=== PATIENT | male | born 1960 | race Caucasian/White ===

== ENCOUNTER 2022-03-27 07:50 | Outpatient (CLI) | payer BC, SELFPAY | END 2022-03-27 07:51 | disposition home or self-care (01) | PROVIDERS: PCP Family Medicine; Visit Provider Internal Medicine Cardiovascular Disease | DX: I50.9 Heart failure, unspecified (principal) | CPT/HCPCS: 80061; 93306 ==

== ENCOUNTER 2022-05-08 14:25 | Outpatient (CLI) | payer BC, SELFPAY ==
[2022-05-08 19:07] LABS: Chloride* 107 mmol/L (96-114); Sodium* 140 mmol/L (135-149)
[2022-05-08 19:10] LABS: Carbon Dioxide* 27 mmol/L (20-32); Creatinine* 0.8 mg/dL (0.5-1.5); Estimated Glomerular Filt Rate 99 ml/min
[2022-05-08 19:11] LABS: Blood Urea Nitrogen* 12 mg/dL (7-30); Calcium* 8.4 mg/dL (8.4-10.6); Glucose* 99 mg/dL (60-115)
== END 2022-05-08 14:26 | disposition home or self-care (01) ==
PROVIDERS: Visit Provider Internal Medicine
DX: I50.9 Heart failure, unspecified (principal)
CPT/HCPCS: 80048

== ENCOUNTER 2022-05-23 10:54 | Emergency (ER) | payer BC, SELFPAY ==
[2022-05-23 11:14] VITALS: BP 171/83; PULSE 85; RESP 28; TEMP 37.6; O2SAT 98; BMI 40.4
--- NOTE | 2022-05-23 11:28 | CRLHL7_ITS ---
For Patients: As a result of the Century Cures Act, medical imaging exams and procedure reports are released immediately into your electronic medical record. You may view this report before your referring provider. If you have questions, please contact your health care provider. CHEST 2 VIEWS INDICATION : Cough. IMPRESSION: Stable chest although the lung volumes are slightly decreased since the prior exam. FINDINGS: Cardiomegaly with no change. Mildly prominent vascular and interstitial markings. Some of the prominence is probably due to crowding in low lung volumes. No consolidation or pleural fluid. No pneumothorax. business management manager leads overlie the patient. COMPARISON: Chest radiograph 10/19/2018. Dictated by Dami Barrios MD @ 05/23/2022 1:57:47 PM (Electronically Signed)
--- NOTE | 2022-05-23 11:30 | ED_ITS ---
HPI - General Adult General Chief complaint: Shortness of Breath/Dyspnea Stated complaint: trouble breathing, vomiting Time Seen by Provider: 05/23/22 11:20 History of Present Illness HPI narrative: This 61-year-old male comes in reporting shortness of breath. He states that he began to have a sore throat yesterday and reported a fever. He states that he feels short of breath currently. He does arrive with temperature at 99.7? and respirations at 28. He is maintaining sufficient oximetry at 98% on room air. Related Data Home Medications Medication Instructions Recorded Confirmed carvedilol 6.25 mg tablet 6.25 mg PO BID 03/17/22 05/01/22 aspirin 81 mg tablet,delayed 81 mg PO QDAY 05/01/22 05/01/22 release omeprazole magnesium 2.5 mg oral 10 mg PO QDAY 05/01/22 05/01/22 suspension,delayed release (Prilosec) amlodipine 2.5 mg tablet mg 05/23/22 Previous Rx's Medication Instructions Recorded losartan 25 mg tablet 25 mg PO QDAY #90 tabs 05/08/22 nirmatrelvir 150 mg-ritonavir 100 See Rx Instructions PO .COMPLEX 05/23/22 mg tablets in a dose pack (EUA) #20 ea (Paxlovid) ondansetron 4 mg disintegrating 4 mg PO Q6H #20 tabs 05/23/22 tablet Allergies Allergy/AdvReac Type Severity Reaction Status Date / Time amoxicillin AdvReac Severe Verified 05/01/22 13:54 Penicillins AdvReac Verified 05/01/22 13:54 Review of Systems Status of ROS: Reports: 10 or more systems reviewed and unremarkable except as noted in History and below Narrative: Constitutional: No fevers, no weight gain or loss. Eyes: No discharge. No vision changes. HENT: No congestion, no ear pain. He reports a sore throat. Cardiovascular: No chest pain, no palpitations. Respiratory: No wheezes. He reports shortness of breath. Gastrointestinal: No abdominal pain, no vomiting, no diarrhea. Genitourinary: No dysuria, no hematuria. Musculoskeletal: Normal range of motion. Skin: No rashes, no pruritis. Neurological: No dizziness, weakness, sensory change, speech change. Endo/Heme/Allergies: No bruising or bleeding. No polydipsia. Pysch: no suicidality, no anxiety, no insomnia. All other systems reviewed and are negative. PFSH PFSH Social History Smoking Status: Never smoker Do you use any of these nicotine containing products: None Second hand tobacco smoke exposure: No How often do you have a drink containing alcohol: never How often do you have six or more drinks on one occasion: Never AUDIT-C Alcohol total score: 0 Non-prescribed substance use: denies use service: Yes Exam Narrative: Exam Narrative: Constitutional: Well-developed, well-nourished, no acute distress. HEENT: Normocephalic, atraumatic. Neck: Normal range of motion. Nontender. Supple. Heart: Regular. No murmurs. Normal rate. Intact distal pulses. Lungs: Clear to auscultation. No chest discomfort. No wheezes, rhonchi, or rales. Abdomen: Normal bowel sounds. Nontender. No rebound tenderness. Genitalia: Deferred. Back: No midline tenderness. Normal range of motion. Extremities: Normal range of motion. No injury. Skin: Intact. No rash. Warm. No erythema or pallor. Neurologic: No altered sensation. No weakness. Alert and oriented. Psychiatric: No suicidality. No anxiety or depression. No insomnia. Nursing notes and vitals signs are reviewed. Const: Vital Signs, click to edit/add: Vital Signs - 24 hr 05/23/22 11:14 05/23/22 12:37 05/23/22 12:45 Temperature 99.7 F H Pulse Rate 73 75 Pulse Rate [Pulse Oximeter] 85 Respiratory Rate 28 H Blood Pressure Blood Pressure [Ri ght Upper Arm] 171/83 H Pulse Oximetry 98 98 97 Oxygen Delivery Me thod Room Air 05/23/22 12:51 05/23/22 13:57 Temperature 99.9 F H Pulse Rate 71 Pulse Rate [Pulse Oximeter] 67 Respiratory Rate 36 H 28 H Blood Pressure 132/77 Blood Pressure [Ri ght Upper Arm] 130/84 Pulse Oximetry 96 96 Oxygen Delivery Me thod Room Air Course Vital Signs Vital signs: Initial Vital Signs Temperature 99.7 F H 05/23/22 11:14 Temperature Source Temporal Artery Scan 05/23/22 11:14 Pulse Rate 85 05/23/22 11:14 Respiratory Rate 28 H 05/23/22 11:14 Blood Pressure 171/83 H 05/23/22 11:14 Blood Pressure Mean 112 05/23/22 11:14 Blood Pressure Position Sitting 05/23/22 11:14 Pulse Oximetry 98 05/23/22 11:14 Oxygen Delivery Method 05/23/22 11:14 Vital Signs Temperature 99.7 F H 05/23/22 11:14 Pulse Rate 85 05/23/22 11:14 Respiratory Rate 28 H 05/23/22 11:14 Blood Pressure 171/83 H 05/23/22 11:14 Pulse Oximetry 98 05/23/22 11:14 Oxygen Delivery Method 05/23/22 11:14 Temperature 99.9 F H 05/23/22 13:57 Pulse Rate 67 05/23/22 13:57 Respiratory Rate 28 H 05/23/22 13:57 Blood Pressure 130/84 05/23/22 13:57 Pulse Oximetry 96 05/23/22 13:57 Oxygen Delivery Method 05/23/22 13:57 Medical Decision Making MDM Narrative Medical decision making narrative: This patient comes in with symptoms as described above. Testing for COVID returns positive. Chest x-ray is not showing any acute findings. Lab results also or within normal range. In particular his D-dimer is normal. He complained mostly of nausea and did received 2 separate doses of Zofran which brought relief to his symptoms. He also received a DuoNeb and an oral dose of dexamethasone 10 mg. At the time of discharge the patient appears safe for outpatient management. The treatment plan is reviewed along with written and verbal return precautions. Reasons to return and the importance of close followup were also reviewed. He received prescriptions for Paxil of id and Zofran. Lab Data Labs: Lab Results 05/23/22 05/23/22 05/23/22 Range/Units 11:20 11:55 11:55 WBC 5.96 (4.50-11.00) K/uL RBC 4.37 (4.30-5.90) m/uL Hgb 12.7 L (13.5-17.5) gm/dL Hct 37.0 (37.0-53.0) % MCV 85 (80-100) fL MCH 29 (26-34) pg MCHC 34 (32-36) gm/dL RDW Coeff of Bhaskar 12.6 (11.5-15.5) % Plt Count 178 (140-440) K/uL Neut % (Auto) 81.9 H (42.0-72.0) % Lymph % (Auto) 5.0 L (20-44) % [place] % (Auto) 11.6 H (0.0-11.0) % Eos % (Auto) 0.8 (0.0-7.0) % Baso % (Auto) 0.2 (0.0-3.0) % Neut # (Auto) 4.90 (1.7-7.0) K/uL Lymph # (Auto) 0.30 L (0.90-2.90) K/uL [place] # (Auto) 0.70 (0.00-0.90) K/UL Eos # (Auto) 0.05 (0.00-0.50) K/uL Baso # (Auto) 0.01 (0.00-0.30) K/uL D-Dimer Quant (PE/DVT) (0.00-0.50) ug/ml Sodium 133 L (135-149) mmol/L Potassium 3.7 (3.6-5.1) mmol/L Chloride 105 (96-114) mmol/L Carbon Dioxide 18 L (20-32) mmol/L BUN 8 (7-30) mg/dL Creatinine 0.7 (0.5-1.5) mg/dL Estimated Creat Clear 80.53 Estimated GFR 104 ml/min Glucose 110 (60-115) mg/dL Calcium 8.2 L (8.4-10.6) mg/dL SARS-CoV-2 (PCR) POSITIVE SARS-CoV-2 A (Negative) Influenza Type A (PCR) Negative PCR FLU A (Negative) Influenza Type B (PCR) Negative PCR FLU B (Negative) RSV (PCR) Negative PCR RSV (Negative) 05/23/22 Range/Units 11:55 WBC (4.50-11.00) K/uL RBC (4.30-5.90) m/uL Hgb (13.5-17.5) gm/dL Hct (37.0-53.0) % MCV (80-100) fL MCH (26-34) pg MCHC (32-36) gm/dL RDW Coeff of Bhaskar (11.5-15.5) % Plt Count (140-440) K/uL Neut % (Auto) (42.0-72.0) % Lymph % (Auto) (20-44) % [place] % (Auto) (0.0-11.0) % Eos % (Auto) (0.0-7.0) % Baso % (Auto) (0.0-3.0) % Neut # (Auto) (1.7-7.0) K/uL Lymph # (Auto) (0.90-2.90) K/uL [place] # (Auto) (0.00-0.90) K/UL Eos # (Auto) (0.00-0.50) K/uL Baso # (Auto) (0.00-0.30) K/uL D-Dimer Quant (PE/DVT) 0.52 H (0.00-0.50) ug/ml Sodium (135-149) mmol/L Potassium (3.6-5.1) mmol/L Chloride (96-114) mmol/L Carbon Dioxide (20-32) mmol/L BUN (7-30) mg/dL Creatinine (0.5-1.5) mg/dL Estimated Creat Clear Estimated GFR ml/min Glucose (60-115) mg/dL Calcium (8.4-10.6) mg/dL SARS-CoV-2 (PCR) (Negative) Influenza Type A (PCR) (Negative) Influenza Type B (PCR) (Negative) RSV (PCR) (Negative) Imaging Data Chest x-ray: Radiologist's impression: Cardiomegaly with no change. Mildly prominent vascular and interstitial markings. Some of the prominence is probably due to crowding in low lung volumes. No consolidation or pleural fluid. No pneumothorax. ECG Data Attestation: I personally reviewed and interpreted this ECG as follows: Interpretation: Normal sinus rhythm. Rate is 74 beats per minute. There are no ST or T-wave abnormalities. Discharge Plan Discharge Clinical Impression: COVID-19 Patient Disposition: Home, Self-Care Condition: Improved Additional Instructions: Take medication as needed and indicated. Follow up with MD or return if worsening. Prescriptions: New ondansetron 4 mg tablet,disintegrating 4 mg PO Q6H Qty: 20 0RF Paxlovid (EUA) 150-100 mg tablets,dose pack See Rx Instructions .ROUTE .COMPLEX Qty: 20 0RF Rx Instructions: orally per package directions No Action Prilosec 2.5 mg susp,delayed release for recon 10 mg PO QDAY aspirin 81 mg tablet,delayed release (DR/EC) 81 mg PO QDAY losartan 25 mg tablet 25 mg PO QDAY Qty: 90 3RF Hold Instructions: Order Change amlodipine 2.5 mg tablet Label Comments: TAKE 1 TABLET BY MOUTH DAILY carvedilol 6.25 mg tablet 6.25 mg PO BID Rx Instructions: must administer with a meal/food Follow Up/Referrals: Provider,Not a Local [Primary Care Provider] - Stand Alone Forms: MyHealth Info Instructions
[2022-05-23 12:02] LABS: PCR FLU A Negative PCR FLU A (Negative); PCR FLU B Negative PCR FLU B (Negative); PCR RSV Negative PCR RSV (Negative)
[2022-05-23 12:05] LABS: Basophils Absolute Auto 0.01 K/uL (0.00-0.30); Basophils Percent Auto 0.2 % (0.0-3.0); Eosinophils Absolute Auto 0.05 K/uL (0.00-0.50); Eosinophils Percent Auto 0.8 % (0.0-7.0); Hemoglobin* 12.7 gm/dL (13.5-17.5); Immature Granulocytes Abs Auto 0.03 K/uL (0.00-0.30); Immature Granulocytes Pct Auto 0.5 %; Mean Corpuscular HGB Conc 34 gm/dL (32-36); Mean Corpuscular Hemoglobin 29 pg (26-34); Mean Corpuscular Volume 85 fL (80-100); Monocytes Percent Auto 11.6 % (0.0-11.0); Neutrophils Percent Auto 81.9 % (42.0-72.0); Platelet Count* 178 K/uL (140-440); RDW Coefficient of Variation % 12.6 % (11.5-15.5); Red Blood Count 4.37 m/uL (4.30-5.90); White Blood Count* 5.96 K/uL (4.50-11.00)
[2022-05-23 12:11] LABS: Slide Review Reflex No
[2022-05-23 12:14] LABS: SARS PCR* POSITIVE SARS-CoV-2 (Negative)
[2022-05-23 12:24] LABS: D Dimer Quantitative* 0.52 ug/ml (0.00-0.50)
[2022-05-23 12:37] VITALS: PULSE 73; O2SAT 98
[2022-05-23 12:37] LABS: Chloride* 105 mmol/L (96-114)
[2022-05-23 12:38] LABS: Potassium* 3.7 mmol/L (3.6-5.1); Sodium* 133 mmol/L (135-149)
[2022-05-23 12:40] LABS: Carbon Dioxide* 18 mmol/L (20-32); Creatinine* 0.7 mg/dL (0.5-1.5); Est. Creatinine Clearance* 80.53; Estimated Glomerular Filt Rate 104 ml/min
[2022-05-23 12:41] LABS: Blood Urea Nitrogen* 8 mg/dL (7-30); Calcium* 8.2 mg/dL (8.4-10.6); Glucose* 110 mg/dL (60-115)
[2022-05-23 12:45] VITALS: PULSE 75; O2SAT 97
[2022-05-23 12:51] VITALS: BP 132/77; PULSE 71; RESP 36; O2SAT 96
[2022-05-23] MEDS: ONDANSETRON ODT 4 MG TAB PO ×2 (12:51→13:56)
[2022-05-23] MEDS: IPRAT-ALBUT 0.5-2.5 MG/3 ML NEB 1 NEB IH (13:56)
[2022-05-23] MEDS: dexAMETHasone 10 MG/ML inj PO (13:56)
[2022-05-23 13:57] VITALS: BP 130/84; PULSE 67; RESP 28; TEMP 37.7; O2SAT 96
[2022-05-23 14:39] VITALS: BP 115/75; PULSE 69; RESP 24; TEMP 37.7; O2SAT 94
== END 2022-05-23 14:45 | disposition home or self-care (01) ==
PROVIDERS: Emergency Provider Emergency Medicine Emergency Medical Services
DX: U07.1 COVID-19 (principal)
CPT/HCPCS: 36415; 71046; 80048; 85025; 85379; 87502; 87634; 87635; 93005; 94640; 99284; 99285; A9270; J1100

== ENCOUNTER 2022-05-28 08:47 | Outpatient (CLI) | payer BC, SELFPAY ==
[2022-05-28 14:11] LABS: SARS PCR* POSITIVE SARS-CoV-2 (Negative)
== END 2022-05-28 08:48 | disposition home or self-care (01) ==
PROVIDERS: Visit Provider Family Medicine
DX: U07.1 COVID-19 (principal)
CPT/HCPCS: 87635

== ENCOUNTER 2022-07-27 12:09 | Outpatient (CLI) | payer BC, SELFPAY ==
[2022-07-27] MEDS: PERFLUTREN LIPID MICROSPHERES 2 ML VIAL IV (14:55)
== END 2022-07-27 12:10 | disposition home or self-care (01) ==
PROVIDERS: PCP Family Medicine; Visit Provider Internal Medicine
DX: I50.9 Heart failure, unspecified (principal); I51.7 Cardiomegaly; I34.0 Nonrheumatic mitral (valve) insufficiency; I35.1 Nonrheumatic aortic (valve) insufficiency
CPT/HCPCS: 93306; Q9957

== ENCOUNTER 2022-08-06 17:10 | Outpatient (REF) | payer BC, SELFPAY ==
[2022-08-06 17:52] LABS: Chloride* 105 mmol/L (96-114); Potassium* 4.1 mmol/L (3.6-5.1); Sodium* 138 mmol/L (135-149)
[2022-08-06 17:55] LABS: Blood Urea Nitrogen* 9 mg/dL (7-30); Carbon Dioxide* 27 mmol/L (20-32); Creatinine* 0.9 mg/dL (0.5-1.5); Estimated Glomerular Filt Rate 96 ml/min; Glucose* 123 mg/dL (60-115)
[2022-08-06 17:56] LABS: Calcium* 8.8 mg/dL (8.4-10.6)
[2022-08-06 18:03] LABS: NT Pro B Type NatriureticPept* 128 pg/mL
== END 2022-08-06 17:11 | disposition home or self-care (01) ==
LOC: NPINS 17:10
PROVIDERS: PCP Family Medicine
DX: I42.8 Other cardiomyopathies (principal); I42.9 Cardiomyopathy, unspecified
CPT/HCPCS: 80048; 83880

== ENCOUNTER 2022-08-24 17:43 | Outpatient (REF) | payer BC, SELFPAY ==
[2022-08-24 18:34] LABS: Chloride* 107 mmol/L (96-114); Potassium* 4.7 mmol/L (3.6-5.1); Sodium* 139 mmol/L (135-149)
[2022-08-24 18:37] LABS: Blood Urea Nitrogen* 9 mg/dL (7-30); Calcium* 8.5 mg/dL (8.4-10.6); Carbon Dioxide* 28 mmol/L (20-32); Creatinine* 0.9 mg/dL (0.5-1.5); Estimated Glomerular Filt Rate 96 ml/min; Glucose* 93 mg/dL (60-115)
== END 2022-08-24 17:44 | disposition home or self-care (01) ==
LOC: NPINS 17:43
PROVIDERS: PCP Family Medicine; Visit Provider Family Medicine
DX: I50.22 Chronic systolic (congestive) heart failure (principal)
CPT/HCPCS: 80048

== ENCOUNTER 2022-10-01 14:52 | Outpatient (REF) | payer BC, SELFPAY ==
[2022-10-01 15:55] LABS: Chloride* 106 mmol/L (96-114); Potassium* 4.7 mmol/L (3.6-5.1); Sodium* 139 mmol/L (135-149)
[2022-10-01 15:57] LABS: Estimated Glomerular Filt Rate 85 ml/min
[2022-10-01 15:58] LABS: Blood Urea Nitrogen* 15 mg/dL (7-30); Carbon Dioxide* 26 mmol/L (20-32); Glucose* 100 mg/dL (60-115)
[2022-10-01 15:59] LABS: Calcium* 8.8 mg/dL (8.4-10.6)
== END 2022-10-01 14:53 | disposition home or self-care (01) ==
LOC: NPINS 14:52
PROVIDERS: PCP Family Medicine; Visit Provider Nurse Practitioner
DX: I50.22 Chronic systolic (congestive) heart failure (principal)
CPT/HCPCS: 80048

== ENCOUNTER 2022-10-26 13:49 | Emergency (ER) | payer BC, SELFPAY ==
[2022-10-26] VITALS (9 sets, daily range): BP systolic 126–147; BP diastolic 71–90; PULSE 43–59; RESP 16; TEMP 36.3; O2SAT 97–100; BMI 39.1
--- NOTE | 2022-10-26 14:22 | CRLHL7_ITS ---
For Patients: As a result of the Century Cures Act, medical imaging exams and procedure reports are released immediately into your electronic medical record. You may view this report before your referring provider. If you have questions, please contact your health care provider. INDICATION: SOB TECHNIQUE: Chest 2 views COMPARISON: 05/23/2022 FINDINGS: Tortuosity of the descending thoracic aorta. Cardiac silhouette is mildly enlarged. No fracture. No infiltrate or edema. No effusion or pneumothorax. IMPRESSION: No acute findings. Dictated by Delio Aparicio MD @ 10/26/2022 3:16:04 PM (Electronically Signed)
--- NOTE | 2022-10-26 14:25 | ED.GENADULT ---
HPI - General Adult General Chief complaint: Chest Pain Stated complaint: chest pain Time Seen by Provider: 10/26/22 13:53 Source: patient Mode of arrival: ambulatory Limitations: no limitations History of Present Illness HPI narrative: 62-year-old male coming in today complaining of chest pain going on day 5. Pain is located in the center of the chest radiates up and down the chest. Does not radiate from side to side. Touching it or putting pressure on the chest wall makes it worse, Advil and ice pack make it better. 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 He has not feel short of breath. He denies any recent trips or long car rides. No recent surgeries. He denies any fevers or chills, no coughing. Pain does not change with sleeping or eating. Patient does have history of congestive heart failure as well as reflux, among other things noted in the chart. Related Data Home Medications Medication Instructions Recorded Confirmed aspirin 81 mg tablet,delayed 81 mg PO QDAY 05/01/22 10/26/22 release rosuvastatin 10 mg tablet 10 mg PO QPM 10/26/22 10/26/22 sacubitril 24 mg-valsartan 26 mg 1 tab PO BID 10/26/22 10/26/22 tablet (Entresto) spironolactone 25 mg tablet mg PO 10/26/22 Previous Rx's Medication Instructions Recorded carvedilol 6.25 mg tablet 6.25 mg PO BID #180 tabs 06/15/22 Allergies Allergy/AdvReac Type Severity Reaction Status Date / Time cyclobenzaprine Allergy Intermediate Headache Verified 10/26/22 14:05 esomeprazole Allergy Unknown Abdominal Verified 10/26/22 14:05 Pain amoxicillin AdvReac Severe Verified 10/26/22 14:05 Penicillins AdvReac Verified 10/26/22 14:05 Sulfa Antibiotics Allergy Unknown itching Uncoded 06/15/22 08:05 and swelling in hands and feet Review of Systems Status of ROS: Reports: 10 or more systems reviewed and unremarkable except as noted in History and below [facility] Medical History History of tinnitus (12/16/09) ?Z86.69 - Personal history of other diseases of the nervous system and sense organs (ICD-10) Surgical History Status post nasal polypectomy ?Z98.890 - Other specified postprocedural states (ICD-10) Status post cholecystectomy ?Z90.49 - Acquired absence of other specified parts of digestive tract (ICD-10) Social History Smoking Status: Never smoker Do you use any of these nicotine containing products: None Second hand tobacco smoke exposure: No How often do you have a drink containing alcohol: never How often do you have six or more drinks on one occasion: Never AUDIT-C Alcohol total score: 0 Non-prescribed substance use: denies use service: Yes Exam Narrative: Exam Narrative: Overweight, well-developed patient in no acute distress. Alert and oriented x3. Answers questions appropriately. Mood and affect are appropriate. Thoughts are goal oriented and rational. No tangential or magical thinking noted. Patient speaks in full sentences without needing to catch his breath. HEENT: Normocephalic atraumatic. Pupils are equally round reactive to light. Extraocular muscles are intact. Conjunctivae are moist without any icterus noted. Moist mucous membranes. Neck is soft. Cardiovascular: Heart is regular rate and rhythm S1 and S2 are present without any murmurs. Patient's pain can be reproduced with palpation of the sternum and the right sternal border. Lungs: Clear to auscultation bilaterally no wheezes rhonchi or rales are appreciated. Patient takes deep breaths without any discomfort. Abdomen: Soft and nontender nondistended with normal bowel sounds. No guarding or rebound. No masses or organomegaly appreciated. Extremities: Bilateral lower extremities are without edema. Normal DP and PT pulses. Skin: Well perfused without any obvious rashes. Const: Vital Signs, click to edit/add: Vital Signs - 24 hr 10/26/22 13:58 10/26/22 14:13 10/26/22 14:33 Temperature 97.4 F L Pulse Rate 54 L Pulse Rate [Pulse Oximeter] 59 L Respiratory Rate 16 Blood Pressure 131/71 Blood Pressure [Le ft Upper Arm] 147/90 H Pulse Oximetry 100 99 Oxygen Delivery Me thod Room Air 10/26/22 14:35 10/26/22 15:00 10/26/22 15:02 Temperature Pulse Rate 55 L 53 L 51 L Pulse Rate [Pulse Oximeter] Respiratory Rate Blood Pressure 138/79 Blood Pressure [Le ft Upper Arm] Pulse Oximetry 100 98 99 Oxygen Delivery Me thod Course Course Hospital Course: Patient was quite concerned this was heart related given his history of congestive heart failure. EKG, read by me, shows normal sinus rhythm with a pulse of 60. Labs were entirely normal. Chest x-ray, read by me, without any acute pathology. Vital Signs Vital signs: Initial Vital Signs Temperature 97.4 F L 10/26/22 13:58 Temperature Source Temporal Artery Scan 10/26/22 13:58 Pulse Rate 59 L 10/26/22 13:58 Pulse Rhythm Regular 10/26/22 13:58 Pulse Strength 3+ Normal 10/26/22 13:58 Respiratory Rate 16 10/26/22 13:58 Blood Pressure 147/90 H 10/26/22 13:58 Blood Pressure Mean 109 H 10/26/22 13:58 Blood Pressure Position Semi-Fowlers 10/26/22 13:58 Pulse Oximetry 100 10/26/22 13:58 Oxygen Delivery Method Room Air 10/26/22 13:58 Vital Signs Temperature 97.4 F L 10/26/22 13:58 Pulse Rate 59 L 10/26/22 13:58 Respiratory Rate 16 10/26/22 13:58 Blood Pressure 147/90 H 10/26/22 13:58 Pulse Oximetry 100 10/26/22 13:58 Oxygen Delivery Method Room Air 10/26/22 13:58 Temperature 97.4 F L 10/26/22 13:58 Pulse Rate 51 L 10/26/22 15:02 Respiratory Rate 16 10/26/22 13:58 Blood Pressure 138/79 10/26/22 15:02 Pulse Oximetry 99 10/26/22 15:02 Oxygen Delivery Method Room Air 10/26/22 13:58 Medical Decision Making MDM Narrative Medical decision making narrative: 62-year-old male with chest wall pain. Differential diagnoses includes musculoskeletal discomfort, costochondritis, GERD. I am less concerned about coronary artery disease, pneumothorax, pneumonia or PE given his normal vital signs, normal workup, and the story and physical exam. Recommend ibuprofen as needed, heat to the chest wall and gentle stretching. Returning if symptoms worsen. Patient was in agreement and had no other questions. Lab Data Lab results reviewed: Yes I reviewed the patient's lab results Labs: Lab Results 10/26/22 Range/Units 14:35 WBC 6.52 (4.50-11.00) K/uL RBC 4.94 (4.30-5.90) m/uL Hgb 14.4 (13.5-17.5) gm/dL Hct 43.6 (37.0-53.0) % MCV 88 (80-100) fL MCH 29 (26-34) pg MCHC 33 (32-36) gm/dL RDW Coeff of Bhaskar 12.5 (11.5-15.5) % Plt Count 193 (140-440) K/uL Neut % (Auto) 76.8 H (42.0-72.0) % Lymph % (Auto) 14.6 L (20-44) % [place] % (Auto) 6.1 (0.0-11.0) % Eos % (Auto) 1.4 (0.0-7.0) % Baso % (Auto) 0.2 (0.0-3.0) % Neut # (Auto) 5.00 (1.7-7.0) K/uL Lymph # (Auto) 1.00 (0.90-2.90) K/uL [place] # (Auto) 0.40 (0.00-0.90) K/UL Eos # (Auto) 0.09 (0.00-0.50) K/uL Baso # (Auto) 0.01 (0.00-0.30) K/uL Sodium 138 (135-149) mmol/L Potassium 4.0 (3.6-5.1) mmol/L Chloride 106 (96-114) mmol/L Carbon Dioxide 23 (20-32) mmol/L BUN 8 (7-30) mg/dL Creatinine 0.8 (0.5-1.5) mg/dL Estimated Creat Clear 79.48 Estimated GFR 99 ml/min Glucose 113 (60-115) mg/dL Lactate 0.9 (0.5-1.9) mmol/L Calcium 8.7 (8.4-10.6) mg/dL Total Bilirubin 0.8 (0.1-1.5) mg/dL Direct Bilirubin 0.1 (0.0-0.5) mg/dL AST 21 (12-35) U/L ALT 15 (4-50) U/L Alkaline Phosphatase 75 (40-150) U/L Troponin I 0.01 (0.01-0.04) ng/mL C-Reactive Protein < 0.5 L (0.5-1.0) mg/dL Total Protein 7.4 (6.0-8.3) g/dL Albumin 4.2 (3.3-5.0) g/dL Lipase 76 (23-300) U/L Imaging Data Chest x-ray: Attestation: I have reviewed the pertinent imaging results. Radiologist's impression: Chest 2 views COMPARISON: 05/23/2022 FINDINGS: Tortuosity of the descending thoracic aorta. Cardiac silhouette is mildly enlarged. No fracture. No infiltrate or edema. No effusion or pneumothorax. IMPRESSION: No acute findings. ECG Data Attestation: I personally reviewed and interpreted this ECG as follows: Discharge Plan Discharge Clinical Impression: Acute chest wall pain Patient Disposition: Home, Self-Care Condition: Stable Additional Instructions: Your symptoms are consistent with an inflammation of the joints where the ribs meet the breast bone. Recommend you continue Advil as needed/as directed and using heat pack or ice to the chest wall, whichever one feels better. Do not apply heat or ice directly to the skin. Return to the ER if your symptoms are worsening. There is no evidence of new heart or lung disease during your visit today. Prescriptions: No Action aspirin 81 mg tablet,delayed release (DR/EC) 81 mg PO QDAY carvedilol 6.25 mg tablet 6.25 mg PO BID Qty: 180 3RF Rx Instructions: must administer with a meal/food spironolactone 25 mg tablet PO rosuvastatin 10 mg tablet 10 mg PO QPM Entresto 24-26 mg tablet 1 tab PO BID Follow Up/Referrals: Lawson Bal MD [Primary Care Provider] - Stand Alone Forms: [employer] Info Instructions
[2022-10-26 14:47] LABS: Lactate* 0.9 mmol/L (0.5-1.9)
[2022-10-26 14:50] LABS: Basophils Absolute Auto 0.01 K/uL (0.00-0.30); Basophils Percent Auto 0.2 % (0.0-3.0); Eosinophils Absolute Auto 0.09 K/uL (0.00-0.50); Eosinophils Percent Auto 1.4 % (0.0-7.0); Hematocrit 43.6 % (37.0-53.0); Hemoglobin* 14.4 gm/dL (13.5-17.5); Immature Granulocytes Abs Auto 0.06 K/uL (0.00-0.30); Immature Granulocytes Pct Auto 0.9 %; Lymphocytes Percent Auto 14.6 % (20-44); Mean Corpuscular HGB Conc 33 gm/dL (32-36); Mean Corpuscular Hemoglobin 29 pg (26-34); Mean Corpuscular Volume 88 fL (80-100); Monocytes Percent Auto 6.1 % (0.0-11.0); Neutrophils Percent Auto 76.8 % (42.0-72.0); Platelet Count* 193 K/uL (140-440); RDW Coefficient of Variation % 12.5 % (11.5-15.5); Red Blood Count 4.94 m/uL (4.30-5.90); White Blood Count* 6.52 K/uL (4.50-11.00)
[2022-10-26 14:54] LABS: Slide Review Reflex No
[2022-10-26 15:10] LABS: Albumin* 4.2 g/dL (3.3-5.0); Chloride* 106 mmol/L (96-114)
[2022-10-26 15:11] LABS: Sodium* 138 mmol/L (135-149)
[2022-10-26 15:13] LABS: Creatinine* 0.8 mg/dL (0.5-1.5); Est. Creatinine Clearance* 79.48; Estimated Glomerular Filt Rate 99 ml/min
[2022-10-26 15:14] LABS: Alanine Aminotransferase* 15 U/L (4-50); Alkaline Phosphatase* 75 U/L (40-150); Aspartate Amino Transferase* 21 U/L (12-35); Bilirubin Direct* 0.1 mg/dL (0.0-0.5); Bilirubin Total* 0.8 mg/dL (0.1-1.5); Blood Urea Nitrogen* 8 mg/dL (7-30); Carbon Dioxide* 23 mmol/L (20-32); Glucose* 113 mg/dL (60-115); Lipase* 76 U/L (23-300); Total Protein* 7.4 g/dL (6.0-8.3)
[2022-10-26 15:15] LABS: Calcium* 8.7 mg/dL (8.4-10.6)
[2022-10-26 15:24] LABS: C Reactive Protein* < 0.5 mg/dL (0.5-1.0)
[2022-10-26 15:26] LABS: Troponin I* 0.01 ng/mL (0.01-0.04)
== END 2022-10-26 16:00 | disposition home or self-care (01) ==
PROVIDERS: Emergency Provider Family Medicine; PCP Family Medicine
DX: R07.89 Other chest pain (principal)
CPT/HCPCS: 36415; 71046; 80048; 80076; 83605; 83690; 84484; 85025; 86140; 93005; 99284

== ENCOUNTER 2022-12-14 17:33 | Outpatient (REF) | payer BC, SELFPAY ==
[2022-12-14 19:08] LABS: Chloride* 106 mmol/L (96-114); Sodium* 139 mmol/L (135-149)
[2022-12-14 19:09] LABS: Potassium* 4.6 mmol/L (3.6-5.1)
[2022-12-14 19:11] LABS: Anion Gap 5 mEq/L (7-15); Carbon Dioxide* 28 mmol/L (20-32); Creatinine* 0.8 mg/dL (0.5-1.5); Estimated Glomerular Filt Rate 99 ml/min
[2022-12-14 19:12] LABS: Blood Urea Nitrogen* 8 mg/dL (7-30); Calcium* 8.7 mg/dL (8.4-10.6); Glucose* 83 mg/dL (60-115)
[2022-12-14 19:29] LABS: NT Pro B Type NatriureticPept* 68 pg/mL
== END 2022-12-14 17:34 | disposition home or self-care (01) ==
LOC: NPINS 17:33
PROVIDERS: PCP Family Medicine; Visit Provider Family Medicine
DX: I50.22 Chronic systolic (congestive) heart failure (principal)
CPT/HCPCS: 80048; 83880

== ENCOUNTER 2023-07-23 08:42 | Emergency (ER) | payer BC, SELFPAY ==
[2023-07-23 08:45] VITALS: BP 133/78; PULSE 64; RESP 18; TEMP 36.7; O2SAT 97; BMI 38.4
[2023-07-23 09:18] LABS: Basophils Percent Auto 0.2 % (0.0-3.0); Eosinophils Percent Auto 4.3 % (0.0-7.0); Hematocrit 39.4 % (37.0-53.0); Hemoglobin* 12.7 gm/dL (13.5-17.5); Immature Granulocytes Pct Auto 0.2 %; Lymphocytes Percent Auto 26.9 % (20-44); Mean Corpuscular HGB Conc 32 gm/dL (32-36); Mean Corpuscular Hemoglobin 29 pg (26-34); Mean Corpuscular Volume 90 fL (80-100); Monocytes Percent Auto 10.6 % (0.0-11.0); Neutrophils Percent Auto 57.8 % (42.0-72.0); Platelet Count* 183 K/uL (140-440); RDW Coefficient of Variation % 12.9 % (11.5-15.5); White Blood Count* 4.42 K/uL (4.50-11.00)
[2023-07-23 09:24] LABS: Appearance Urine Clear (Clear); Bilirubin Urine Negative (Negative); Blood Urine Trace-intact (Negative); Color Urine Yellow (Yellow); Glucose Urine Negative (Negative); Ketones Urine Negative (Negative); Leukocyte Esterase Urine Negative (Negative); Nitrite Urine Negative (Negative); Protein Urine Negative (Negative); Urobilinogen Urine 0.2 (0.2-1.0); pH Urine 6.5 (5.0-8.5)
[2023-07-23 09:29] LABS: Slide Review Reflex No
--- NOTE | 2023-07-23 09:29 | ED_ITS ---
HPI - General Adult General Chief complaint: Abdominal Pain Stated complaint: abdominal pain Time Seen by Provider: 07/23/23 08:50 Source: patient Mode of arrival: ambulatory Limitations: no limitations History of Present Illness HPI narrative: patient is a 62-year-old male coming in today complaining about lower abdominal pain going on for about 4 days. Pain is located across the entire lower abdomen. Nothing makes it better, certain movement makes it worse. He believed that he was constipated so he took a laxative 2 times yesterday and had diarrhea around 1:00 a.m. in the morning. The this did not change his discomfort. He rates his pain as a 2/10. He denies any nausea or vomiting. No changes in his appetite. No weight changes. He denies any dysuria, increased urinary frequency or urgency. There is no blood in his stool. Pain does not radiate. Related Data Home Medications Medication Instructions Recorded Confirmed aspirin 81 mg tablet,delayed 81 mg PO QDAY 05/01/22 06/09/23 release rosuvastatin 10 mg tablet 10 mg PO QPM 10/26/22 06/09/23 sacubitril 24 mg-valsartan 26 mg 1 tab PO BID 11/13/22 06/09/23 tablet (Entresto) carvedilol 6.25 mg tablet 6.25 mg PO BID 06/09/23 06/09/23 spironolactone 25 mg tablet 12.5 mg PO QDAY 06/09/23 06/09/23 Previous Rx's Medication Instructions Recorded alprazolam 0.5 mg tablet 0.5 mg PO TID PRN anxiety #30 tabs 06/09/23 Allergies Allergy/AdvReac Type Severity Reaction Status Date / Time cyclobenzaprine Allergy Intermediate Headache Verified 06/09/23 10:27 esomeprazole Allergy Unknown Abdominal Verified 06/09/23 10:27 Pain amoxicillin AdvReac Severe Verified 06/09/23 10:27 Penicillins AdvReac Verified 06/09/23 10:27 Sulfa Antibiotics Allergy Unknown itching Uncoded 06/09/23 10:27 and swelling in hands and feet Review of Systems Status of ROS: Reports: 10 or more systems reviewed and unremarkable except as noted in History and below [facility] Medical History COVID-19 ?U07.1 - COVID-19 (ICD-10) History of tinnitus (12/16/09) ?Z86.69 - Personal history of other diseases of the nervous system and sense organs (ICD-10) Surgical History Status post nasal polypectomy ?Z98.890 - Other specified postprocedural states (ICD-10) Status post cholecystectomy ?Z90.49 - Acquired absence of other specified parts of digestive tract (ICD- 10) Social History Smoking Status: Never smoker Do you use any of these nicotine containing products: None Second hand tobacco smoke exposure: No How often do you have a drink containing alcohol: never How often do you have six or more drinks on one occasion: Never AUDIT-C Alcohol total score: 0 Non-prescribed substance use: denies use Little interest or pleasure in doing things: not at all Feeling down, depressed, or hopeless: several days service: Yes Exam Narrative: Exam Narrative: Well-nourished well-developed patient in no acute distress. Alert and oriented. Answers questions appropriately. Mood Is appropriate, affect is sl ightly flat. Thoughts are goal oriented and rational. No tangential or magical thinking noted. Patient speaks in full sentences without needing to catch His breath. he does not appear ill or toxic. HEENT: Normocephalic atraumatic. Pupils are equally round reactive to light. Extraocular muscles are intact. Conjunctivae are moist without any icterus noted. Moist mucous membranes. Posterior pharynx is normal. Neck is soft without any lymphadenopathy or thyromegaly. No masses are appreciated. Cardiovascular: Heart is regular rate and rhythm S1 and S2 are present without any murmurs. Lungs: Clear to auscultation bilaterally no wheezes rhonchi or rales are appreciated. Patient takes deep breaths without any discomfort. Abdomen: Soft and nontender nondistended with normal bowel sounds. No guarding or rebound. No masses or organomegaly appreciated. Extremities: Bilateral lower extremities are without edema. Skin: Well perfused . Const: Vital Signs, click to edit/add: Vital Signs - 24 hr 07/23/23 08:45 Temperature 98.1 F Pulse Rate [Pulse Oximeter] 64 Respiratory Rate 18 Blood Pressure [Ri ght Upper Arm] 133/78 Pulse Oximetry 97 Oxygen Delivery Me thod Room Air Course Course ED Course: Blood work was unremarkable. Vital Signs Vital signs: Initial Vital Signs Temperature 98.1 F 07/23/23 08:45 Temperature Source Oral 07/23/23 08:45 Pulse Rate 64 07/23/23 08:45 Respiratory Rate 18 07/23/23 08:45 Blood Pressure 133/78 07/23/23 08:45 Blood Pressure Mean 96 07/23/23 08:45 Blood Pressure Position Sitting 07/23/23 08:45 Pulse Oximetry 97 07/23/23 08:45 Oxygen Delivery Method Room Air 07/23/23 08:45 Vital Signs Temperature 98.1 F 07/23/23 08:45 Pulse Rate 64 07/23/23 08:45 Respiratory Rate 18 07/23/23 08:45 Blood Pressure 133/78 07/23/23 08:45 Pulse Oximetry 97 07/23/23 08:45 Oxygen Delivery Method Room Air 07/23/23 08:45 Temperature 98.1 F 07/23/23 08:45 Pulse Rate 64 07/23/23 08:45 Respiratory Rate 18 07/23/23 08:45 Blood Pressure 133/78 07/23/23 08:45 Pulse Oximetry 97 07/23/23 08:45 Oxygen Delivery Method Room Air 07/23/23 08:45 Medical Decision Making MDM Narrative Medical decision making narrative: 62-year-old male with mild, nonspecific abdominal discomfort with normal laboratory evaluations. We discussed causes could include cramping of the bowels, musculoskeletal pain, mild constipation. I do not see any evidence of infection, inflammation. There is no evidence of a UTI. At this point recommend symptomatic treatment and we discussed reasons for follow-up including fevers, vomiting or worsening pain. Patient had no other questions. Lab Data Lab results reviewed: Yes I reviewed the patient's lab results Labs: Lab Results 07/23/23 07/23/23 Range/Units 09:10 09:15 WBC 4.42 L (4.50-11.00) K/uL RBC 4.40 (4.30-5.90) m/uL Hgb 12.7 L (13.5-17.5) gm/dL Hct 39.4 (37.0-53.0) % MCV 90 (80-100) fL MCH 29 (26-34) pg MCHC 32 (32-36) gm/dL RDW Coeff of Bhaskar 12.9 (11.5-15.5) % Plt Count 183 (140-440) K/uL Neut % (Auto) 57.8 (42.0-72.0) % Lymph % (Auto) 26.9 (20-44) % [place] % (Auto) 10.6 (0.0-11.0) % Eos % (Auto) 4.3 (0.0-7.0) % Baso % (Auto) 0.2 (0.0-3.0) % Neut # (Auto) 2.60 (1.7-7.0) K/uL Lymph # (Auto) 1.20 (0.90-2.90) K/uL [place] # (Auto) 0.50 (0.00-0.90) K/UL Eos # (Auto) 0.20 (0.00-0.50) K/uL Baso # (Auto) 0.00 (0.00-0.30) K/uL Abs Immat Gran (auto) 0.00 (0.00-0.30) K/uL Imm/Tot Granulo (auto) 0.2 % Sodium 139 (135-149) mmol/L Potassium 4.1 (3.6-5.1) mmol/L Chloride 107 (96-114) mmol/L Carbon Dioxide 27 (20-32) mmol/L Anion Gap 5 L (7-15) mEq/L BUN 7 (7-30) mg/dL Creatinine 0.8 (0.5-1.5) mg/dL Estimated Creat Clear 79.48 Estimated GFR 99 ml/min Glucose 94 (60-115) mg/dL Calcium 8.9 (8.4-10.6) mg/dL Total Bilirubin 0.9 (0.1-1.5) mg/dL Direct Bilirubin 0.2 (0.0-0.5) mg/dL AST 21 (12-35) U/L ALT 11 (4-50) U/L Alkaline Phosphatase 69 (40-150) U/L C-Reactive Protein < 0.5 L (0.5-1.0) mg/dL Total Protein 7.0 (6.0-8.3) g/dL Albumin 4.0 (3.3-5.0) g/dL Lipase 55 (23-300) U/L Urine Color Yellow (Yellow) Urine Appearance Clear (Clear) Urine pH 6.5 (5.0-8.5) Ur Specific [place] 1.020 (1.000-1.030) Urine Protein Negative (Negative) Urine Glucose (UA) Negative (Negative) Urine Ketones Negative (Negative) Urine Blood Trace-intact A (Negative) Urine Nitrite Negative (Negative) Urine Bilirubin Negative (Negative) Urine Urobilinogen 0.2 (0.2-1.0) Ur Leukocyte Esterase Negative (Negative) Urine RBC 0-2 (0-2) Urine WBC 0-2 (0-5) Ur Squamous Epith Cells Few (None-Few) Urine Bacteria Few A (None) Urine Mucus Few A (None) Discharge Plan Discharge Clinical Impression: Abdominal pain Patient Disposition: Home, Self-Care Condition: Stable Additional Instructions: Your workup today was unremarkable. There is no evidence of infection or inflammation noted. Causes of abdominal discomfort can include cramping of the bowels or muscular will skeletal discomfort. Okay to try Tylenol or heating pad to the uncomfortable area. Return to the ER if you develop fever, vomiting or worsening pain. Would recommend stopping the laxatives. Prescriptions: No Action aspirin 81 mg tablet,delayed release (DR/EC) 81 mg PO QDAY Entresto 24-26 mg tablet 1 tab PO BID spironolactone 25 mg tablet 12.5 mg PO QDAY carvedilol 6.25 mg tablet 6.25 mg PO BID Patient Comments: Patient takes half a tab alprazolam 0.5 mg tablet 0.5 mg PO TID PRN (Reason: anxiety) Qty: 30 0RF rosuvastatin 10 mg tablet 10 mg PO QPM Follow Up/Referrals: Lawson Bal MD [Primary Care Provider] - Stand Alone Forms: [employer] Info Instructions
[2023-07-23 09:30] LABS: Chloride* 107 mmol/L (96-114); Potassium* 4.1 mmol/L (3.6-5.1); Sodium* 139 mmol/L (135-149)
[2023-07-23 09:32] LABS: Creatinine* 0.8 mg/dL (0.5-1.5); Est. Creatinine Clearance* 79.48; Estimated Glomerular Filt Rate 99 ml/min
[2023-07-23 09:33] LABS: Anion Gap 5 mEq/L (7-15); Blood Urea Nitrogen* 7 mg/dL (7-30); Calcium* 8.9 mg/dL (8.4-10.6); Carbon Dioxide* 27 mmol/L (20-32); Glucose* 94 mg/dL (60-115)
[2023-07-23 09:34] LABS: Alanine Aminotransferase* 11 U/L (4-50); Alkaline Phosphatase* 69 U/L (40-150); Aspartate Amino Transferase* 21 U/L (12-35); Bilirubin Direct* 0.2 mg/dL (0.0-0.5); Bilirubin Total* 0.9 mg/dL (0.1-1.5); Lipase* 55 U/L (23-300)
[2023-07-23 09:55] LABS: C Reactive Protein* < 0.5 mg/dL (0.5-1.0)
[2023-07-23 09:56] LABS: Bacteria Urine Few; Mucus Urine Few; RBC Urine 0-2 (0-2); Squamous Epithelial Cell Urine Few (None-Few); WBC Urine 0-2 (0-5)
--- OUTSIDE RECORDS SUMMARY | 2023-07-30 12:18 | XMS_ITS | Clinical Summary ---
Author Name Unknown Organization [facility] Address [place], [place] [address] Care Team Providers Care Resident Assistant Name Role Phone Racheal Saldana MD Unavailable [phone] [facility] Unavailable Lawson Bal MD Primary Care Provider Allergies Active Allergy Reactions Criticality Noted Date Comments Amoxicillin Hives 08/10/2007 Cyclobenzaprine Headache,Other - Describe In Comment Field Sore throat and dry mouth Esomeprazole Other - Describe In Comment Field stomach pain Sulfa (Sulfonamide Antibiotics) 08/10/2007 as a child Medications Medication Sig Dispensed Refills Start Date End Date Status omeprazole (PRILOSEC) 10 mg capsule Take 1 capsule by mouth once daily before a meal. 0 01/30/2013 Active acetaminophen (TYLENOL) 325 mg tabletIndication s:pain Take 650 mg by mouth every 4 hours if needed. Max acetaminophen dose: 4000mg in 24 hrs. Indications: Pain Active spironolactone (ALDACTONE) 25 mg tabletIndication s:Heart failure, unspecified HF chronicity, unspecified heart failure type (HC) Take 0.5 Tablets (12.5 mg) by mouth once daily. 45 Tablet 3 11/26/2022 Active furosemide (LASIX) 20 mg tabletIndication s:SOB (shortness of breath) TAKE ONE-HALF TABLET EVERY DAY DIRECTED BY [facility] 15 Tablet 12/07/2022 Active losartan (COZAAR) 50 mg tabletIndication s:Chronic HFrEF (heart failure with reduced ejection fraction) (HC) Take 1 Tablet (50 mg) by mouth two times daily. 180 Tablet 3 01/11/2023 Active rosuvastatin (CRESTOR) 10 mg tabletIndication s:Dyslipidemia Take 1 Tablet (10 mg) by mouth once daily. Further refills at appointment on July 27, 2023 90 Tablet 07/19/2023 Active carvediloL (COREG) 3.125 mg tabletIndication s:Heart failure, unspecified HF chronicity, unspecified heart failure type (HC) Take 1 Tablet (3.125 mg) by mouth two times daily with meals. 180 Tablet 3 07/27/2023 Active aspirin (ECOTRIN) 81 mg enteric coated tablet Take 1 tablet by mouth once daily with a meal. 0 02/16/2020 4 Discontinue d(*Med complete/Re gimen complete/Le tal of care change) carvediloL (COREG) 3.125 mg tabletIndication s:Heart failure, unspecified HF chronicity, unspecified heart failure type (HC) Take 1 Tablet (3.125 mg) by mouth two times daily with meals. 180 Tablet 3 03/09/2023 4 Discontinue d(Reorder (E-cancel not sent)) rosuvastatin (CRESTOR) 10 mg tabletIndication s:Dyslipidemia Take 1 Tablet (10 mg) by mouth once daily. Due for cardiology follow up. Please call [phone] to schedule. 90 Tablet 06/16/2023 4 Discontinue d(Reorder (E-cancel not sent)) Active Problems Problem Noted Date Diagnosed Date Primary cardiomyopathy 04/04/2021 Cardiomyopathy 05/12/2019 Allergic rhinitis, cause unspecified 08/10/2007 Screening for lipoid disorders 08/10/2007 Overview: 02-22-2006 Total-214 LDL-136 HDL-45 Trig-163 Encounters Date Type Department Care Team Description 07/27/2023 1:30 PM CDT Office Visit [address] [place] [address] Cortes Schumacher MD Follow Up (6 month F/U, echo done 07/10. pt states feeling good, no recent or current cardiac symptoms. Feels heart is doing really well, no SOB or dizziness which is new for him. Questions about carvedilol) 07/27/2023 Telephone [place] [facility] [address] [facility] [address] [place] [phone] Cortes Schumacher MD Medication Management (GLP-1 mcgee check ) 07/27/2023 Travel 07/11/2023 12:57 PM CDT - 07/11/2023 11:59 PM CDT Hospital Encounter [facility] [address] [facility] [place] [address] Fernanda Wakefield CNS Primary cardiomyopathy (HC) 07/11/2023 Travel 06/16/2023 Refill [facility] [place] [address] [facility] [address] [place] [phone] Cassidy Leonardo NP Refill Request (Rosuvastatin) 05/04/2023 Travel from Last 3 Months Immunizations Name Administration Dates Next Due Td (Age >=7 Years) 04/26/1999 Family History Medical History Relation Name Comments Unknown Father [place] age 40 Other Maternal Uncle Kidney Failur e Thyroid Disease Mother Diabetes Paternal Aunt 1 Other Paternal Aunt 2 [place] Allergies Sister 2 Relation Name Status Comments Brother Alive Father Maternal Uncle Mother Alive Paternal Aunt 1 Paternal Aunt 2 Sister 1 Alive Sister 2 Social History Tobacco Use Types Packs/Day Years Used Date Smoking Tobacco: Never Smokeless Tobacco: Never Tobacco Cessation:Counseling Given: Yes Comments:Non Smoker Alcohol Use Standard Drinks/Week Comments No 0 (1 standard drink = 0.6 oz pur e alcohol) Social Connections Answer Date Recorded Frequency of Communication with Friends and Fami ly Not on file 04/26/2021 Financial Resource Strain Answer Date R ecorded Difficulty of Paying Living Expenses Not on file 04/26/2021 Difficulty of Paying Living Expenses Not on file 04/26/2021 Sex and Gender Information Value Date Recorded Sex Assigned at Not on file Gender Identity Not on file Sexual Orientation Not on file Obstetrics History Last Filed Vital Signs Vital Sign Reading Time Taken Comments Blood Pressure 130/92 07/27/2023 1:23 PM CDT Pulse 62 07/27/2023 1:23 PM CDT Temperature 36.8 ??C (98.2 ??F) 12/05/2018 2:08 PM CD T Respiratory Rate 14 02/16/2020 3:10 PM CDT Oxygen Saturation 97% 07/27/2023 1:23 PM CDT Inhaled Oxygen Concentration - - Weight 124.7 kg (275 lb) 07/27/2023 1:23 PM CDT Height 180.3 cm (5' 11) 07/27/2023 1:23 PM CDT Body Mass Index 38.35 07/27/2023 1:23 PM CDT Plan of Treatment Health Maintenance Due Date Last Done Comments Pneumococcal series for age 6-64 (1 of 2 - PCV) 1964 Tdap 1969 Depression screening for age 12+ 1970 HIV for age 15-65 1973 Hepatitis C screening for ag e 18-79 1976 Colonoscopy through age 75 10/18/2003 Zoster (shingles) series for age 50+ (1 of 2) 2008 Tetanus booster 04/26/2009 04/26/1999 Lipids for age 45-75 02/22/2011 02/22/2006 (Completed outside of [facility]) COVID-19 vaccine series (2 - 2022- season) 2022 2020 Influenza for age 50-64 12/26/2023 BMI (ht and wt on same day) for age 18+ 07/26/2024 07/27/2023, 08/06/2022, 07/21/2019, Additional history exists Procedures Procedure Name Priority Date/Time Associated Diagnosis Comments ECHO TTE COMPLETE WO CONTRAST Routine 07/11/2023 1:39 PM CDT Primary cardiomyopathy (HC) from Last 3 Months Results * ECHO TTE COMPLETE WO CONTRAST (07/11/2023 1:39 PM CDT) AORTIC VALVE MEAN PG 3 mmHg EJECTION FRACTION 43 % LVEDD 6.7 cm EJECTION FRACTION 40 - 45% Anatomical Region Laterality Modality Ultrasound 07/11/2023 12:0 7 PM CDT Narrative 07/11/2023 6:51 PM CDT ECHOCARDIOGRAM PATIENCE LLANES ? Accession#: ?? [id number] : ?1960 62 years Study Date: ?? 07/11/2023 12:07:01 PM Gender: M ?BP: ? 127/77 mmHg Height: 180.34 cm ?BSA: ?2.46 m? ? ? Weight: 130.64 kg ?Tech: ? GNM ? Referring MD: FERNANDA WAKEFIELD Site: ? Reading Location: [facility] Patient Location: Outpatient. Procedure: 2D, Color Doppler and Spectral Doppler. Indication for study: Primary Cardiomyopathy Cardiac Rhythm: Regular.Study quality: Good. Final Impressions: 1. Moderate to severely increased LV size, normal wall thickness, mildly reduced global systolic function with an estimated EF of 40 - 45%. 2. There is mild global left ventricular hypokinesis. 3. Right ventricular cavity size is normal, global systolic RV function is normal. 4. The aortic valve is trileaflet and sclerotic, no stenosis and no regurgitation. 5. The mitral valve is sclerotic, mild mitral regurgitation. Comparison Compared to prior exam images and report of TTE 07/27/2022: - The left ventricular function has slightly improved. Chamber Sizes and Function Moderate to severely increased left ventricular size, normal wall thickness, mildly reduced global systolic function with an estimated EF of 40 - 45%. There is mild global left ventricular hypokinesis. Left atrial size is mildly enlarged. Left atrial pressure is normal. Right ventricular cavity size is normal, global systolic RV function is normal. RV wall thickness is normal. The right atrium is mildly enlarged. Right atrial area is 19 cm? ? ?. The pulmonary artery is of normal size and origin. The sinus of Valsalva is normal sized. The ascending aorta is normal sized. Valves, RV Pressures and Diastolic Function The aortic valve is trileaflet and sclerotic, no stenosis and no regurgitation. The mitral valve is sclerotic, mild mitral regurgitation. Spectral Doppler shows Grade 1 pattern of LV diastolic filling. The tricuspid valve is normal in structure. Tricuspid regurgitation is regurgitation is not evident. The pulmonic valve is normal. No pulmonary regurgitation. Masses, Effusion, Shunts There is no pericardial effusion. The inferior vena cava is normal sized, respiratory size variation greater than 50%. No left to right shunting was detected by limited color flow Doppler interrogation of the interatrial septum. MEASUREMENTS AND CALCULATIONS 2-D Measurements and LV Function: LVID (d) 6.6 cm LV FS% (2D) ?? 25 % LVID (s) 5.0 cm LVOT diameter 2.4 cm IVS (d) ??1.0 cm HR ?55 bpm LVPW (d) 0.9 cm LA Vol index ??36 ml/m2 Ao Sinus 3.5 cm RA area ? 19 cm? ? ? Asc Ao ?? 3.6 cm RV Max 4C (d) 3.1 cm LA ? 5.2 cm Diastology: Mitral ?Tissue Doppler E Peak 0.7 m/s ??e', Septum ? 0.08 m/s A Peak 0.8 m/s ??e', Lateral ?0.08 m/s E/A ?0.9 ?E/e' Average ?? 8.91 DT ? 248 msec Aortic Valve: Vmax ? 1.2 m/s ??ALEM (V) ?? 2.89 cm? ? ? VTI ?0.30 m ?? ALEM (I) ?? 2.87 cm? ? ? LVOT V max 0.7 m/s ??Max PG ?5 mmHg LVOT VTI ?? 0.19 m ?? Mean PG ?? 3 mmHg SV ? 87 ml ?Dim Index 0.63 SV index ?? 35 ml/m? ? ? CO ?4.8 l/min ?CI ?1.9 l/min/m? ? ? Mitral Valve: MVA ?3.1 cm? ? ? MV P 1/2 72 msec Tricuspid Valve and estimated PA pressures: TAPSE 2.6 cm . This study was interpreted by an [facility] accredited facility. ??Final ?? Procedure Note Delio Maldonado MD - 07/11/2023 ECHOCARDIOGRAM PATIENCE LLANES : 1960 62 years Study Date: 07/11/2023 12:07:01 PM Gender: M BP: 127/77 mmHg Height: 180.34 cm BSA: 2.46 m? ? ? Weight: 130.64 kg Tech: [facility] Referring MD: FERNANDA WAKEFIELD Site: Reading Location: [facility] Patient Location: Outpatient. Procedure: 2D, Color Doppler and Spectral Doppler. Indication for study: Primary Cardiomyopathy Cardiac Rhythm: Regular.Study quality: Good. Final Impressions: 1. Moderate to severely increased LV size, normal wall thickness, mildlyreduced global systolic function with an estimated EF of 40 - 45%. 2. There is mild global left ventricular hypokinesis. 3. Right ventricular cavity size is normal, global systolic RV functionis normal. 4. The aortic valve is trileaflet and sclerotic, no stenosis and noregurgitation. 5. The mitral valve is sclerotic, mild mitral regurgitation. Comparison Compared to prior exam images and report of TTE 07/27/2022: - The left ventricular function has slightly improved. Chamber Sizes and Function Moderate to severely increased left ventricular size, normal wallthickness, mildly reduced global systolic function with an estimated EF of40 - 45%. There is mild global left ventricular hypokinesis. Left atrialsize is mildly enlarged. Left atrial pressure is normal. Right ventricularcavity size is normal, global systolic RV function is normal. RV wallthickness is normal. The right atrium is mildly enlarged. Right atrialarea is 19 cm? ? ?. The pulmonary artery is of normal size and origin. Thesinus of Valsalva is normal sized. The ascending aorta is normal sized. Valves, RV Pressures and Diastolic Function The aortic valve is trileaflet and sclerotic, no stenosis and noregurgitation. The mitral valve is sclerotic, mild mitral regurgitation.Spectral Doppler shows Grade 1 pattern of LV diastolic filling. Thetricuspid valve is normal in structure. Tricuspid regurgitation isregurgitation is not evident. The pulmonic valve is normal. No pulmonaryregurgitation. Masses, Effusion, Shunts There is no pericardial effusion. The inferior vena cava is normal sized,respiratory size variation greater than 50%. No left to right shunting wasdetected by limited color flow Doppler interrogation of the interatrialseptum. MEASUREMENTS AND CALCULATIONS 2-D Measurements and LV Function: LVID (d) 6.6 cm LV FS% (2D) 25 % LVID (s) 5.0 cm LVOT diameter 2.4 cm IVS (d) 1.0 cm HR 55 bpm LVPW (d) 0.9 cm LA Vol index 36 ml/m2 Ao Sinus 3.5 cm RA area 19 cm? ? ? Asc Ao 3.6 cm RV Max 4C (d) 3.1 cm LA 5.2 cm Diastology: Mitral Tissue Doppler E Peak 0.7 m/s e', Septum 0.08 m/s A Peak 0.8 m/s e', Lateral 0.08 m/s E/A 0.9 E/e' Average 8.91 DT 248 msec Aortic Valve: Vmax 1.2 m/s ALEM (V) 2.89 cm? ? ? VTI 0.30 m ALEM (I) 2.87 cm? ? ? LVOT V max 0.7 m/s Max PG 5 mmHg LVOT VTI 0.19 m Mean PG 3 mmHg SV 87 ml Dim Index 0.63 SV index 35 ml/m? ? ? CO 4.8 l/min CI 1.9 l/min/m? ? ? Mitral Valve: MVA 3.1 cm? ? ? MV P 1/2 72 msec Tricuspid Valve and estimated PA pressures: TAPSE 2.6 cm . This study was interpreted by an [facility] accredited facility. Final Fernanda Wakefield LIEUTENA[employer] COLONEL ECHO ORD from Last 3 Months Advance Directives * Full Code (Latest Code Status on File) Date Activated Date Inactivated Comments 12/05/2018 11:59 AM 12/05/2018 3:12 PM Care Teams Resident Assistant Relationship Specialty Start Date End Date Lawson Bal MD [address] [place] [address] PCP - General Family Practice 06/02/23 Racheal Saldana MD [address] [place] [address] 12/30/10 [facility] [address] [address] Cardiology - CHF 06/11/22
== END 2023-07-23 10:11 | disposition home or self-care (01) ==
PROVIDERS: Emergency Provider Family Medicine; PCP Family Medicine
DX: R10.30 Lower abdominal pain, unspecified (principal)
CPT/HCPCS: 36415; 80048; 80076; 81001; 83690; 85025; 86140; 87086; 99283; 99284

== ENCOUNTER 2023-08-13 11:50 | Outpatient (CLI) | payer BC, SELFPAY ==
--- OUTSIDE RECORDS SUMMARY | 2023-08-13 11:53 | XMS_ITS | Clinical Summary ---
Author Name Unknown Organization [email or web address] [facility] Address [place], [place] [address] Care Team Providers Care Director Of Informatics Name Role Phone Racheal Saldana MD Unavailable [facility] Unavailable Lawson Bal MD Primary Care Provider [...] TAKE ONE-HALF TABLET EVERY DAY DIRECTED BY [facility] 15 Tablet 12/07/2022 Active losartan (COZAAR) 50 [...] Due for cardiology follow up. Please call [phone] to schedule. 90 Tablet 06/16/2023 4 Discontinue d(Reorder (E-cancel not sent)) Active Problems Problem Noted Date Diagnosed Date Primary cardiomyopathy 04/04/2021 Cardiomyopathy 05/12/2019 Allergic rhinitis, cause unspecified 08/10/2007 Screening for lipoid disorders 08/10/2007 Overview: 02-22-2006 Total-214 LDL-136 HDL-45 Trig-163 Encounters Date Type Department Care Team Description 07/27/2023 1:30 PM CDT Office Visit [address] [place] [address] Cortes Schumacher MD Follow Up (6 month F/U, echo done 07/10. pt states feeling good, no recent or current cardiac symptoms. Feels heart is doing really well, no SOB or dizziness which is new for him. Questions about carvedilol) 07/27/2023 Telephone [facility] [address] [facility] [address] [place] [phone] Cortes Schumacher MD Medication Management (GLP-1 mcgee check ) 07/27/2023 Travel 07/11/2023 12:57 PM CDT - 07/11/2023 11:59 PM CDT Hospital Encounter [facility] [address] [facility] [place] [address] Laurita Wakefield CNS Primary cardiomyopathy (HC) 07/11/2023 Travel 06/16/[address] [facility] [place] [address] [facility] [address] [place] [phone] Cassidy Leonardo NP Refill Request (Rosuvastatin) from Last 3 Months Immunizations Name Administration Dates Next Due Td (Age >=7 Years) 04/26/1999 Family History Medical History Relation Name Comments Unknown Father UT age 40 Other Maternal Uncle Kidney Failur e Thyroid Disease Mother Diabetes Paternal Aunt 1 Other Paternal Aunt 2 UT Allergies Sister 2 Relation Name Status Comments [...] age 45-75 02/22/2011 02/22/2006 (Completed outside of [facility]) COVID-19 vaccine series (2 - 2022- season) [...] CDT Narrative 07/11/2023 6:51 PM CDT ECHOCARDIOGRAM HARVINDER LLANES ? Accession#: ?? [id number] : ?1960 62 years Study Date: ?? 07/11/2023 12:07:01 PM Gender: M ?BP: ? 127/77 mmHg Height: 180.34 cm ?BSA: ?2.46 m? ? ? Weight: 130.64 kg ?Tech: ? GNM ? Referring MD: LAURITA WAKEFIELD Site: ? [facility] Reading Location: [facility] Patient Location: Outpatient. Procedure: 2D, Color Doppler [...] . This study was interpreted by an [facility] accredited facility. ??Final ?? Procedure Note Delio Maldonado MD - 07/11/2023 ECHOCARDIOGRAM HARVINDER LLANES : 1960 62 years Study Date: 07/11/2023 12:07:01 PM Gender: M BP: 127/77 mmHg Height: 180.34 cm BSA: 2.46 m? ? ? Weight: 130.64 kg Tech: [facility] Referring MD: LAURITA WAKEFIELD Site: [facility] Reading Location: [facility] Patient Location: Outpatient. Procedure: 2D, Color Doppler [...] . This study was interpreted by an [facility] accredited facility. Final Laurita Wakefield [employer]PA[employer] CONSULTANT ECHO ORD from Last 3 Months Advance Directives * Full Code (Latest Code Status on File) Date Activated Date Inactivated Comments 12/05/2018 11:59 AM 12/05/2018 3:12 PM Care Teams Director Of Informatics Relationship Specialty Start Date End Date Lawson Bal MD [address] [place] [address] PCP - General Family Practice 06/02/23 Racheal Saldana MD [address] [place] [address] 12/30/10 [facility] [place] [address] [address] Cardiology - CHF 06/11/22
--- NOTE | 2023-08-13 13:03 | W.ANESCHARGE ---
Anesthesia Charges Start Date/Time Anesthesia Start Date: 08/13/23 Anesthesia Start Time: 12:45 Stop Date/Time Anesthesia Stop Date: 08/13/23 Anesthesia Stop Time: 13:26
--- NOTE | 2023-08-13 13:29 | W.ANESCHARGE ---
Anesthesia Charges Start Date/Time Anesthesia Start Date: 08/13/23 Anesthesia Start Time: 12:45 Stop Date/Time Anesthesia Stop Date: 08/13/23 Anesthesia Stop Time: 13:26
== END 2023-08-13 11:51 | disposition home or self-care (01) ==
LOC: OP CLINIC 11:51
PROVIDERS: PCP Family Medicine; Visit Provider Internal Medicine
DX: Z12.11 Encounter for screening for malignant neoplasm of colon (principal); K63.5 Polyp of colon; D50.0 Iron deficiency anemia secondary to blood loss (chronic)
CPT/HCPCS: 00731; 00813; 43239; 45385; 88305; J2704

== ENCOUNTER 2023-08-19 19:53 | Emergency (ER) | payer BC, SELFPAY ==
[2023-08-19 19:55] VITALS: BP 145/84; PULSE 100; RESP 16; TEMP 36.4; O2SAT 99; BMI 38.1
[2023-08-19 20:14] LABS: Appearance Urine Clear (Clear); Bilirubin Urine Negative (Negative); Blood Urine Negative (Negative); Color Urine Light yellow (Yellow); Glucose Urine Negative (Negative); Ketones Urine Negative (Negative); Leukocyte Esterase Urine Negative (Negative); Nitrite Urine Negative (Negative); Protein Urine Negative (Negative); Specific Gravity Urine <= 1.005 (1.000-1.030); Urobilinogen Urine 0.2 (0.2-1.0); pH Urine 6.5 (5.0-8.5)
[2023-08-19 20:33] LABS: RBC Urine 0-2 (0-2); WBC Urine 0-2 (0-5)
--- NOTE | 2023-08-19 20:48 | CT_ITS ---
Patient: PATIENCE BHAT Facility:?[facility] Patient ID:?[id number] Site Patient ID:?[id number] Site :?1960 Study:?CT-Abdomen/Pelvis W/ 134CC ISOVUE 370-08/19/2023 9:22:40 PM Ordering Physician:KENNY Final Report: INDICATION: Abdominal pain. Umbilical hernia. Periumbilical pain. TECHNIQUE: CT abdomen and pelvis acquired with 134 cc Isovue 370 IV contrast. COMPARISON: None. FINDINGS: Lower chest: Small hiatal hernia. Liver: Unremarkable. Normal in size and attenuation. No suspicious masses. Gallbladder and bile ducts: Cholecystectomy. Pancreas: Unremarkable. No mass or inflammation. Spleen: A 4 cm simple appearing cyst is in the anterior margin of the spleen which is otherwise unremarkable. Adrenal glands: Unremarkable. No nodules. Kidneys: Few tiny nonobstructive left renal stones. No hydronephrosis. Otherwise unremarkable. GI tract: Unremarkable. Normal in caliber. No sign of mass or inflammation. No sign of appendicitis. Vasculature: Abdominal aorta is normal in caliber. Mesenteric arteries are patent. Lymph nodes: No lymphadenopathy. Peritoneum/Abdominal Wall: Small fat containing umbilical hernia. Smaller ventral hernia immediately superior to the umbilicus contains fat with inflammatory changes. No intra-abdominal fluid collection or free air. Pelvis: Unremarkable. Bones: No suspicious bone lesions. Degenerative disc spondylosis at L5-S1. IMPRESSION: 1. Small supraumbilical midline ventral hernia containing fat with inflammatory changes. This likely accounts for the periumbilical pain. 2. No other acute or significant abnormalities present. Please note that all CT scans at this facility use dose modulation, iterative reconstruction, and/or weight-based dosing when appropriate to reduce radiation dose to as low as reasonably achievable. Dictated by Howard Macdonald MD @ 08/19/2023 10:29:28 PM Signed by:?Howard Macdonald MD @08/19/2023 10:29:28 PM (Electronic Signature)
--- OUTSIDE RECORDS SUMMARY | 2023-08-19 20:57 | XMS_ITS | Clinical Summary ---
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 pt states feeling good, no recent or current cardiac symptoms. Feels heart is doing really well, no SOB or dizziness which is new for him. Questions about carvedilol) 07/27/2023 Telephone [facility] [address] [facility] [address] [place] [phone] Cortes Schumacher MD Medication Management (GLP-1 mcgee check ) 07/27/2023 Travel 07/11/2023 12:57 PM CDT - 07/11/2023 11:59 PM CDT Hospital Encounter [facility] [address] [facility] [place] [address] Laurita Wakefield CNS Primary cardiomyopathy (HC) 07/11/2023 Travel 06/16/2023 Refill [facility] [address] [facility] [address] [place] [phone] Cassidy Leonardo NP Refill Request (Rosuvastatin) from [...] age 45-75 02/22/2011 02/22/2006 (Completed outside of [employer]) COVID-19 vaccine series (2 - 2022- season) 2022 2020 Influenza for age 50-64 12/26/2023 BMI (ht and wt on same day) for age 18+ 07/26/2024 07/27/2023, 08/06/2022, 07/21/2019, Additional history exists Procedures Procedure Name Priority Date/Time Associated Diagnosis Comments LAB TRACKING EVENT Routine 08/13/2023 1: 15 PM CDT LAB TRACKING EVENT Routine 08/13/2023 12 :52 PM CDT PATH TISSUE EXAM Routine 08/13/2023 12:5 2 PM CDT ECHO TTE COMPLETE WO CONTRAST Routine 07/11/2023 1:39 PM CDT Primary cardiomyopathy (HC) from Last 3 Months Results * LAB TRACKING EVENT (08/13/2023 1:15 PM CDT) Only the most recent of2 resultswithin the time period is included. Other (Other) Client Collect / Unknown 08/13/2023 1:15 PM CDT 08/13/2023 8:57 PM CDT Kiran Farr MD LAB BILL ONLY [facility] [address] [place] [address], * PATH TISSUE EXAM (08/13/2023 12:52 PM CDT) Case Report Pathology Report ?Case: [id number] ? Authorizing Provider: ??Kiran Farr MD ?Collected: ? 08/13/2023 1252 ? Ordering Location: ? [facility] ?Received: ?08/13/20237 ? Pathologist: ? Rajan Meade MD ? Specimens: ?? A) - Duodenal ? B) - Stomach Biopsy ? C) - Colon Polyp ? 08/16/2023 10:18 AM [facility] Final Diagnosis A) DUODENUM, BIOPSY: 1. Normal duodenal mucosa 2. Negative for celiac disease and other enteropathy A) STOMACH, BIOPSY: 1. Gastric body mucosa with no diagnostic abnormalities 2. Negative for Helicobacter A) COLON, SIGMOID, POLYPECTOMY: 1. Tubular adenoma 2. Negative for high grade dysplasia 3. Per the colonoscopy report: ?? a. Polyp size: 3 mm ?? b. Resection: Complete ?? c. Retrieval: Complete 08/16/2023 10:18 AM [facility] Clinical Information Iron deficiency anemia. Upper GI endoscopy showed no mucosal abnormalities. Colonoscopy showed a single polyp. 08/16/2023 10:18 AM [facility] Gross Description A) Received in formalin is a mitchell mucosal fragment measuring 7 mm in greatest dimension, which is entirely submitted in one cassette. It is labeled with the patient's name and designated duodenum. B) Received in formalin are 3 mitchell mucosal fragments averaging 5 mm in greatest dimension, which are entirely submitted in one cassette. It is labeled with the patient's name and designated random stomach. C) Received in formalin are 3 mitchell mucosal fragments ranging from 2 mm to 7 mm in greatest dimension, which are entirely submitted in one cassette. It is labeled with the patient's name and designated colon-sigmoid polyp. Lurdes Chang 08/13/2023 9:20 PM 08/16/2023 10:18 AM [facility] Microscopic Description The final diagnosis is based on microscopic examination of appropriate sections of all specimens. 08/16/2023 10:18 AM CDT [facility] Additional Information Interpreted at [facility] - [address], [place] [address] 08/16/2023 10:18 AM CDT [facility] Other (Duodenal) 08/13/2023 12:52 PM CDT 08/13/2023 9:17 PM CDT Specimen (specimen) (Stomach Biopsy) 08/13/2023 12:52 PM CDT 08/13/2023 9:17 PM CDT Specimen (specimen) (Colon Polyp) 08/13/2023 1:15 PM CDT 08/13/2023 9:17 PM CDT Kiran Farr MD PATHOLOGY/CYTOLOGY [facility] [address] [place] [address], * ECHO TTE COMPLETE WO CONTRAST (07/11/2023 1:39 PM CDT) AORTIC VALVE MEAN PG 3 mmHg EJECTION FRACTION 43 % LVEDD 6.7 cm EJECTION FRACTION 40 - 45% Anatomical Region Laterality Modality Ultrasound 07/11/2023 12:0 7 PM CDT Narrative 07/11/2023 6:51 PM CDT ECHOCARDIOGRAM PATIENCE LLANES ? Accession#: ?? [id number] : ?1960 62 years Study Date: ?? 07/11/2023 12:07:01 PM Gender: M ?BP: ? 127/77 mmHg Height: 180.34 cm ?BSA: ?2.46 m? ? ? Weight: 130.64 kg ?Tech: ? GNM ? Referring : LAURITA WAKEFIELD Site: ? [facility] Reading Location: [facility] Patient Location: Outpatient. Procedure: 2D, [...] . This study was interpreted by an [facility] accredited facility. ??Final ?? Procedure Note Delio Maldonado MD - 07/11/2023 ECHOCARDIOGRAM PATIENCE LLANES : 1960 62 years Study Date: 07/11/2023 12:07:01 PM Gender: M BP: 127/77 mmHg Height: 180.34 cm BSA: 2.46 m? ? ? Weight: 130.64 kg Tech: KENAN Referring MD: LAURITA WAKEFIELD Site: [facility] Reading Location: [facility] Patient Location: Outpatient. Procedure: 2D, [...] . This study was interpreted by an [facility] accredited facility. Final Laurita Wakefield [employer] ECHO ORD from Last 3 Months Advance Directives * Full Code (Latest Code Status on File) Date Activated Date Inactivated Comments 12/05/2018 11:59 AM 12/05/2018 3:12 PM Care Teams Slide Developer Relationship Specialty Start Date End Date Lawson Bal MD [address] [place] [address] PCP - General Family Practice 06/02/23 Racheal Saldana MD [address] [place] [address] 12/30/10 [facility] [place] [address] [address] Cardiology - CHF 06/11/22
[2023-08-19 21:03] LABS: Basophils Absolute Auto 0.01 K/uL (0.00-0.30); Basophils Percent Auto 0.2 % (0.0-3.0); Eosinophils Percent Auto 3.7 % (0.0-7.0); Hematocrit 38.8 % (37.0-53.0); Hemoglobin* 12.6 gm/dL (13.5-17.5); Lymphocytes Absolute Auto 1.25 K/uL (0.90-2.90); Lymphocytes Percent Auto 22.9 % (20-44); Mean Corpuscular HGB Conc 33 gm/dL (32-36); Mean Corpuscular Hemoglobin 29 pg (26-34); Mean Corpuscular Volume 90 fL (80-100); Monocytes Percent Auto 9.5 % (0.0-11.0); Neutrophils Absolute Auto 3.49 K/uL (1.7-7.0); Neutrophils Percent Auto 63.7 % (42.0-72.0); Platelet Count* 174 K/uL (140-440); RDW Coefficient of Variation % 12.9 % (11.5-15.5); White Blood Count* 5.47 K/uL (4.50-11.00)
[2023-08-19 21:16] LABS: Slide Review Reflex No
[2023-08-19 21:23] LABS: Albumin* 3.9 g/dL (3.3-5.0); Chloride* 105 mmol/L (96-114)
[2023-08-19 21:24] LABS: Potassium* 3.5 mmol/L (3.6-5.1); Sodium* 138 mmol/L (135-149)
[2023-08-19 21:26] LABS: Amylase* 91 U/L (18-89); Anion Gap 6 mEq/L (7-15); Aspartate Amino Transferase* 22 U/L (12-35); Bilirubin Direct* 0.1 mg/dL (0.0-0.5); Bilirubin Total* 0.4 mg/dL (0.1-1.5); Blood Urea Nitrogen* 8 mg/dL (7-30); Calcium* 8.4 mg/dL (8.4-10.6); Carbon Dioxide* 27 mmol/L (20-32); Creatinine* 0.8 mg/dL (0.5-1.5); Est. Creatinine Clearance* 79.48; Estimated Glomerular Filt Rate 99 ml/min; Glucose* 89 mg/dL (60-115)
[2023-08-19 21:27] LABS: Alanine Aminotransferase* 15 U/L (4-50); Alkaline Phosphatase* 74 U/L (40-150); Lipase* 76 U/L (23-300)
--- NOTE | 2023-08-19 21:42 | ED.ABDPAIN ---
HPI - Abdominal Pain General Date Seen: 08/19/23 Chief Complaint: Abdominal Pain Stated Complaint: stomach pain Time Seen by Provider: 08/19/23 20:39 Source: patient Mode of arrival: ambulatory Limitations: no limitations History of Present Illness HPI narrative: Patient is a very nice gentleman who presents here with a 5 week history of periumbilical abdominal pain. He was seen and evaluated in ER, at that point his laboratory tests were normal, and sent home he followed up and had a colonoscopy and endoscopy which by his report did not show any acute abnormalities. His abdominal pain is continuing to go on, and today was particularly bad is usually relieved by some aspirin, but today he found that the pain just continued without relief, which brought him into the ER the pain is worse when he sitting up or standing, better is when he is lying down. Describes around his center part of his abdomen, is not affected his eating, in fact he thinks he may have gained a few lb, no nausea no vomiting no history of any change in his bowel habits. Is no personal history of malignancy, but he has had his gallbladder out previously. Denies blood in his stools, nonsmoker nondrinker of alcohol, works in a [employer] MD elicited complaint: abdominal pain Pain Consistency: intermittent Location: periumbilical Severity: moderate Quality: cramping and stabbing Radiation: none Migration to: no migration Relieving factors: rest Associated symptoms: denies other symptoms Treatments prior to arrival: NSAIDs Related Data Home Medications Medication Instructions Recorded Confirmed aspirin 81 mg tablet,delayed 81 mg PO QDAY 05/01/22 07/28/23 release rosuvastatin 10 mg tablet 10 mg PO QPM 10/26/22 07/28/23 spironolactone 25 mg tablet 12.5 mg PO QDAY 06/09/23 07/28/23 carvedilol 6.25 mg tablet 3.125 mg PO BID 07/26/23 07/28/23 losartan 50 mg tablet 50 mg PO BID 07/26/23 07/28/23 omeprazole 20 mg capsule,delayed 20 mg PO QDAY 07/26/23 07/28/23 release Previous Rx's Medication Instructions Recorded peg 3350-electrolytes 236 4,000 ml PO DIRECTED #4,000 mL 07/26/23 gram-22.74 gram-6.74 gram-5.86 gram solution (Rey) Allergies Allergy/AdvReac Type Severity Reaction Status Date / Time cyclobenzaprine Allergy Intermediate Headache Verified 08/19/23 21:29 esomeprazole Allergy Unknown Abdominal Verified 08/19/23 21:29 Pain amoxicillin AdvReac Severe Verified 08/19/23 21:29 Penicillins AdvReac Verified 08/19/23 21:29 Sulfa Antibiotics Allergy Unknown itching Uncoded 08/19/23 21:29 and swelling in hands and feet Review of Systems Status of ROS Reports: 10 or more systems reviewed and unremarkable except as noted in History and below PFSH [facility] Medical History COVID-19 ?U07.1 - COVID-19 (ICD-10) History of tinnitus (12/16/09) ?Z86.69 - Personal history of other diseases of the nervous system and sense organs (ICD-10) Surgical History Status post nasal polypectomy ?Z98.890 - Other specified postprocedural states (ICD-10) Status post cholecystectomy ?Z90.49 - Acquired absence of other specified parts of digestive tract (ICD-10) Social History Smoking Status: Never smoker Do you use any of these nicotine containing products: None Second hand tobacco smoke exposure: No How often do you have a drink containing alcohol: never How often do you have six or more drinks on one occasion: Never AUDIT-C Alcohol total score: 0 Non-prescribed substance use: denies use Little interest or pleasure in doing things: not at all Feeling down, depressed, or hopeless: several days service: Yes Exam Narrative: Exam Narrative: On examination in room 6 he is in no apparent distress he is pleasant and alert, reading a book, pupils equal round reactive to light there is no scleral icterus redness TMs are normal oropharynx is normal there is no adenopathy anterior posterior chains, neck is supple, chest is good air entry bilaterally with no wheezing crackles noted, heart sounds no clicks murmurs or gallops, abdomen is soft, there is no guarding, although he is somewhat tender on the edgar Q umbilical region, he clearly has the bulge, an easily reducible tender edgar umbilical hernia, which I am able to fully reduce. No lower hernias noted, normal male genitalia skin is otherwise normal neurologically intact in the upper lower extremities moving all extremities well with no neurologic issues. Const: Vital Signs, click to edit/add: Vital Signs - 24 hr 08/19/23 19:55 Temperature 97.6 F Pulse Rate [Pulse Oximeter] 100 Respiratory Rate 16 Blood Pressure [Ri ght Upper Arm] 145/84 H Pulse Oximetry 99 Oxygen Delivery Me thod Room Air Documenting provider has reviewed patient's vital signs: yes Course Course ED Course: I discussed with him that there is no significant intra-abdominal issue. I do see the evidence of the small hernia, which likely is just enlarging giving him the pain, we should send him home and have him follow-up with General surgery, although I did go over him signs and symptoms and how to reduce his hernia, which I did do here as initially was out, and I pushed it back in. He felt very well here, says his pain at totally gone away with this maneuver. We talked about limiting his lifting, again I gave him a work note. Vital Signs Vital signs: Initial Vital Signs Temperature 97.6 F 08/19/23 19:55 Temperature Source Temporal Artery Scan 08/19/23 19:55 Pulse Rate 100 08/19/23 19:55 Respiratory Rate 16 08/19/23 19:55 Blood Pressure 145/84 H 08/19/23 19:55 Blood Pressure Mean 104 08/19/23 19:55 Blood Pressure Position Sitting 08/19/23 19:55 Pulse Oximetry 99 08/19/23 19:55 Oxygen Delivery Method Room Air 08/19/23 19:55 Vital Signs Temperature 97.6 F 08/19/23 19:55 Pulse Rate 100 08/19/23 19:55 Respiratory Rate 16 08/19/23 19:55 Blood Pressure 145/84 H 08/19/23 19:55 Pulse Oximetry 99 08/19/23 19:55 Oxygen Delivery Method Room Air 08/19/23 19:55 Temperature 97.6 F 08/19/23 19:55 Pulse Rate 100 08/19/23 19:55 Respiratory Rate 16 08/19/23 19:55 Blood Pressure 145/84 H 08/19/23 19:55 Pulse Oximetry 99 08/19/23 19:55 Oxygen Delivery Method Room Air 08/19/23 19:55 MDM - Abdominal Pain MDM Narrative Medical decision making narrative: During this evaluation of this patient I considered multiple differential diagnosis is which included the life-threatening such as appendicitis, aortic aneurysm, mesenteric ischemia, bowel perforation, volvulus, and bowel obstruction. Other differential diagnosis is include but are not limited to cholecystitis, pancreatitis, hepatitis, gastritis, GERD, diverticulitis, peptic ulcer disease, pyelonephritis/UTI, renal colic/stone, testicular torsion as well as other acute scrotal processes, inflammatory bowel disease, as well as other etiologies Medical Records Attestation: I reviewed the patient's medical records. Lab Data Attestation: I reviewed the patient's lab results. Labs: Lab Results 08/19/23 08/19/23 Range/Units 20:01 20:57 WBC 5.47 (4.50-11.00) K/uL RBC 4.30 (4.30-5.90) m/uL Hgb 12.6 L (13.5-17.5) gm/dL Hct 38.8 (37.0-53.0) % MCV 90 (80-100) fL MCH 29 (26-34) pg MCHC 33 (32-36) gm/dL RDW Coeff of Bhaskar 12.9 (11.5-15.5) % Plt Count 174 (140-440) K/uL Neut % (Auto) 63.7 (42.0-72.0) % Lymph % (Auto) 22.9 (20-44) % Angelina % (Auto) 9.5 (0.0-11.0) % Eos % (Auto) 3.7 (0.0-7.0) % Baso % (Auto) 0.2 (0.0-3.0) % Neut # (Auto) 3.49 (1.7-7.0) K/uL Lymph # (Auto) 1.25 (0.90-2.90) K/uL Angelina # (Auto) 0.50 (0.00-0.90) K/UL Eos # (Auto) 0.20 (0.00-0.50) K/uL Baso # (Auto) 0.01 (0.00-0.30) K/uL Abs Immat Gran (auto) 0.00 (0.00-0.30) K/uL Imm/Tot Granulo (auto) 0.0 % Sodium 138 (135-149) mmol/L Potassium 3.5 L (3.6-5.1) mmol/L Chloride 105 (96-114) mmol/L Carbon Dioxide 27 (20-32) mmol/L Anion Gap 6 L (7-15) mEq/L BUN 8 (7-30) mg/dL Creatinine 0.8 (0.5-1.5) mg/dL Estimated Creat Clear 79.48 Estimated GFR 99 ml/min Glucose 89 (60-115) mg/dL Calcium 8.4 (8.4-10.6) mg/dL Total Bilirubin 0.4 (0.1-1.5) mg/dL Direct Bilirubin 0.1 (0.0-0.5) mg/dL AST 22 (12-35) U/L ALT 15 (4-50) U/L Alkaline Phosphatase 74 (40-150) U/L Total Protein 7.0 (6.0-8.3) g/dL Albumin 3.9 (3.3-5.0) g/dL Amylase 91 H (18-89) U/L Lipase 76 (23-300) U/L Urine Color Light yellow (Yellow) Urine Appearance Clear (Clear) Urine pH 6.5 (5.0-8.5) Ur Specific [place] <= 1.005 (1.000-1.030) Urine Protein Negative (Negative) Urine Glucose (UA) Negative (Negative) Urine Ketones Negative (Negative) Urine Blood Negative (Negative) Urine Nitrite Negative (Negative) Urine Bilirubin Negative (Negative) Urine Urobilinogen 0.2 (0.2-1.0) Ur Leukocyte Esterase Negative (Negative) Urine RBC 0-2 (0-2) Urine WBC 0-2 (0-5) Ur Squamous Epith Cells None (None-Few) Urine Bacteria None (None) Imaging Data CT scan - abdomen: Attestation: I have reviewed the pertinent imaging results. My impression: Small ventral hernia, with inflammatory changes. Radiologist's impression: Patient: PATIENCE BHAT Facility:?[facility] Patient ID:?[id number] Site Patient ID:?[id number] Site :?1960 Study:?CT-Abdomen/Pelvis W/ 134CC ISOVUE 370-08/19/2023 9:22:40 PM Ordering Physician:KENNY Final Report: INDICATION: Abdominal pain. Umbilical hernia. Periumbilical pain. TECHNIQUE: CT abdomen and pelvis acquired with 134 cc Isovue 370 IV contrast. COMPARISON: None. FINDINGS: Lower chest: Small hiatal hernia. Liver: Unremarkable. Normal in size and attenuation. No suspicious masses. Gallbladder and bile ducts: Cholecystectomy. Pancreas: Unremarkable. No mass or inflammation. Spleen: A 4 cm simple appearing cyst is in the anterior margin of the spleen which is otherwise unremarkable. Adrenal glands: Unremarkable. No nodules. Kidneys: Few tiny nonobstructive left renal stones. No hydronephrosis. Otherwise unremarkable. GI tract: Unremarkable. Normal in caliber. No sign of mass or inflammation. No sign of appendicitis. Vasculature: Abdominal aorta is normal in caliber. Mesenteric arteries are patent. Lymph nodes: No lymphadenopathy. Peritoneum/Abdominal Wall: Small fat containing umbilical hernia. Smaller ventral hernia immediately superior to the umbilicus contains fat with inflammatory changes. No intra-abdominal fluid collection or free air. Pelvis: Unremarkable. Bones: No suspicious bone lesions. Degenerative disc spondylosis at L5-S1. IMPRESSION: 1. Small supraumbilical midline ventral hernia containing fat with inflammatory changes. This likely accounts for the periumbilical pain. 2. No other acute or significant abnormalities present. Please note that all CT scans at this facility use dose modulation, iterative reconstruction, and/or weight-based dosing when appropriate to reduce radiation dose to as low as reasonably achievable. Dictated by Howard Macdonald MD @ 08/19/2023 10:29:28 PM (Electronic Signature) Discharge Plan Discharge Clinical Impression: Incarcerated umbilical hernia Patient Disposition: Home w/ Parent or Adult Condition: Stable Instructions: Open Herniorrhaphy (DC), Umbilical Hernia (ED), Umbilical Hernia Repair (DC) Additional Instructions: The hernia was easily reduced by myself, explained to you what this is if you find the pain increases you start nausea vomiting, or have inability to reduce her hernia then you to come back to the emergency room, I think he should see the surgeon, and get this permanently fix, I have given you a number of a few surgeons here, they all are excellent. No heavy lifting, try not to strain with her bowel movements, are all good suggestions Activity Level: Light activity Discharge Diet: Regular Prescriptions: No Action aspirin 81 mg tablet,delayed release (DR/EC) 81 mg PO QDAY spironolactone 25 mg tablet 12.5 mg PO QDAY carvedilol 6.25 mg tablet 3.125 mg PO BID Patient Comments: Patient takes half a tab losartan 50 mg tablet 50 mg PO BID omeprazole 20 mg capsule,delayed release(DR/EC) 20 mg PO QDAY peg 3350-electrolytes [Golytely] 236-22.74-6.74 -5.86 gram recon soln 4,000 ml PO DIRECTED Qty: 4000 0RF Rx Instructions: 1 day prior to scopes, between 4 and 6 p.m., drink 8 oz glass every 15 minutes until half a gallon is gone. 6 hours prior to procedure, drink 8 oz glass every 15 minutes until second half gallon is gone. rosuvastatin 10 mg tablet 10 mg PO QPM Follow Up/Referrals: Toshia Tanner MD [Staff Physician] - Carmel Husain MD [Staff Physician] - Eleni Lopes MD [Staff Physician] - Lawson Bal MD [Primary Care Provider] - Stand Alone Forms: [employer] Info Instructions
== END 2023-08-19 23:15 | disposition home or self-care (01) ==
PROVIDERS: Emergency Medicine; Emergency Provider Family Medicine; PCP Family Medicine
DX: K42.0 Umbilical hernia with obstruction, without gangrene (principal)
CPT/HCPCS: 36415; 74177; 80048; 80076; 81001; 82150; 83690; 85025; 99283; 99284; Q9967

== ENCOUNTER 2023-09-06 08:52 | Day surgery (SDC) | payer BC, SELFPAY ==
[2023-09-06] VITALS (15 sets, daily range): BP systolic 120–150; BP diastolic 68–90; PULSE 54–75; RESP 14–18; TEMP 35.8–37.1; O2SAT 95–99; BMI 38.6
--- OUTSIDE RECORDS SUMMARY | 2023-09-06 08:55 | XMS_ITS | Clinical Summary ---
Author Name Unknown Organization [facility] Address [place], [place] [address] Care Team Providers Care Clamp Truck Driver Name Role Phone Racheal Saldana MD Unavailable [facility] Unavailable Lawson Bal MD Primary Care Provider [phone] Allergies Active Allergy Reactions Criticality Noted Date [...] 0 01/30/2013 Active acetaminophen (TYLENOL) 325 mg tabletIndications: pain Take 650 mg by mouth every 4 hours if needed. Max acetaminophen dose: 4000mg in 24 hrs. Indications: Pain Active spironolactone (ALDACTONE) 25 mg tabletIndications: Heart failure, unspecified HF chronicity, unspecified heart failure type (HC) Take 0.5 Tablets (12.5 mg) by mouth once daily. 45 Tablet 3 11/26/2022 Active furosemide (LASIX) 20 mg tabletIndications: SOB (shortness of breath) TAKE ONE-HALF TABLET EVERY DAY DIRECTED BY [facility] 15 Tablet 12/07/2022 Active losartan (COZAAR) 50 mg tabletIndications: Chronic HFrEF (heart failure with reduced ejection fraction) (HC) Take 1 Tablet (50 mg) by mouth two times daily. 180 Tablet 3 01/11/2023 Active rosuvastatin (CRESTOR) 10 mg tabletIndications: Dyslipidemia Take 1 Tablet (10 mg) by mouth once daily. Further refills at appointment on July 27, 2023 90 Tablet 07/19/2023 Active carvediloL (COREG) 3.125 mg tabletIndications: Heart failure, unspecified HF chronicity, unspecified heart failure type (HC) Take 1 Tablet (3.125 mg) by mouth two times daily with meals. 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 Cardiomyopathy 05/12/2019 Allergic rhinitis, cause unspecified 08/10/2007 Screening for lipoid disorders 08/10/2007 Overview: 02-22-2006 Total-214 LDL-136 HDL-45 Trig-163 Encounters Date Type Department Care Team Description 08/13/2023 Lab Requisition [facility] [phone] Kiran Farr MD 08/13/2023 Lab Requisition [facility] [phone] Kiran Farr MD 07/27/2023 1:30 PM CDT Office Visit [facility] [address] [facility] [address] [place] [phone] Cortes Schumacher MD Follow Up (6 month F/U, echo done 07/10. pt states feeling good, no recent or current cardiac symptoms. Feels heart is doing really well, no SOB or dizziness which is new for him. Questions about carvedilol) 07/27/2023 Telephone [facility] [address] [facility] [address] [place] [phone] Cortes Schumacher MD Medication Management (GLP-1 mcgee check ) 07/27/2023 Travel 07/11/2023 12:57 PM CDT - 07/11/2023 11:59 PM CDT Hospital Encounter [facility] [address] [facility] [place] [address] Fernanda Wakefield CNS Primary cardiomyopathy (HC) 07/11/2023 Travel 06/16/2023 Refill [facility] [address] [facility] [address] [place] [phone] Cassidy Leonardo NP Refill Request (Rosuvastatin) from Last 3 Months Immunizations Name Administration Dates Next Due Td (Age >=7 Years) 04/26/1999 Family History Medical History Relation Name Comments Unknown Father LA age 40 Other Maternal Uncle Kidney Failur e Thyroid Disease Mother Diabetes Paternal Aunt 1 Other Paternal Aunt 2 [place] Allergies Sister 2 Relation Name Status Comments [...] age 45-75 02/22/2011 02/22/2006 ([facility] COVID-19 vaccine series ( - 2022- season) 2022 2020 Influenza for [...] CDT Kiran Farr MD [facility] [address] [place] [address], * PATH TISSUE EXAM (08/13/2023 12:52 PM CDT) Case Report Pathology Report ?Case: [id number] ? Authorizing Provider: ??Kiran Farr MD ?Collected: ? 08/13/2023 1252 ? Ordering Location: ? [facility] ?Received: ?08/13/20232116 ? Pathologist: ? Deshaun, Rajan, ? Specimens: ?? A) - Duodenal ? B) - Stomach Biopsy ? C) - Colon Polyp ? 08/25/2023 5:09 PM CDT [facility] [employer] LABORATORY-C ENTRAL LABORATORY Amendment 08/25/2023 - Report updated to correct part designation of the gastric and sigmoid colon biopsies (changed to 'B' and 'C), see final diagnosis 08/25/2023 5:09 PM T [facility]- ENTR[facility] Final Diagnosis A) DUODENUM, BIOPSY: 1. Normal duodenal mucosa 2. Negative for celiac disease and other enteropathy B) STOMACH, BIOPSY: 1. Gastric body mucosa with no diagnostic abnormalities 2. Negative for Helicobacter C) COLON, SIGMOID, POLYPECTOMY: 1. Tubular adenoma 2. Negative for high grade dysplasia 3. Per the colonoscopy report: ?? a. Polyp size: 3 mm ?? b. Resection: Complete ?? c. Retrieval: Complete 08/25/2023 5:09 PM T [facility] Amendment electronically signed by Rajan Meade MD on 08/25/2023 at 5:09 PM Clinical Information Iron deficiency anemia. Upper GI endoscopy showed no mucosal abnormalities. Colonoscopy showed a single polyp. 08/25/2023 5:09 PM T [facility] Gross Description A) Received in formalin [...] colon-sigmoid polyp. Lurdes Chang 08/13/2023 9:20 PM 08/25/2023 5:09 PM T [facility] Microscopic Description The final diagnosis is based on microscopic examination of appropriate sections of all specimens. 08/25/2023 5:09 PM T [facility] Additional Information Interpreted at [facility], Central Laboratory - [address] [facility] [address], [place] [address] 08/25/2023 5:09 PM T [facility] Other (Duodenal) 08/13/2023 12:52 PM CDT 08/13/2023 9:17 PM CDT Specimen (specimen) (Stomach Biopsy) 08/13/2023 12:52 PM CDT 08/13/2023 9:17 PM CDT Specimen (specimen) (Colon Polyp) 08/13/2023 1:15 PM CDT 08/13/2023 9:17 PM CDT Kiran Farr MD PATHOLOGY/CYTOLOGY [facility]ORY [address] [place] [id number], * ECHO TTE COMPLETE WO CONTRAST (07/11/2023 1:39 PM CDT) AORTIC VALVE MEAN PG 3 mmHg EJECTION FRACTION 43 % LVEDD 6.7 cm EJECTION FRACTION 40 - 45% Anatomical Region Laterality Modality Ultrasound 07/11/2023 12:0 7 PM CDT Narrative 07/11/2023 6:51 PM CDT ECHOCARDIOGRAM PATIENCE LLANES ? Accession#: ?? [id number] : ?1960 62 years Study Date: ?? 07/11/2023 12:07:01 PM Gender: M ?BP: ? 127/77 mmHg Height: 180.34 cm ?BSA: ?2.46 m? ? ? Weight: 130.64 kg ?Tech: ? GNM ? Referring MD: FERNANDA WAKEFIELD Site: ? [facility] Reading Location: [facility] Patient Location: Outpatient. Procedure: 2D, Color Doppler [...] . This study was interpreted by an [facility] accredited facility. ??Final ?? Procedure Note Dleio Maldonado MD - 07/11/2023 ECHOCARDIOGRAM PATIENCE LLANES : 1960 62 years Study Date: 07/11/2023 12:07:01 PM Gender: M BP: 127/77 mmHg Height: 180.34 cm BSA: 2.46 m? ? ? Weight: 130.64 kg Tech: [facility] Referring MD: FERNANDA WAKEFIELD Site: [facility] Reading Location: [facility] Patient Location: Outpatient. Procedure: 2D, Color Doppler [...] . This study was interpreted by an [facility] accredited facility. Final Fernanda Bree Wakefield [employer] ECHO ORD from Last 3 Months Advance Directives * Full Code (Latest Code Status on File) Date Activated Date Inactivated Comments 12/05/2018 11:59 AM 12/05/2018 3:12 PM Care Teams Clamp Truck Driver Relationship Specialty Start Date End Date Lawson Bal MD [address] [place] [address] PCP - General Family Practice 06/02/23 Racheal Saldana MD [address] [place] [phone] 12/30/10 [facility] [address] [address] Cardiology - CHF 06/11/22
[2023-09-06] MEDS: SODIUM CHLORIDE 0.9 % (FLUSH) 10 ML SYRINGE IVF (09:10)
[2023-09-06] MEDS: LACTATED RINGERS 1000 ML 1,000 ML 100 ML IV (09:10)
--- NOTE | 2023-09-06 10:30 | W.PM.H&PU ---
History & Physical Update History & Physical Update H&P Reviewed and patient assessed: No changes noted
--- NOTE | 2023-09-06 10:31 | P.GSOP_ITS ---
Operative Note Date of procedure: 09/06/23 Pre-op diagnosis: 1. Symptomatic supraumbilical hernia. 2. Umbilical hernia. Post-op diagnosis: Same Type of Procedure: 1. Open supraumbilical and umbilical hernia repair with mesh. Indications: 62-year-old male presents to clinic for evaluation of supraumbilical bulge. He initially noticed the bulge a few weeks prior to his clinic presentation. The bulge was painful. It was mostly present with standing and physical activity. Patient had upper endoscopy and colonoscopy to evaluate this pain and those were not revealing as a source of his pain. The pain was severe that he presented to the emergency room. He was diagnosed with incarcerated supraumbilical hernia. His hernia was reduced in the emergency room. On clinical exam patient had a well-healed supraumbilical surgical scar from his previous laparoscopic cholecystectomy. Just underneath the scar I was able to palpate a grape sized bulge that was tender to palpation and was reducible. Patient has also had a small umbilical hernia bulge. Given patient's clinical history and his physical exam, surgical repair was recommended. I discussed with the patient that because of his history of CHF and his most recent echo several weeks ago shown ejection fraction of 39%, we would do his surgery under MAC anesthesia. The procedure was discussed in detail. The risks associated procedure including infection, bleeding, hernia recurrence, and injury to intra- abdominal organs were all discussed with the patient, and he agreed to proceed. Procedure Description: After discussing the risks and benefits of the procedure, the patient signed informed consent.? The operative site was marked and the patient was brought to the operating room and placed on the operating table in supine position.? Care was taken to pad the patient's pressure points.?? The patient was then Sedated by anesthesia.?? The operative site was then prepped and draped in the usual sterile fashion.? A time-out was then performed. Local anesthetic was injected at the surgical site 1.5 cm superior to the umbilicus. A well-healed supraumbilical surgical scar was then excised with a scalpel. Dermis was divided with cautery down to the hernia sac. The hernia sac was then mobilized circumferentially from the anterior fascia. The surrounding fascial edges were weak to palpation. The hernia sac was thin and did not contain any intra-abdominal structures. I then proceeded with develop ing preperitoneal space for mesh placement. Peritoneum and hernia sac were entered inadvertently during this dissection and those peritoneal openings were closed with 3-0 Vicryl suture. An umbilical hernia defect was identified and umbilicus was dissected off the fascia with cautery. The umbilical fascial opening was oversewn with 0-0 Vicryl suture. Hemostasis was achieved with cautery. the supraumbilical fascial defect was approximately 2 x 1 cm. When adequate space was developed for mesh placement, medium-sized Ventralex ST mesh was placed into the preperitoneal space. The mesh overlapped the closed umbilical defect. The mesh was secured in place with interrupted 0-0 Nurolon sutures. The anterior fascia was closed over the mesh with a running 2-0 Vicryl suture. Additional local anesthetic was injected at this point. Subcutaneous fat was reapproximated with interrupted 2-0 Vicryl sutures. The dermis was reapproximated with interrupted 3-0 Vicryl sutures. The skin was closed with a running 4-0 Monocryl stitch. Steri-Strips and sterile pressure dressings were placed over the incision. During this procedure patient vomited Bilious clear liquid/gastric fluid and there was a possibility of aspiration. ? The patient was then woken and transported to the recovery area in stable condition. ? The patient tolerated the procedure well. Findings: Umbilical defect was oversewn with Vicryl suture. Supraumbilical fascial defect was repaired with mesh that overlapped umbilical defect in the preperitoneal space. Anesthesia: MAC and local Surgeon: Carmel Husain MD Condition: stable Disposition: same day
[2023-09-06] MEDS: CLINDAMYCIN 900 MG/50 ML-D5W IVPB (10:50)
[2023-09-06] MEDS: BUPIVACAINE 0.25% 30 ML INJECTION (11:00)
--- NOTE | 2023-09-06 12:20 | W.ANESCHARGE ---
Anesthesia Charges Start Date/Time Anesthesia Start Date: 09/06/23 Anesthesia Start Time: 10:37 Stop Date/Time Anesthesia Stop Date: 09/06/23 Anesthesia Stop Time: 12:15
[2023-09-06] MEDS: CALCIUM CARBONATE 500 MG CHEW 1000 MG PO (12:35)
--- NOTE | 2023-09-06 12:55 | SUR.PHASEII ---
Patient transferred from [facility] to Med Surg. VSS. Patient denies any pain. He has tolerated water and some saltine crackers. Patient in stable condition at transfer. Report given to JOSEPH Maddox.
--- NOTE | 2023-09-06 14:01 | XR_ITS ---
Patient: PATIENCE BHAT Facility:?[facility] RIS Patient ID:?[id number] Site Patient ID:?[id number]. Site :?[id number] Study:?XRay-Chest 1 VIEW-09/06/2023 2:54:32 PM Ordering Physician:JACQUES Final Report: INDICATION: Aspiration TECHNIQUE: Chest 1 view COMPARISON: 10/26/2022 FINDINGS: Cardiac silhouette enlarged. Aortic tortuosity. Lungs clear. IMPRESSION: No evidence of aspiration pneumonitis. Dictated by Delio Aparicio MD @ 09/07/2023 1:00:06 PM Signed by:?Delio Aparicio MD @09/07/2023 1:00:06 PM (Electronic Signature)
[2023-09-06] MEDS: OMEPRAZOLE 20 MG CAPSULE DR PO (14:44)
--- NOTE | 2023-09-06 15:29 | PC.NURSE ---
Pt arrived to unit at 1245. Pt alert and oriented. Pt had no complaints of pain. Dressing dry and intact. VSS. Pt SBA.
--- NOTE | 2023-09-06 16:40 | P.IMCN_ITS ---
Date of Consult Patient: [facility] Patient Consult date: 09/06/23 Requesting Physician: General Surgery Primary Care Provider: Lawson Bal MD Consult Narrative Narrative: Harvinder Llanes is a 62 year old male admitted to the hospital for umbilical hernia repair.. Procedure was performed by Dr. Husain. There were no operative complications except he did have an emesis of gastric fluid during the procedure. In recovery he was hypoxic. I have been asked to evaluate him after this episode. When I see him he reports being completely asymptomatic with no dyspnea, cough, chest pain, shortness of breath, fever. Preoperatively reports he was feeling well with no recent illness. Does have chronic gastroesophageal reflux and reports that he can not sleep on his back because he has prominent reflux symptoms. At this time he reports not having much abdominal pain and having no other concerns. Review of Systems Narrative: No recent illness or injury. [facility] Medical History (Updated 09/06/23 @ 16:58 by Harpal Malone MD) Anxiety ?F41.9 - Anxiety disorder, unspecified (ICD-10) Tinnitus ?H93.19 - Tinnitus, unspecified ear (ICD-10) Congestive heart failure ?I50.9 - Heart failure, unspecified (ICD-10) Neurodermatitis ?L28.0 - Lichen simplex chronicus (ICD-10) Tremor ?R25.1 - Tremor, unspecified (ICD-10) Toe cyanosis ?R23.0 - Cyanosis (ICD-10) Seasonal allergies ?J30.2 - Other seasonal allergic rhinitis (ICD-10) Nasal polyp ?J33.9 - Nasal polyp, unspecified (ICD-10) Insomnia ?G47.00 - Insomnia, unspecified (ICD-10) Hypertension ?I10 - Essential (primary) hypertension (ICD-10) Hiatal hernia ?K44.9 - Diaphragmatic hernia without obstruction or gangrene (ICD-10) Gastroesophageal reflux (12/16/09) ?K21.9 - Gastro-esophageal reflux disease without esophagitis (ICD-10) Degeneration of intervertebral disc of cervical region ?M50.30 - Other cervical disc degeneration, unspecified cervical region (ICD- 10) Carpal tunnel syndrome ?G56.00 - Carpal tunnel syndrome, unspecified upper limb (ICD-10) COVID-19 ?U07.1 - COVID-19 (ICD-10) History of tinnitus (12/16/09) ?Z86.69 - Personal history of other diseases of the nervous system and sense organs (ICD-10) Surgical History (Updated 09/06/23 @ 16:58 by Harpal Malone MD) History of umbilical hernia repair ?Z98.890 - Other specified postprocedural states (ICD-10) ?Z87.19 - Personal history of other diseases of the digestive system (ICD-10) Status post nasal polypectomy ?Z98.890 - Other specified postprocedural states (ICD-10) Status post cholecystectomy ?Z90.49 - Acquired absence of other specified parts of digestive tract (ICD- 10) Social History Smoking Status: Never smoker Do you use any of these nicotine containing products: None Second hand tobacco smoke exposure: No How often do you have a drink containing alcohol: never How often do you have six or more drinks on one occasion: Never AUDIT-C Alcohol total score: 0 Non-prescribed substance use: denies use Caffeine: Yes Little interest or pleasure in doing things: not at all Feeling down, depressed, or hopeless: several days service: Yes Meds Home Medications and Allergies Home Medications Medication Instructions Recorded Confirmed Type rosuvastatin 10 mg tablet 10 mg PO QPM 10/26/22 09/06/23 History spironolactone 25 mg tablet 12.5 mg PO QDAY 06/09/23 09/06/23 History carvedilol 6.25 mg tablet 3.125 mg PO BID 07/26/23 09/06/23 History losartan 50 mg tablet 50 mg PO BID 07/26/23 09/06/23 History omeprazole 20 mg capsule,delayed 20 mg PO QDAY 07/26/23 09/06/23 History release Allergies Allergy/AdvReac Type Severity Reaction Status Date / Time cyclobenzaprine Allergy Intermediate Headache Verified 08/31/23 09:43 esomeprazole Allergy Unknown Abdominal Verified 08/31/23 09:43 Pain amoxicillin AdvReac Severe Verified 08/31/23 09:43 Penicillins AdvReac Verified 08/31/23 09:43 Sulfa Antibiotics Allergy Unknown itching Uncoded 08/31/23 09:43 and swelling in hands and feet Exam Narrative: Exam Narrative: He is alert and appears in no distress. He gives his own history. O2 sats are 100% on room air and breathing is unlabored. Oropharynx is normal. Neck is supple without mass or adenopathy. Respirations are clear to auscultation. No wheezing rales or rhonchi. Cardiovascular: S1, S2, 1/6 systolic murmur. Regular rate and rhythm. Abdomen is soft without tenderness or mass. He has an abdominal binder. No significant drainage on the dressing. No significant erythema. Extremities with bilateral 1+ edema. Intact peripheral pulses. Const: Vital Signs, click to edit/add: Vital Signs - 24 hr 09/06/23 09:10 09/06/23 12:15 09/06/23 12:30 Temperature 98.6 F 96.5 F L Pulse Rate 65 75 74 Respiratory Rate 18 18 16 Blood Pressure 149/85 H 130/68 135/79 Pulse Oximetry 97 96 99 Oxygen Delivery Me thod Room Air OxyMask OxyMask Oxygen Flow Rate 10 10 09/06/23 12:45 09/06/23 12:45 09/06/23 13:00 Temperature 96.9 F L 96.9 F L 96.9 F L Pulse Rate 60 60 54 L Respiratory Rate 16 16 16 Blood Pressure 135/87 137/87 144/80 H Pulse Oximetry 95 95 98 Oxygen Delivery Me thod OxyMask OxyMask OxyMask Oxygen Flow Rate 0 0 0 09/06/23 13:15 09/06/23 13:30 09/06/23 13:45 Temperature 97.4 F L 97.4 F L 97.8 F Pulse Rate 65 61 64 Respiratory Rate 16 16 14 Blood Pressure 143/78 H 149/83 H 146/87 H Pulse Oximetry 99 98 99 Oxygen Delivery Me thod OxyMask OxyMask OxyMask Oxygen Flow Rate 0 0 0 09/06/23 14:00 09/06/23 14:30 Temperature 97.6 F 97.6 F Pulse Rate 58 L 61 Respiratory Rate 14 16 Blood Pressure 135/76 120/68 Pulse Oximetry 99 95 Oxygen Delivery Me thod OxyMask OxyMask Oxygen Flow Rate 0 0 Documenting provider has reviewed patient's vital signs: yes Assessment and Plan Assessment and plan (1) Aspiration into airway: Problem comment: Observed vomiting/aspiration event under anesthesia. Now asymptomatic. Will observe for signs or symptoms of aspiration pneumonia. For now will withhold antibiotics. Status: Acute (2) History of umbilical hernia repair: Problem comment: 09/06/2023, Dr. Husain. Status: Acute Assessment and Plan: Routine postoperative care (3) Gastroesophageal reflux: Problem comment: Chronic problem. Status: Acute (4) Hiatal hernia: Status: Acute Plan Observe in hospital for complications related to surgery, aspiration event. Routine postoperative cares. Total Time Spent Total Time Spent: Total time spent is 50 minutes, 30 minutes in coordination of care discussing with patient other providers ongoing evaluation management of aspiration
[2023-09-06] MEDS: HYDROCODONE-ACETAMIN 5-325 MG 1 TAB PO (17:20)
[2023-09-06] MEDS: LACTATED RINGERS 1000 ML 1,000 ML 75 ML IV (18:18)
[2023-09-06] MEDS: ACETAMINOPHEN 325 MG TABLET 650 MG PO (21:19)
[2023-09-06] MEDS: carvediloL 6.25 MG TABLET 3.125 MG PO (22:56)
[2023-09-06] MEDS: LOSARTAN POTASSIUM 50 MG TABLET PO (22:56)
--- NOTE | 2023-09-06 23:52 | PC.NURSE ---
End of Shift: Patient pleasant and cooperative, A&O. VSS, afebrile. SpO2 maintained above 90% on RA. Tolerating clear liquid diet. Dressing on abdomen C/D/I, abdominal binder in place for comfort. Talked with patient about splinting abdomen when getting in and out of bed to minimize pain.?Patient reports pain on abdomen, given PRN medication, with relief, see LEVON, active ice with relief.
[2023-09-07 00:05] VITALS: BP 141/74; PULSE 89; RESP 16; TEMP 37.1; O2SAT 99
[2023-09-07 03:10] VITALS: BP 129/80; PULSE 63; RESP 16; TEMP 36.6; O2SAT 96
[2023-09-07] MEDS: ACETAMINOPHEN 325 MG TABLET 650 MG PO (06:42)
[2023-09-07] MEDS: OMEPRAZOLE 20 MG CAPSULE DR PO (06:48)
--- NOTE | 2023-09-07 07:21 | PC.NURSE ---
Pt is alert and oriented x3. Afebrile. Pt reports 3/10 pain in abdomen managed with cold pack to site and?PRN pain medications. Pt?s abdominal dressing is CDI. Pt is voiding, tolerating a clear liquid diet and up ad hoang in room. Pt slept intermittently throughout most of night.???
[2023-09-07 07:34] VITALS: BP 147/5; PULSE 16; PULSE 71; RESP 16; TEMP 36.3; O2SAT 96
--- NOTE | 2023-09-07 09:00 | P.DS_ITS ---
DS: Providers Provider Date Seen: 09/07/23 Primary care physician: Lawson Bal MD Attending Physician on discharge: Carmel Husain MD DS: Diagnosis Discharge Diagnosis (1) Aspiration into airway: Status: Acute Problem details: Observed vomiting/aspiration event under anesthesia. Now asymptomatic. Will observe for signs or symptoms of aspiration pneumonia. For now will withhold antibiotics. (2) History of umbilical hernia repair: Status: Acute Problem details: 09/06/2023, Dr. Husain. DS: Summary Hospital Course Hospital Course: Patient was admitted overnight after he underwent open supraumbilical and umbilical hernia repair under MAC anesthesia. Patient was noted to vomit clear green bilious fluid intraoperatively. This was suctioned out. Postoperatively he maintained oxygen saturation over 90% on room air. He did well overnight. His chest x-ray did not show a lung infiltrate. Patient's pain was well controlled. Time Spent with Patient Time attestation: Total time spent providing and/or coordinating discharge services: Exam Narrative: Exam Narrative: Abdomen is soft, minimally tender to palpation to the right of the supraumbilical incision, surgical dressing is clean and dry. Const: Vital Signs, click to edit/add: Vital Signs - 24 hr 09/06/23 09:10 09/06/23 12:15 09/06/23 12:30 Temperature 98.6 F 96.5 F L Pulse Rate 65 75 74 Pulse Rate [Left D orsalis Pedis] Pulse Rate [Left P ulse Oximeter] Respiratory Rate 18 18 16 Blood Pressure 149/85 H 130/68 135/79 Blood Pressure [Ri ght Arm] Pulse Oximetry 97 96 99 Oxygen Delivery Me thod Room Air OxyMask OxyMask Oxygen Flow Rate 10 10 09/06/23 12:45 09/06/23 12:45 09/06/23 13:00 Temperature 96.9 F L 96.9 F L 96.9 F L Pulse Rate 60 60 54 L Pulse Rate [Left D orsalis Pedis] Pulse Rate [Left P ulse Oximeter] Respiratory Rate 16 16 16 Blood Pressure 135/87 137/87 144/80 H Blood Pressure [Ri ght Arm] Pulse Oximetry 95 95 98 Oxygen Delivery Me thod OxyMask OxyMask OxyMask Oxygen Flow Rate 0 0 0 09/06/23 13:15 09/06/23 13:30 09/06/23 13:45 Temperature 97.4 F L 97.4 F L 97.8 F Pulse Rate 65 61 64 Pulse Rate [Left D orsalis Pedis] Pulse Rate [Left P ulse Oximeter] Respiratory Rate 16 16 14 Blood Pressure 143/78 H 149/83 H 146/87 H Blood Pressure [Ri ght Arm] Pulse Oximetry 99 98 99 Oxygen Delivery Me thod OxyMask OxyMask OxyMask Oxygen Flow Rate 0 0 0 09/06/23 14:00 09/06/23 14:30 09/06/23 15:00 Temperature 97.6 F 97.6 F 98.1 F Pulse Rate 58 L 61 64 Pulse Rate [Left D orsalis Pedis] Pulse Rate [Left P ulse Oximeter] Respiratory Rate 14 16 18 Blood Pressure 135/76 120/68 127/88 Blood Pressure [Ri ght Arm] Pulse Oximetry 99 95 96 Oxygen Delivery Me thod OxyMask OxyMask Room Air Oxygen Flow Rate 0 0 09/06/23 16:00 09/06/23 17:00 09/06/23 18:00 Temperature 98.5 F Pulse Rate 60 61 67 Pulse Rate [Left D orsalis Pedis] Pulse Rate [Left P ulse Oximeter] Respiratory Rate 18 18 18 Blood Pressure 150/90 H 149/89 H 121/79 Blood Pressure [Ri ght Arm] Pulse Oximetry 98 99 99 Oxygen Delivery Me thod Room Air Room Air Room Air Oxygen Flow Rate 09/06/23 19:00 09/07/23 00:05 09/07/23 03:10 Temperature 98.7 F 98.7 F 97.9 F Pulse Rate Pulse Rate [Left D orsalis Pedis] Pulse Rate [Left P ulse Oximeter] 61 89 63 Respiratory Rate 16 16 16 Blood Pressure Blood Pressure [Ri ght Arm] 130/70 141/74 H 129/80 Pulse Oximetry 99 99 96 Oxygen Delivery Me thod Room Air Room Air Room Air Oxygen Flow Rate 0 09/07/23 07:34 Temperature 97.4 F L Pulse Rate Pulse Rate [Left D orsalis Pedis] 71 Pulse Rate [Left P ulse Oximeter] 16 L Respiratory Rate 16 Blood Pressure Blood Pressure [Ri ght Arm] 147/5 H Pulse Oximetry 96 Oxygen Delivery Me thod Room Air Oxygen Flow Rate Discharge Plan Discharge Disposition: Home w/ Parent or Adult Discharging Surgeon: Carmel Husain Follow-Up Appointment: Dr. Husain, [facility], September 14 @ 9:15 am Prescriptions: New hydrocodone-acetaminophen 5-325 mg Tablet 1 - 2 tab PO Q6H PRN (Reason: Pain) Qty: 30 0RF Continued spironolactone 25 mg tablet 12.5 mg PO QDAY carvedilol 6.25 mg tablet 3.125 mg PO BID Patient Comments: Patient takes half a tab losartan 50 mg tablet 50 mg PO BID omeprazole 20 mg capsule,delayed release(DR/EC) 20 mg PO QDAY rosuvastatin 10 mg tablet 10 mg PO QPM Activity Level: No strenuous activity Discharge Diet: Regular Patient Instructions: Ventral Hernia Repair (DC), Post-Operative Instructions: Hernia Repair Follow-up: Carmel Husain MD [Staff Physician] - 09/15/23 9:15 am ([facility] for follow-up) Lawson Bal MD [Primary Care Provider] - Discharge Orders: Discharge Order (Routine); Ordered 09/07/23 Ordered By: Carmel Husain
[2023-09-07] MEDS: HYDROCODONE-ACETAMIN 5-325 MG 1 TAB PO (10:03)
--- NOTE | 2023-09-07 12:07 | PC.NURSE ---
Patient discharged home with friend, Lazaro. Prescription for narcotic pain medication sent into [facility] per patient request. Patient tolerable with PO pain meds. Tolerating a regular diet. Wanted to take his home meds at home. Incision clean, dry and intact. PIV removed. Has follow up with Dr. Husain on 09/14. Educated patient on aspiration pneumonia and when to call provider and go to the ER.
== END 2023-09-07 12:05 | disposition home or self-care (01) ==
LOC: OR 08:53 → MEDSURG 14:07
PROVIDERS: PCP Family Medicine; Visit Provider Surgery
PROC: (CPT 49593; principal; 2023-09-06 10:30)
DX: K43.6 Other and unspecified ventral hernia with obstruction, without gangrene (principal); K42.9 Umbilical hernia without obstruction or gangrene; J95.88 Other intraoperative complications of respiratory system, not elsewhere classified; T17.918A Gastric contents in respiratory tract, part unspecified causing other injury, initial encounter; K21.9 Gastro-esophageal reflux disease without esophagitis; K44.9 Diaphragmatic hernia without obstruction or gangrene; F41.9 Anxiety disorder, unspecified; I11.0 Hypertensive heart disease with heart failure; I50.9 Heart failure, unspecified
CPT/HCPCS: 49593; 00830; 71045; A9270; C1781; J0665; J0736; J1100; J2405; J2704; J3010; J3490; J7120

== ENCOUNTER 2024-03-03 20:02 | Emergency (ER) | payer BC, MEDICARE, SELFPAY ==
[2024-03-03 20:54] VITALS: BP 162/86; PULSE 64; RESP 18; TEMP 35.7; O2SAT 99; BMI 39.7
--- NOTE | 2024-03-03 21:02 | CRLHL7_ITS ---
For Patients: As a result of the Cures Act, medical imaging exams and procedure reports are released immediately into your electronic medical record. You may view this report before your referring provider. If you have questions, please contact your health care provider. Indication: Stubbed toe, possible fracture. Technique: Left small toe 3 views. Comparison: None. Findings/Impression: Acute, slightly displaced fracture of the small toe proximal phalanx distal metaphysis with possible extension into the PIP joint. No other significant bone or joint abnormality. Dictated by Dewayne Conway MD @ 03/03/2024 9:34:06 PM (Electronically Signed)
--- NOTE | 2024-03-03 21:12 | ED_ITS ---
HPI - General Adult General Date Seen: 03/03/24 Chief complaint: Extremity Pain/Injury, Lower Stated complaint: L toe injury Time Seen by Provider: 03/03/24 20:24 Source: patient Mode of arrival: ambulatory Limitations: no limitations History of Present Illness HPI narrative: Patient is a 63-year-old male presenting for left 5th toe pain. States earlier today he was in a [place]erson to get to work and stubbed his toe. Was not too concerned about it but throughout the day noticed the toe was swelling up in is painful when he walks. When he is sitting down there is no pain. Injury happened around 13:30. Pain is a 1/10 at rest and 6 out 10 while walking. No other concerns noted. Denies any numbness to the toe Related Data Home Medications ?Medication ?Instructions ?Recorded ?Confirmed rosuvastatin 10 mg tablet 10 mg PO QPM 10/26/22 02/14/24 spironolactone 25 mg tablet 12.5 mg PO QDAY 06/09/23 02/14/24 carvedilol 6.25 mg tablet 3.125 mg PO BID 07/26/23 02/14/24 losartan 50 mg tablet 50 mg PO BID 07/26/23 02/14/24 omeprazole 20 mg capsule,delayed 20 mg PO QDAY 07/26/23 02/14/24 release Previous Rx's ?Medication ?Instructions ?Recorded zolpidem 10 mg tablet 10 mg PO QHS PRN insomnia #10 tabs 02/14/24 Allergies Allergy/AdvReac Type Severity Reaction Status Date / Time cyclobenzaprine Allergy Intermediate Headache Verified 02/14/24 15:39 esomeprazole Allergy Unknown Abdominal Verified 02/14/24 15:39 Pain amoxicillin AdvReac Severe Verified 02/14/24 15:39 Penicillins AdvReac Verified 02/14/24 15:39 Sulfa Antibiotics Allergy Unknown itching Uncoded 02/14/24 15:39 and swelling in hands and feet Review of Systems Narrative: Pertinent systems reviewed and were negative unless stated in HPI PFSH PFSH Medical History Tremor ?R25.1 - Tremor, unspecified (ICD-10) Toe cyanosis ?R23.0 - Cyanosis (ICD-10) Nasal polyp ?J33.9 - Nasal polyp, unspecified (ICD-10) Carpal tunnel syndrome ?G56.00 - Carpal tunnel syndrome, unspecified upper limb (ICD-10) COVID-19 ?U07.1 - COVID-19 (ICD-10) Surgical History History of umbilical hernia repair ?Z98.890 - Other specified postprocedural states (ICD-10) ?Z87.19 - Personal history of other diseases of the digestive system (ICD-10) Status post nasal polypectomy ?Z98.890 - Other specified postprocedural states (ICD-10) Status post cholecystectomy ?Z90.49 - Acquired absence of other specified parts of digestive tract (ICD- 10) Social History Smoking Status: Never smoker Do you use any of these nicotine containing products: None Second hand tobacco smoke exposure: No How often do you have a drink containing alcohol: never How often do you have six or more drinks on one occasion: Never AUDIT-C Alcohol total score: 0 Non-prescribed substance use: denies use Caffeine: Yes Little interest or pleasure in doing things: several days Feeling down, depressed, or hopeless: several days service: Yes Exam Narrative: Exam Narrative: Const: Well-nourished, Well-developed, in mild distress Eyes: PERRL, no conjunctival injection, and symmetrical lids HENT: Atraumatic external nose and ears. Moist mucous membranes. MSK: Swelling noted to left 5th toe with tenderness to palpation and bruising Skin: Warm, Dry. No rashes or lesions. Neuro: Normal Muscle tone, No focal neurological deficits. Psych: Awake, Alert, & Oriented x3. Appropriate mood and affect. Const: Vital Signs, click to edit/add: Vital Signs - 24 hr 03/03/24 20:54 Temperature 96.2 F L Pulse Rate [Left P ulse Oximeter] 64 Respiratory Rate 18 Blood Pressure [Ri ght Upper Arm] 162/86 H Pulse Oximetry 99 Oxygen Delivery Me thod Room Air Course Vital Signs Vital signs: Initial Vital Signs Temperature 96.2 F L 03/03/24 20:54 Temperature Source Temporal Artery Scan 03/03/24 20:54 Pulse Rate 64 03/03/24 20:54 Pulse Rhythm Regular 03/03/24 20:54 Respiratory Rate 18 03/03/24 20:54 Blood Pressure 162/86 H 03/03/24 20:54 Blood Pressure Mean 111 H 03/03/24 20:54 Blood Pressure Position Sitting 03/03/24 20:54 Pulse Oximetry 99 03/03/24 20:54 Oxygen Delivery Method Room Air 03/03/24 20:54 Vital Signs Temperature 96.2 F L 03/03/24 20:54 Pulse Rate 64 03/03/24 20:54 Respiratory Rate 18 03/03/24 20:54 Blood Pressure 162/86 H 03/03/24 20:54 Pulse Oximetry 99 03/03/24 20:54 Oxygen Delivery Method Room Air 03/03/24 20:54 Temperature 96.2 F L 03/03/24 20:54 Pulse Rate 64 03/03/24 20:54 Respiratory Rate 18 03/03/24 20:54 Blood Pressure 162/86 H 03/03/24 20:54 Pulse Oximetry 99 03/03/24 20:54 Oxygen Delivery Method Room Air 03/03/24 20:54 Medical Decision Making MDM Narrative Medical decision making narrative: Patient is a 63-year-old male presenting for left 5th toe pain. Concerned about fracture. Will do an x-ray for evaluation. Currently neurovascular intact. Not requesting any pain medication at this time. X-ray returned showing an acute slightly displaced fracture of the small toe proximal phalanx distal metaphysis and possible extension the PIP joint. Does not require reduction. I offered the patient a stiff-soled shoe but he would prefer to just do angeline taping. This is reasonable. Patient will be discharged. Imaging Data Left 5th toe x-ray: Attestation: I have reviewed the pertinent imaging results. Radiologist's impression: Acute, slightly displaced fracture of the small toe proximal phalanx distal metaphysis with possible extension into the PIP joint. No other significant bone or joint abnormality. Dictated by Dewayne Conway MD @ 03/03/2024 9:34:06 PM Discharge Plan Discharge Clinical Impression: Fracture of toe Qualifiers: Encounter type: initial encounter Toe: lesser toe Fracture type: closed Phalanx: proximal Fracture alignment: displaced Laterality: left Qualified Code(s): S92.512A - Displaced fracture of proximal phalanx of left lesser toe(s), initial encounter for closed fracture Additional Instructions: If symptoms are continuing to bother it Follow-up with [facility]. Call them at . Angeline tape your toe to the next 1 over when ambulating. Return for new or worsening symptoms. Take Tylenol and ibuprofen for pain Prescriptions: No Action spironolactone 25 mg tablet 12.5 mg PO QDAY carvedilol 6.25 mg tablet 3.125 mg PO BID Patient Comments: Patient takes half a tab losartan 50 mg tablet 50 mg PO BID omeprazole 20 mg capsule,delayed release(DR/EC) 20 mg PO QDAY zolpidem 10 mg tablet 10 mg PO QHS PRN (Reason: insomnia) Qty: 10 0RF rosuvastatin 10 mg tablet 10 mg PO QPM Follow Up/Referrals: Lawson Bal MD [Primary Care Provider] - Stand Alone Forms: [employer] Info Instructions
--- OUTSIDE RECORDS SUMMARY | 2024-03-03 21:26 | XMS_ITS | Clinical Summary ---
Author Organization [employer] [facility] Address [place], [place] [address] Care Team Providers Care Event Staff Name Role Phone Racheal Saldana MD Unavailable [phone] [facility] Unavailable [phone] Lawson Bal MD Primary Care Provider Allergies [...] 4000mg in 24 hrs. Indications: Pain Active furosemide (LASIX) 20 mg tabletIndications: SOB (shortness of breath) TAKE ONE-HALF TABLET EVERY DAY DIRECTED BY [facility] 15 Tablet 12/07/2022 Active carvediloL (COREG) 3.125 mg tabletIndications: Heart failure, unspecified HF chronicity, unspecified heart failure type (HC) Take 1 Tablet (3.125 mg) by mouth two times daily with meals. 180 Tablet 3 07/27/2023 Active rosuvastatin (CRESTOR) 10 mg tabletIndications: Dyslipidemia Take 1 Tablet (10 mg) by mouth at bedtime. 90 Tablet 3 09/13/2023 Active losartan (COZAAR) 50 mg tabletIndications: Chronic HFrEF (heart failure with reduced ejection fraction) (HC) Take 1 Tablet (50 mg) by mouth two times daily. 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 Cardiomyopathy 05/12/2019 Allergic rhinitis, cause unspecified 08/10/2007 Screening for lipoid disorders 08/10/2007 Overview (08/10/2007): 02-22-2006 Total-214 LDL-136 HDL-45 Trig-163 Encounters Date Type Department Care Team Description 02/02/2024 Refill [facility] [address] [place] [address] Cortes Schumacher MD Refill Request (Spironolactone) 01/22/2024 Refill [facility] [address] [place] [address] Cortes Schumacher MD Refill Request (Losartan) from Last 3 Months Immunizations Name Administration [...] Last Done Comments Pneumococcal series for age 65+ (1 of 2 - PCV) 1964 Tdap 1969 Depression screening for age 12+ 1970 HIV for age 15-65 1973 Hepatitis C screening for ag e 18-79 1976 Colonoscopy through age 75 10/18/2003 Zoster (shingles) series for age 50+ (1 of 2) 2008 Tetanus booster 04/26/2009 04/26/1999 Lipids for age 45-75 02/22/2011 02/22/2006 (Completed outside of [facility]) COVID-19 vaccine series ( season) 2023 2020 Influenza for age 65+ 12/26/2023 BMI (ht and wt on same day) for age 18+ 07/26/2024 07/27/2023, 08/06/2022, 07/21/2019, Additional history exists Advance Directives * Full Code (Latest Code Status on File) Date Activated Date Inactivated Comments 12/05/2018 11:59 AM 12/05/2018 3:12 PM Care Teams Event Staff Relationship Specialty Start Date End Date Lawson Bal MD [address] [place] [address] PCP - General Family Practice 06/02/23 Racheal Saldana MD [address] [place] [phone] 12/30/10 [facility], [facility] [address] [facility] [address] [place] [address] Cardiology - CHF 06/11/22
[2024-03-03 21:30] VITALS: BP 158/82; PULSE 64; RESP 18; O2SAT 97
== END 2024-03-03 22:08 | disposition home or self-care (01) ==
PROVIDERS: Emergency Provider Student in an Organized Health Care Education/Training Program; PCP Family Medicine
DX: S92.512A Displaced fracture of proximal phalanx of left lesser toe(s), initial encounter for closed fracture (principal); W22.8XXA Striking against or struck by other objects, initial encounter
CPT/HCPCS: 73660; 99282; 99283

== ENCOUNTER 2024-03-26 12:18 | Emergency (ER) | payer BC, MEDICARE, SELFPAY ==
[2024-03-26 12:31] VITALS: BP 161/87; PULSE 67; RESP 18; TEMP 36.4; O2SAT 99; BMI 38.4
--- NOTE | 2024-03-26 12:39 | ED.GENADULT ---
HPI - General Adult General Date Seen: 03/26/24 Chief complaint: Ear/Nose/Throat Problem Stated complaint: chicken bone stuck in throat Time Seen by Provider: 03/26/24 12:33 Source: patient Mode of arrival: ambulatory Limitations: no limitations History of Present Illness HPI narrative: Patient is a 63-year-old male presenting for concern of a foreign body in his throat. States he was eating chicken yesterday when he felt like a chicken bone got stuck. States it is nonpainful they feels like there is something stuck in his throat. Has been tolerating solids and liquids since this occurred. No other concerns noted. Is not symptoms like this before. Not having any chest pain or shortness of breath. Has not had anything like this happen to him before. Related Data Home Medications ?Medication ?Instructions ?Recorded ?Confirmed rosuvastatin 10 mg tablet 10 mg PO QPM 10/26/22 02/14/24 spironolactone 25 mg tablet 12.5 mg PO QDAY 06/09/23 02/14/24 carvedilol 6.25 mg tablet 3.125 mg PO BID 07/26/23 02/14/24 losartan 50 mg tablet 50 mg PO BID 07/26/23 02/14/24 omeprazole 20 mg capsule,delayed 20 mg PO QDAY 07/26/23 02/14/24 release Previous Rx's ?Medication ?Instructions ?Recorded zolpidem 10 mg tablet 10 mg PO QHS PRN insomnia #10 tabs 02/14/24 Allergies Allergy/AdvReac Type Severity Reaction Status Date / Time cyclobenzaprine Allergy Intermediate Headache Verified 02/14/24 15:39 esomeprazole Allergy Unknown Abdominal Verified 02/14/24 15:39 Pain amoxicillin AdvReac Severe Verified 02/14/24 15:39 Penicillins AdvReac Verified 02/14/24 15:39 Sulfa Antibiotics Allergy Unknown itching Uncoded 02/14/24 15:39 and swelling in hands and feet Review of Systems Narrative: Pertinent systems reviewed and were negative unless stated in HPI PFSH PFS Medical History Tremor ?R25.1 - Tremor, unspecified (ICD-10) Toe cyanosis ?R23.0 - Cyanosis (ICD-10) Nasal polyp ?J33.9 - Nasal polyp, unspecified (ICD-10) Carpal tunnel syndrome ?G56.00 - Carpal tunnel syndrome, unspecified upper limb (ICD-10) COVID-19 ?U07.1 - COVID-19 (ICD-10) Surgical History History of umbilical hernia repair ?Z98.890 - Other specified postprocedural states (ICD-10) ?Z87.19 - Personal history of other diseases of the digestive system (ICD-10) Status post nasal polypectomy ?Z98.890 - Other specified postprocedural states (ICD-10) Status post cholecystectomy ?Z90.49 - Acquired absence of other specified parts of digestive tract (ICD-10) Social History Smoking Status: Never smoker Do you use any of these nicotine containing products: None Second hand tobacco smoke exposure: No How often do you have a drink containing alcohol: never How often do you have six or more drinks on one occasion: Never AUDIT-C Alcohol total score: 0 Non-prescribed substance use: denies use Caffeine: Yes service: Yes Exam Narrative: Exam Narrative: Const: Well-nourished, Well-developed, in no distress Eyes: PERRL, no conjunctival injection, and symmetrical lids HENT: Atraumatic external nose and ears. Moist mucous membranes. MSK:Extremities w/o deformity, Normal Active ROM Skin: Warm, Dry. No rashes or lesions. Neuro: Normal Muscle tone, No focal neurological deficits. Psych: Awake, Alert, & Oriented x3. Appropriate mood and affect. Const: Vital Signs, click to edit/add: Vital Signs - 24 hr 03/26/24 12:31 Temperature 97.5 F L Pulse Rate [Pulse Oximeter] 67 Respiratory Rate 18 Blood Pressure [Ri ght Upper Arm] 161/87 H Pulse Oximetry 99 Course Vital Signs Vital signs: Initial Vital Signs Temperature 97.5 F L 03/26/24 12:31 Temperature Source Temporal Artery Scan 03/26/24 12:31 Pulse Rate 67 03/26/24 12:31 Pulse Rhythm Regular 03/26/24 12:31 Respiratory Rate 18 03/26/24 12:31 Blood Pressure 161/87 H 03/26/24 12:31 Blood Pressure Mean 111 H 03/26/24 12:31 Blood Pressure Position Sitting 03/26/24 12:31 Pulse Oximetry 99 03/26/24 12:31 Vital Signs Temperature 97.5 F L 03/26/24 12:31 Pulse Rate 67 03/26/24 12:31 Respiratory Rate 18 03/26/24 12:31 Blood Pressure 161/87 H 03/26/24 12:31 Pulse Oximetry 99 03/26/24 12:31 Temperature 97.5 F L 03/26/24 12:31 Pulse Rate 67 03/26/24 12:31 Respiratory Rate 18 03/26/24 12:31 Blood Pressure 161/87 H 03/26/24 12:31 Pulse Oximetry 99 03/26/24 12:31 Medical Decision Making MDM Narrative Medical decision making narrative: Patient is a 63-year-old male for concern of a chicken bone stuck in his throat. Has been tolerating p.o. intake without issue. No other symptoms. Vital signs are stable. Seems unlikely there is a check amount stuck in his throat right now and most likely is just a globus sensation. Imaging is not necessary at this time in my opinion by did offer chest x-ray. He declined at this time considering he was is mostly concerned for possible infection and he is again tolerating p.o. intake without any issues. I informed have symptoms persist patient follow-up with GI or General surgery for possible endoscopy. Also informed him to return if symptoms are getting worse. He is agreeable to this plan. Discharge Plan Discharge Clinical Impression: Globus sensation Patient Disposition: Home, Self-Care Condition: Stable Instructions: Esophageal Foreign Body (ED) Additional Instructions: If symptoms are most likely from a small scratch in your esophagus that will heal on its own. You should be able to eat and drink without issue. Symptoms should improve on their own. If you do have difficulty swallowing return for re-evaluation. If this sensation continues he also you may want to follow up with General surgery or a GI specialist for possible endoscopy. Prescriptions: No Action spironolactone 25 mg tablet 12.5 mg PO QDAY carvedilol 6.25 mg tablet 3.125 mg PO BID Patient Comments: Patient takes half a tab losartan 50 mg tablet 50 mg PO BID omeprazole 20 mg capsule,delayed release(DR/EC) 20 mg PO QDAY zolpidem 10 mg tablet 10 mg PO QHS PRN (Reason: insomnia) Qty: 10 0RF rosuvastatin 10 mg tablet 10 mg PO QPM Follow Up/Referrals: Lawson Bal MD [Primary Care Provider] - Stand Alone Forms: [employer] Info Instructions
--- OUTSIDE RECORDS SUMMARY | 2024-03-26 12:49 | XMS_ITS | Clinical Summary ---
Author Organization [employer] [facility] Address [place], [place] [address] Care Team Providers Care Grocery Clerk Marking Name Role Phone Racheal Saldana MD Unavailable [facility] Unavailable [phone] Lawson Bal MD Primary Care Provider [...] TAKE ONE-HALF TABLET EVERY DAY DIRECTED BY [facility] 15 Tablet 12/07/2022 Active carvediloL (COREG) 3.125 [...] Type Department Care Team Description 02/02/[address] [facility] [address] [place] [address] Cortes Schumacher MD Refill Request (Spironolactone) 01/22/[address] [facility] [address] [place] [address] Cortes Schumacher MD Refill Request (Losartan) from Last 3 Months Immunizations Name Administration Dates Next Due Td (Age >=7 Years) 04/26/1999 Family History Medical History Relation Name Comments Unknown Father [place] age 40 Other Maternal Uncle Kidney Failur e Thyroid Disease Mother Diabetes Paternal Aunt 1 Other Paternal Aunt 2 [place] Allergies Sister 2 Relation Name Status Comments [...] 60 07/27/2023 1:23 PM CDT Temperature 36.8 C (98.2 F) 12/05/2018 2:08 PM CDT Respiratory Rate 14 02/16/2020 3:10 PM CDT [...] (Completed outside of [facility]) COVID-19 vaccine series ( season) 2023 2020 Influenza for age 65+ 12/26/2023 BMI (ht and wt on same day) for age 18+ 07/26/2024 07/27/2023, 08/06/2022, 07/21/2019, Additional history exists Advance Directives * Full Code (Latest Code Status on File) Date Activated Date Inactivated Comments 12/05/2018 11:59 AM 12/05/2018 3:12 PM Care Teams Grocery Clerk Marking Relationship Specialty Start Date End Date Lawson Bal MD [address] [place] [address] PCP - General Family Practice 06/02/23 Racheal Saldana MD [address] [place] [phone] 12/30/10 [facility], [facility] [place] [address] [place] [address] Cardiology - CHF 06/11/22
== END 2024-03-26 12:50 | disposition home or self-care (01) ==
LOC: ED 12:47
PROVIDERS: Emergency Provider Student in an Organized Health Care Education/Training Program; PCP Family Medicine
DX: R09.A2 Foreign body sensation, throat (principal)
CPT/HCPCS: 99283

== ENCOUNTER 2024-09-06 08:40 | Emergency (ER) | payer BC, MEDICARE, SELFPAY ==
[2024-09-06 08:43] VITALS: BP 134/79; PULSE 63; RESP 16; TEMP 36.4; O2SAT 95; BMI 38.4
--- OUTSIDE RECORDS SUMMARY | 2024-09-06 08:43 | XMS_ITS | Clinical Summary ---
Author Organization [facility] Address [address] [place] [address] Care Team Providers Care Employment Service Specialist Name Role Phone Racheal Saldana MD Unavailable [phone] [facility], [facility], [facility] Unavailable [phone] Lawson Bal MD Primary Care Provider Allergies Active Allergy Reactions Criticality Noted Date Comments Amoxicillin Hives 08/10/2007 Cyclobenzaprine Headache,Other - Describe In Comment Field Sore throat and dry mouth Esomeprazole Other - Describe In Comment Field stomach pain Sulfa (Sulfonamide Antibiotics) 08/10/2007 as a child Medications omeprazole (PRILOSEC) 10 mg capsule Take 1 capsule by mouth once daily before a meal. 0 01/31/20 13 Active rosuvastatin (CRESTOR) 10 mg tabletIndicatio ns:Dyslipidemia Take 1 Tablet (10 mg) by mouth at bedtime. 90 Tablet 3 09/13/19 24 Active losartan (COZAAR) 50 mg tabletIndicatio ns:Chronic HFrEF (heart failure with reduced ejection fraction) (HC) Take 1 Tablet (50 mg) by mouth two times daily. 180 Tablet 1 01/24/20 24 Active spironolactone (ALDACTONE) 25 mg tabletIndicatio ns:Heart failure, unspecified HF chronicity, unspecified heart failure type (HC) TAKE 1/2 TABLET(12.5 MG) BY MOUTH EVERY DAY 45 Tablet 2 02/02/20 24 Active carvediloL (COREG) 3.125 mg tabletIndicatio ns:Heart failure, unspecified HF chronicity, unspecified heart failure type (HC) Take 1 Tablet (3.125 mg) by mouth two times daily with meals. Due for cardiology follow up. Please call [phone] to schedule. 180 Tablet 06/02/19 25 Active acetaminophen (TYLENOL) 325 mg tabletIndicatio ns:pain Take 650 mg by mouth every 4 hours if needed. Max acetaminophen dose: 4000mg in 24 hrs. 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 Echo prior. Pt states feeling good. No recent cardiac symptoms.) 08/23/2024 1:21 PM CDT - 08/23/2024 11:59 PM CDT Hospital Encounter [facility] [address] [place] [address] Cortes Panda MD Primary cardiomyopathy (HC); Heart failure, unspecified HF chronicity, unspecified heart failure type (HC) 08/23/2024 Travel 08/19/2024 Travel from Last 3 Months Immunizations Immunization Administration Dates Next Due Td (Age >=7 Years) 04/26/1999 Family History Medical History Relation Name Comments Unknown Father ND age 40 Other Maternal Uncle Kidney Failur e Thyroid Disease Mother Diabetes Paternal Aunt 1 Other Paternal Aunt 2 ND Allergies Sister 2 Relation Name Status Comments Brother Alive Father Maternal Uncle Mother Alive Paternal Aunt 1 Paternal Aunt 2 Sister 1 Alive Sister 2 Social History Tobacco Use Types Packs/Day Years Used Date Smoking Tobacco: Never Smokeless Tobacco: Never Tobacco Cessation:Counseling Given: Yes Comments:Non Smoker Alcohol Use Standard Drinks/Week Comments No 0 (1 standard drink = 0.6 oz pur e alcohol) Financial Resource Strain Answer Date R ecorded Difficulty of Paying Living Expenses Not on file 04/26/2021 Difficulty of Paying Living Expenses Not on file 04/26/2021 Sex and Gender Information Value Date Recorded Sex Assigned at Not on file 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 Gender Identity Not on file Sexual Orientation Not on file Occupation Industry Job Start Date Job End Date [employer] Not on file Not on file Not on file Not on file Not on file Not on file Not on file Obstetrics History Last Filed Vital Signs Vital Sign Reading Time Taken Comments Blood Pressure 132/84 08/23/2024 2:20 PM CDT Pulse 60 08/23/2024 2:20 PM CDT Temperature 36.8 C (98.2 F) 12/05/2018 2:08 PM CDT Respiratory Rate 14 02/16/2020 3:10 PM CDT Oxygen Saturation 99% 08/23/2024 2:20 PM CDT Inhaled Oxygen Concentration - - Weight 123.4 kg (272 lb) 08/23/2024 2:20 PM CDT Height 180.3 cm (5' 11) 08/23/2024 2:20 PM CDT Body Mass Index 37.94 08/23/2024 2:20 PM CDT Plan of Treatment Health Maintenance Due Date Last Done Comments Tdap 1969 Depression screening for age 12+ 1970 HIV for age 15-65 1973 Hepatitis C screening for ag e 18-79 1976 Pneumococcal series for age 50+ (1 of 2 - PCV) 1977 Colonoscopy through age 75 10/18/2003 Zoster (shingles) series for age 50+ (1 of 2) 2008 Tetanus booster 04/26/2009 04/26/1999 Lipids for age 45-75 02/22/2011 02/22/2006 (Completed outside of [facility]) COVID-19 vaccine series (2 - season) 2023 2020 Influenza Vaccine (Season Ended) 2024 BMI (ht and wt on same day) for age 18+ 08/23/2025 08/23/2024, 07/27/2023, 08/06/2022, Additional history exists RSV vaccine for adults or (1 - 1-dose 75+ series) 2033 Procedures Procedure Name Priority Date/Time Associated Diagnosis Comments ECHO TTE COMPLETE WO CONTRAST Routine 08/23/2024 2:05 PM CDT Primary cardiomyopathy (HC) Heart failure, unspecified HF chronicity, unspecified heart failure type (HC) from Last 3 Months Results * ECHO TTE COMPLETE WO CONTRAST (08/23/2024 2:05 PM CDT) AORTIC VALVE MEAN PG 3 mmHg EJECTION FRACTION 45 % LVEDD 6.2 cm Anatomical Region Laterality Modality Ultrasound 08/23/2024 1:41 PM CDT Narrative 08/23/2024 2:30 PM CDT ECHOCARDIOGRAM HARVINDER LLANES : 1960 63 years Study Date: 08/23/2024 1:41:52 PM Gender: M BP: 130/92 mmHg Height: 180.00 cm BSA: 2.41 m Weight: 124.00 kg Tech: NB Referring MD: CORTES PANDA Site: [facility] Reading Location: [facility] Patient Location: Outpatient. Procedure: 2D, Color Doppler and Spectral Doppler. Indication for study: Primary CM Cardiac Rhythm: Regular.Study quality: Good. Final Impressions: 1. Moderately increased left ventricular size, borderline wall thickness, mildly reduced global systolic function, calculated EF of 45 %. 2. Right ventricular cavity size is normal, global systolic RV function is normal. 3. The aortic valve is trileaflet and sclerotic, no stenosis and no regurgitation. 4. Moderately enlarged left atrium. Comparison Compared to prior exam of 07/11/23, there has been no significant change. Chamber Sizes and Function Moderately increased left ventricular size, borderline wall thickness, mildly reduced global systolic function, calculated EF of 45 %. No resting regional wall motion abnormality visualized. Left atrial size is moderately enlarged. Right ventricular cavity size is normal, global systolic RV function is normal. RV wall thickness is normal. The right atrium is normal. Right atrial area is 18 cm . The pulmonary artery is of normal size and origin. The sinus of Valsalva is normal for age/sex/bsa. The ascending aorta is normal sized. Valves, RV Pressures and Diastolic Function The aortic valve is trileaflet and sclerotic, no stenosis and no regurgitation. The mitral valve is normal in structure, no mitral regurgitation. Indeterminate pattern of LV diastolic filling. The tricuspid valve is normal in structure, regurgitation is not evident tricuspid regurgitation. The pulmonic valve is not well visualized. Unable to determine pulmonary regurgitation. Masses, Effusion, Shunts There is no pericardial effusion. The inferior vena cava is normal sized, respiratory size variation greater than 50%. No left to right shunting was detected by limited color flow Doppler interrogation of the interatrial septum. MEASUREMENTS AND CALCULATIONS 2-D Measurements and LV Function: LVID (d) 6.2 cm Planimetered EF 45 % LVID (s) 5.0 cm LV FS% (2D) 19 % IVS (d) 1.1 cm LVOT diameter 2.4 cm LVPW (d) 1.1 cm HR 62 bpm Ao Sinus 4.1 cm LA Vol index 47 ml/m2 Ao Sinus ULN 4.2 cm * RA area 18 cm Asc Ao 3.6 cm RV Basal Diam 4.2 cm Asc Ao ULN 4.2 cm * LA 4.5 cm * Input BSA outside of range, reported values correspond to BSA = 2.1 Diastology: Mitral Tissue Doppler Pulmonary veins E Peak 0.8 m/s e', Septum 0.06 m/s Pulm s 57.9 cm/s A Peak 0.8 m/s e', Lateral 0.09 m/s Pulm d 42.3 cm/s E/A 1.0 E/e' Average 10.49 Pulm s/d ratio 1.37 DT 222 msec IVRT 108 msec Aortic Valve: Vmax 1.2 m/s ALEM (V) 3.30 cm VTI 0.29 m ALEM (I) 3.30 cm LVOT V max 0.9 m/s Max PG 6 mmHg LVOT VTI 0.21 m Mean PG 3 mmHg SV 97 ml Dim Index 0.73 SV index 40 ml/m CO 6.0 l/min CI 2.5 l/min/m Mitral Valve: MVA 3.4 cm MV P 1/2 64 msec Tricuspid Valve and estimated PA pressures: TAPSE 2.1 cm Pulmonic Valve: PV Vmax 1.2 m/s . This study was interpreted by an [facility] accredited facility. Final Procedure Note Cortes Panda MD - 08/23/2024 ECHOCARDIOGRAM HARVINDER LLANES : 1960 63 years Study Date: 08/23/2024 1:41:52 PM Gender: M BP: 130/92 mmHg Height: 180.00 cm BSA: 2.41 m Weight: 124.00 kg Tech: NB Referring MD: CORTES PANDA Site: [facility] Reading Location: [facility] Patient Location: Outpatient. Procedure: 2D, Color Doppler and Spectral Doppler. Indication for study: Primary CM Cardiac Rhythm: Regular.Study quality: Good. Final Impressions: 1. Moderately increased left ventricular size, borderline wall thickness,mildly reduced global systolic function, calculated EF of 45 %. 2. Right ventricular cavity size is normal, global systolic RV functionis normal. 3. The aortic valve is trileaflet and sclerotic, no stenosis and noregurgitation. 4. Moderately enlarged left atrium. Comparison Compared to prior exam of 07/11/23, there has been no significant change. Chamber Sizes and Function Moderately increased left ventricular size, borderline wall thickness,mildly reduced global systolic function, calculated EF of 45 %. No restingregional wall motion abnormality visualized. Left atrial size ismoderately enlarged. Right ventricular cavity size is normal, globalsystolic RV function is normal. RV wall thickness is normal. The rightatrium is normal. Right atrial area is 18 cm . The pulmonary artery is ofnormal size and origin. The sinus of Valsalva is normal for age/sex/bsa.The ascending aorta is normal sized. Valves, RV Pressures and Diastolic Function The aortic valve is trileaflet and sclerotic, no stenosis and noregurgitation. The mitral valve is normal in structure, no mitralregurgitation. Indeterminate pattern of LV diastolic filling. Thetricuspid valve is normal in structure, regurgitation is not evidenttricuspid regurgitation. The pulmonic valve is not well visualized. Unableto determine pulmonary regurgitation. Masses, Effusion, Shunts There is no pericardial effusion. The inferior vena cava is normal sized,respiratory size variation greater than 50%. No left to right shunting wasdetected by limited color flow Doppler interrogation of the interatrialseptum. MEASUREMENTS AND CALCULATIONS 2-D Measurements and LV Function: LVID (d) 6.2 cm Planimetered EF 45% LVID (s) 5.0 cm LV FS% (2D) 19% IVS (d) 1.1 cm LVOT diameter2.4 cm LVPW (d) 1.1 cm HR 62bpm Ao Sinus 4.1 cm LA Vol index 47ml/m2 Ao Sinus ULN 4.2 cm * RA area 18cm Asc Ao 3.6 cm RV Basal Diam4.2 cm Asc Ao ULN 4.2 cm * LA 4.5 cm * Input BSA outside of range, reported values correspond to BSA = 2.1 Diastology: Mitral Tissue Doppler Pulmonary veins E Peak 0.8 m/s e', Septum 0.06 m/s Pulm s 57.9 cm/s A Peak 0.8 m/s e', Lateral 0.09 m/s Pulm d 42.3 cm/s E/A 1.0 E/e' Average 10.49 Pulm s/d ratio 1.37 DT 222 msec IVRT 108 msec Aortic Valve: Vmax 1.2 m/s ALEM (V) 3.30 cm VTI 0.29 m ALEM (I) 3.30 cm LVOT V max 0.9 m/s Max PG 6 mmHg LVOT VTI 0.21 m Mean PG 3 mmHg SV 97 ml Dim Index 0.73 SV index 40 ml/m CO 6.0 l/min CI 2.5 l/min/m Mitral Valve: MVA 3.4 cm MV P 1/2 64 msec Tricuspid Valve and estimated PA pressures: TAPSE 2.1 cm Pulmonic Valve: PV Vmax 1.2 m/s . This study was interpreted by an [facility] accredited facility. Final us Cortes Panda MD ECHO ORD Final Result from Last 3 [place] [id number] [place] [address] [place] [id number] [facility] Advance Directives * Full Code (Latest Code Status on File) Date Activated Date Inactivated Comments 12/05/2018 11:59 AM 12/05/2018 3:12 PM Care Teams Employment Service Specialist Relationship Specialty Start Date End Date Lawson Bal MD [address] [place] [address] PCP - General Family Practice 06/02/23 Racheal Saldana MD [address] [place] [phone] 12/30/10 [facility], [facility], [facility] [address] [address] Cardiology - CHF 06/11/22
--- NOTE | 2024-09-06 09:11 | ED.LOWEXIN ---
HPI - Extremity Injury (Lower) General Chief Complaint: Extremity Pain/Injury, Lower Stated Complaint: Left leg fell and twisted it Time Seen by Provider: 09/06/24 09:03 History of Present Illness HPI Narrative: This 63-year-old male comes in with an injury to his left knee. He states that he fell yesterday and twisted his knee. Since then he has been able to ambulate but states that it does not feel right. In particular he states that it feels wobbly or unstable. He does not report any catching or locking. He reports pain in the medial aspect of his left knee. Related Data Home Medications ?Medication ?Instructions ?Recorded ?Confirmed rosuvastatin 10 mg tablet 10 mg PO QPM 10/26/22 06/23/24 spironolactone 25 mg tablet 12.5 mg PO QDAY 06/09/23 06/23/24 carvedilol 6.25 mg tablet 3.125 mg PO BID 07/26/23 06/23/24 losartan 50 mg tablet 50 mg PO BID 07/26/23 06/23/24 omeprazole 20 mg capsule,delayed 20 mg PO QDAY 07/26/23 06/23/24 release Previous Rx's ?Medication ?Instructions ?Recorded zolpidem 10 mg tablet 10 mg PO QHS PRN insomnia #10 tabs 03/29/24 Allergies Allergy/AdvReac Type Severity Reaction Status Date / Time cyclobenzaprine Allergy Intermediate Headache Verified 06/23/24 12:40 esomeprazole Allergy Unknown Abdominal Verified 06/23/24 12:40 Pain amoxicillin AdvReac Severe Verified 06/23/24 12:40 Penicillins AdvReac Verified 06/23/24 12:40 Sulfa Antibiotics Allergy Unknown itching Uncoded 06/23/24 12:40 and swelling in hands and feet Review of Systems Status of ROS: Reports: 10 or more systems reviewed and unremarkable except as noted in History and below Narrative: Constitutional: No fevers, no weight gain or loss. Eyes: No discharge. No vision changes. HENT: No congestion, no sore throat, no ear pain. Cardiovascular: No chest pain, no palpitations. Respiratory: No shortness of breath, no wheezes, no cough. Gastrointestinal: No abdominal pain, no vomiting, no diarrhea. Genitourinary: No dysuria, no hematuria. Musculoskeletal: Normal range of motion. Left knee pain as described above. Skin: No rashes, no pruritis. Neurological: No dizziness, weakness, sensory change, speech change. Endo/Heme/Allergies: No bruising or bleeding. No polydipsia. Pysch: no suicidality, no anxiety, no insomnia. All other systems reviewed and are negative. [facility] Medical History Tremor ?R25.1 - Tremor, unspecified (ICD-10) Toe cyanosis ?R23.0 - Cyanosis (ICD-10) Nasal polyp ?J33.9 - Nasal polyp, unspecified (ICD-10) Carpal tunnel syndrome ?G56.00 - Carpal tunnel syndrome, unspecified upper limb (ICD-10) COVID-19 ?U07.1 - COVID-19 (ICD-10) Surgical History History of umbilical hernia repair ?Z98.890 - Other specified postprocedural states (ICD-10) ?Z87.19 - Personal history of other diseases of the digestive system (ICD-10) Status post nasal polypectomy ?Z98.890 - Other specified postprocedural states (ICD-10) Status post cholecystectomy ?Z90.49 - Acquired absence of other specified parts of digestive tract (ICD-10) Social History Smoking Status: Never smoker Do you use any of these nicotine containing products: None Second hand tobacco smoke exposure: No How often do you have a drink containing alcohol: never How often do you have six or more drinks on one occasion: Never AUDIT-C Alcohol total score: 0 Non-prescribed substance use: denies use Caffeine: Yes service: Yes Exam Narrative: Exam Narrative: Constitutional: Well-developed, well-nourished, no acute distress. HEENT: Normocephalic, atraumatic. Neck: Normal range of motion. Nontender. Supple. Heart: Intact distal pulses. Lungs: No chest discomfort. No wheezes, rhonchi, or rales. Abdomen: Nontender. Back: Normal range of motion. Extremities: Normal range of motion. Left knee pain along the medial aspect where the MCL ligament resides. Patient has distinct pain reproduced with valgus stress of his knee joint on exam. There is no joint effusion. Skin: Intact. No rash. Warm. No erythema or pallor. Neurologic: No altered sensation. No weakness. Alert and oriented. Psychiatric: No suicidality. No anxiety or depression. No insomnia. Nursing notes and vitals signs are reviewed. Const: Vital Signs, click to edit/add: Vital Signs - 24 hr 09/06/24 08:43 Temperature 97.5 F L Pulse Rate [Pulse Oximeter] 63 Respiratory Rate 16 Blood Pressure [Ri t Upper Arm] 134/79 Pulse Oximetry 95 Oxygen Delivery Me thod Room Air Course Vital Signs Vital signs: Initial Vital Signs Temperature 97.5 F L 09/06/24 08:43 Temperature Source Temporal Artery Scan 09/06/24 08:43 Pulse Rate 63 09/06/24 08:43 Respiratory Rate 16 09/06/24 08:43 Blood Pressure 134/79 09/06/24 08:43 Blood Pressure Mean 97 09/06/24 08:43 Blood Pressure Position Sitting 09/06/24 08:43 Pulse Oximetry 95 09/06/24 08:43 Oxygen Delivery Method Room Air 09/06/24 08:43 Vital Signs Temperature 97.5 F L 09/06/24 08:43 Pulse Rate 63 09/06/24 08:43 Respiratory Rate 16 09/06/24 08:43 Blood Pressure 134/79 09/06/24 08:43 Pulse Oximetry 95 09/06/24 08:43 Oxygen Delivery Method Room Air 09/06/24 08:43 Temperature 97.5 F L 09/06/24 08:43 Pulse Rate 63 09/06/24 08:43 Respiratory Rate 16 09/06/24 08:43 Blood Pressure 134/79 09/06/24 08:43 Pulse Oximetry 95 09/06/24 08:43 Oxygen Delivery Method Room Air 09/06/24 08:43 MDM - Extremity Injury (Lower) MDM Narrative Medical decision making narrative: This patient injured his left knee as described above. He is able to ambulate but feels some instability. The location of his pain and information from examining his knee give significant suggestion of an MCL sprain. I did discuss the role of x-ray imaging which was declined at this point. The patient did receive a knee immobilizer. He states that he does not need crutches. I did provide a return to work note and encouraged him to follow-up with orthopedic clinic for ongoing management. Discharge Plan Discharge Clinical Impression: MCL sprain of left knee Patient Disposition: Home, Self-Care Condition: Unchanged Additional Instructions: Wear knee immobilizer. Use [id number] medicines as needed and directed. Follow-up with orthopedic clinic for ongoing management. Call [phone] for appointment. Return if worsening. Prescriptions: No Action spironolactone 25 mg tablet 12.5 mg PO QDAY carvedilol 6.25 mg tablet 3.125 mg PO BID Patient Comments: Patient takes half a tab losartan 50 mg tablet 50 mg PO BID omeprazole 20 mg capsule,delayed release(DR/EC) 20 mg PO QDAY rosuvastatin 10 mg tablet 10 mg PO QPM zolpidem 10 mg tablet 10 mg PO QHS PRN (Reason: insomnia) Qty: 10 2RF Follow Up/Referrals: Lawson Bal MD [Primary Care Provider] - Stand Alone Forms: [email or web address] Info Instructions
--- OUTSIDE RECORDS SUMMARY | 2024-09-06 09:22 | XMS_ITS | Clinical Summary ---
Author Organization [facility] [employer] [facility] Address [address] [place] [address] Care Team Providers Care Typing Bookkeeper Name Role Phone Racheal Saldana MD Unavailable [phone] [facility], [facility] Unavailable [phone] Lawson Bal MD Primary Care Provider [phone] Allergies Active Allergy Reactions Criticality Noted Date [...] Due for cardiology follow up. Please call [phone] to schedule. 180 Tablet 06/02/19 25 Active acetaminophen (TYLENOL) 325 mg tabletIndicatio ns:pain Take 650 mg by mouth every 4 hours if needed. Max acetaminophen dose: 4000mg in 24 hrs. Indications: Pain 025 Discontin ued(*Keerthi ent states no longer taking) furosemide (LASIX) 20 mg tabletIndicatio ns:SOB (shortness of breath) TAKE ONE-HALF TABLET EVERY DAY DIRECTED BY [facility] 15 Tablet 12/08/19 23 025 Discontin ued(*Keerthi ent states no longer taking) Active Problems Problem Noted Date Diagnosed Date Primary cardiomyopathy 04/04/2021 Cardiomyopathy 05/12/2019 Allergic rhinitis, cause unspecified 08/10/2007 Screening for lipoid disorders 08/10/2007 Overview (08/10/2007): 02-22-2006 Total-214 LDL-136 HDL-45 Trig-163 Encounters Date Type Department Care Team Description 08/23/2024 3:00 PM CDT Office Visit [facility] [address] [place] [address] [address] [place] [address] Cortes Panda MD Follow Up (Annual f/u. Echo prior. Pt states feeling good. No recent cardiac symptoms.) 08/23/2024 1:21 PM CDT - 08/23/2024 11:59 PM CDT Hospital Encounter [facility] [address] [place] [address] Cortes Panda MD Primary cardiomyopathy (HC); Heart failure, unspecified HF chronicity, unspecified heart failure type (HC) 08/23/2024 Travel 08/19/2024 Travel from Last 3 Months Immunizations Immunization Administration Dates Next Due Td (Age >=7 Years) 04/26/1999 Family History Medical History Relation Name Comments Unknown Father [place] age 40 Other Maternal Uncle Kidney Failur e Thyroid Disease Mother Diabetes Paternal Aunt 1 Other Paternal Aunt 2 [place] Allergies Sister 2 Relation Name Status Comments [...] on file 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 Procedure: 2D, Color [...] . This study was interpreted by an [facility] accredited facility. Final Procedure Note Cortes Panda MD - 08/23/2024 ECHOCARDIOGRAM HARVINDER LLANES : 1960 63 years Study Date: 08/23/2024 1:41:52 PM Gender: M BP: 130/92 mmHg Height: 180.00 cm BSA: 2.41 m Weight: 124.00 kg Tech: NB Referring MD: CORTES PANDA Site: [facility] Reading Location: [facility] Patient Location: Outpatient. Procedure: 2D, Color [...] . This study was interpreted by an [facility] accredited facility. Final us Cortes Panda MD ECHO ORD Final Result from Last 3 Mon[place] [id number] [place] [address] [place] [id number] [facility] [employer] Advance Directives * Full Code (Latest Code Status on File) Date Activated Date Inactivated Comments 12/05/2018 11:59 AM 12/05/2018 3:12 PM Care Teams Typing Bookkeeper Relationship Specialty Start Date End Date Lawson Bal MD [address] [place] [address] PCP - General Family Practice 06/02/23 Racheal Saldana MD [address] [place] [phone] 12/30/10 [facility], [facility] [address] [address] Cardiology - CHF 06/11/22
[2024-09-06 09:36] VITALS: BP 134/79; PULSE 63; RESP 16; TEMP 36.4
== END 2024-09-06 09:37 | disposition home or self-care (01) ==
LOC: ED 09:20
PROVIDERS: Emergency Provider Emergency Medicine Emergency Medical Services; PCP Family Medicine
DX: S83.422A Sprain of lateral collateral ligament of left knee, initial encounter (principal)
CPT/HCPCS: 99283; 99284

== ENCOUNTER 2024-09-08 10:04 | Emergency (ER) | payer BC, MEDICARE, SELFPAY ==
[2024-09-08 10:44] VITALS: BP 135/80; PULSE 62; RESP 18; TEMP 36.8; O2SAT 97; BMI 38.4
--- NOTE | 2024-09-08 12:40 | ED.GENADULT ---
HPI - General Adult General Chief complaint: Extremity Pain/Injury, Lower Stated complaint: left knee pain and swelling Time Seen by Provider: 09/08/24 11:35 History of Present Illness HPI narrative: Patient reports swelling in left foot. This is not necessarily different than usual as this does happen from heart failure periodically according to patient. He was seen on Wednesday for knee pain and was not sure tf foot was related. Denies swelling to knee, pain has remained the same and patient encouraged to follow up with Ortho. 63-year-old man presenting to the emergency department with concern of left knee pain swelling History of MCL sprain of the left knee and a history of left Foot plantar fasciitis Was seen yesterday in the emergency department following a fall where he felt a pop in his left knee. He describes some medial knee pain and ultimately looks like was diagnosed with MCL sprain. He does not think it really swelled. Today he is noting more swelling in his left foot. He says that that normally only happens if his heart failure has flared a little. He he says this only seems to affect his left side. Is not having any pain. Feels a sense of instability in the left knee at times. No imaging was done as he and the Dr. apparently agreed that there was doubtful to be any bony injury. Sounds like was given a knee immobilizer. He is not wearing that here today. He notes that he had pain in the inferior medial left knee. When I go to stress him on exam though today he is surprised to see that is not present. He does recall eating a piece of ham yesterday. Says that tends to cause him to gain fluid in his legs/legs. Just the does not think that his right foot was swollen. During exam then we do exam is right foot and he realizes it is a little swollen as well and then more so suspects that him might be related. He does not have a diuretic that he takes during this case Related Data Home Medications ?Medication ?Instructions ?Recorded ?Confirmed rosuvastatin 10 mg tablet 10 mg PO QPM 10/26/22 06/23/24 spironolactone 25 mg tablet 12.5 mg PO QDAY 06/09/23 06/23/24 carvedilol 6.25 mg tablet 3.125 mg PO BID 07/26/23 06/23/24 losartan 50 mg tablet 50 mg PO BID 07/26/23 06/23/24 omeprazole 20 mg capsule,delayed 20 mg PO QDAY 07/26/23 06/23/24 release Previous Rx's ?Medication ?Instructions ?Recorded zolpidem 10 mg tablet 10 mg PO QHS PRN insomnia #10 tabs 03/29/24 Allergies Allergy/AdvReac Type Severity Reaction Status Date / Time cyclobenzaprine Allergy Intermediate Headache Verified 06/23/24 12:40 esomeprazole Allergy Unknown Abdominal Verified 06/23/24 12:40 Pain amoxicillin AdvReac Severe Verified 06/23/24 12:40 Penicillins AdvReac Verified 06/23/24 12:40 Sulfa Antibiotics Allergy Unknown itching Uncoded 06/23/24 12:40 and swelling in hands and feet Review of Systems Status of ROS: Reports: 6 or more systems reviewed and unremarkable except as noted in History and below [facility] Medical History Tremor ?R25.1 - Tremor, unspecified (ICD-10) Toe cyanosis ?R23.0 - Cyanosis (ICD-10) Nasal polyp ?J33.9 - Nasal polyp, unspecified (ICD-10) Carpal tunnel syndrome ?G56.00 - Carpal tunnel syndrome, unspecified upper limb (ICD-10) COVID-19 ?U07.1 - COVID-19 (ICD-10) Surgical History History of umbilical hernia repair ?Z98.890 - Other specified postprocedural states (ICD-10) ?Z87.19 - Personal history of other diseases of the digestive system (ICD-10) Status post nasal polypectomy ?Z98.890 - Other specified postprocedural states (ICD-10) Status post cholecystectomy ?Z90.49 - Acquired absence of other specified parts of digestive tract (ICD-10) Social History Smoking Status: Never smoker Do you use any of these nicotine containing products: None Second hand tobacco smoke exposure: No How often do you have a drink containing alcohol: never How often do you have six or more drinks on one occasion: Never AUDIT-C Alcohol total score: 0 Non-prescribed substance use: denies use Caffeine: Yes service: Yes Exam Narrative: Exam Narrative: Pleasant. NAD. Breathing easily. Lungs appear to be clear. Heart in regular rate and rhythm at a slower rate though. Lower extremities with trace edema left maybe a little bit more than the right. There is a patch of possibly eczematous skin on the anterior left otero. Negative Homans. Knee is without clear effusion. Has no laxity to varus or valgus stressors the seems to protect a little bit with valgus stress of the left knee. Negative Ginger's. Extending and flexing without notable difficulty. Const: Vital Signs, click to edit/add: Vital Signs - 24 hr 09/08/24 10:44 Temperature 98.3 F Pulse Rate [Pulse Oximeter] 62 Respiratory Rate 18 Blood Pressure [Ri t Upper Arm] 135/80 Pulse Oximetry 97 Oxygen Delivery Me thod Room Air Documenting provider has reviewed patient's vital signs: yes Course Vital Signs Vital signs: Initial Vital Signs Temperature 98.3 F 09/08/24 10:44 Temperature Source Temporal Artery Scan 09/08/24 10:44 Pulse Rate 62 09/08/24 10:44 Respiratory Rate 18 09/08/24 10:44 Blood Pressure 135/80 09/08/24 10:44 Blood Pressure Mean 98 09/08/24 10:44 Pulse Oximetry 97 09/08/24 10:44 Oxygen Delivery Method Room Air 09/08/24 10:44 Vital Signs Temperature 98.3 F 09/08/24 10:44 Pulse Rate 62 09/08/24 10:44 Respiratory Rate 18 09/08/24 10:44 Blood Pressure 135/80 09/08/24 10:44 Pulse Oximetry 97 09/08/24 10:44 Oxygen Delivery Method Room Air 09/08/24 10:44 Temperature 98.3 F 09/08/24 10:44 Pulse Rate 62 09/08/24 10:44 Respiratory Rate 18 09/08/24 10:44 Blood Pressure 135/80 09/08/24 10:44 Pulse Oximetry 97 09/08/24 10:44 Oxygen Delivery Method Room Air 09/08/24 10:44 Medical Decision Making MDM Narrative Medical decision making narrative: Appears to have some mild lower extremity edema bilaterally. Unclear if there may have been more of an effusion mobilized and went distal or whether less activity has contributed to some increased peripheral edema. He seems to think the ham he had recently would have contributed. Does not appear to be having any respiratory or cardiac symptoms otherwise. He admits that is a little embarrassed now that he has come in having not noticed that his right foot/lower leg was also little swollen. I think it is unlikely that he has DVT contributing to his symptoms here today. Appears to be improved from what sounds to have been a knee sprain. See patient discharge plan for further discussion Treat the edema the way you know best. See handout on medial collateral ligament sprain. This does appear to be a diagnosis consistent with your exam/presentation. These exercises might be helpful. It is possible you have labral injury but time will tell. If not significantly improved in a week to 10 days, would follow up for re-evaluation. Wear your knee immobilizer as able/needed over this next week. Continue to ice 2-3 times daily over the next few days Medical Records Medical records reviewed: Yes I reviewed the patient's medical records Discharge Plan Discharge Clinical Impression: Edema, peripheral, Knee sprain Patient Disposition: Home, Self-Care Condition: Stable Instructions: Knee Sprain (DC) Additional Instructions: Treat the edema the way you know best. See handout on medial collateral ligament sprain. This does appear to be a diagnosis consistent with your exam/presentation. These exercises might be helpful. It is possible you have labral injury but time will tell. If not significantly improved in a week to 10 days, would follow up for re-evaluation. Wear your knee immobilizer as able/needed over this next week. Continue to ice 2-3 times daily over the next few days Prescriptions: No Action spironolactone 25 mg tablet 12.5 mg PO QDAY carvedilol 6.25 mg tablet 3.125 mg PO BID Patient Comments: Patient takes half a tab losartan 50 mg tablet 50 mg PO BID omeprazole 20 mg capsule,delayed release(DR/EC) 20 mg PO QDAY rosuvastatin 10 mg tablet 10 mg PO QPM zolpidem 10 mg tablet 10 mg PO QHS PRN (Reason: insomnia) Qty: 10 2RF Follow Up/Referrals: Lawson Bal MD [Primary Care Provider, Family Practice] Stand Alone Forms: [employer] Info Instructions
--- OUTSIDE RECORDS SUMMARY | 2024-09-10 14:07 | XMS_ITS | Clinical Summary ---
Author Organization [facility] Address [address] [place] [address] Care Team Providers Care Draw Off Worker Name Role Phone Racheal Saldana MD Unavailable [phone] [facility] Unavailable [phone] Lawson Bal MD Primary Care Provider [...] Due for cardiology follow up. Please call [phone] to schedule. 180 Tablet 06/02/19 25 Active acetaminophen (TYLENOL) 325 mg tabletIndicatio ns:pain Take 650 mg by mouth every 4 hours if needed. Max acetaminophen dose: 4000mg in 24 hrs. Indications: Pain 025 Discontin ued(*Keerthi ent states no longer taking) furosemide (LASIX) 20 mg tabletIndicatio ns:SOB (shortness of breath) TAKE ONE-HALF TABLET EVERY DAY DIRECTED BY [facility] 15 Tablet 12/08/19 23 025 Discontin ued(*Keerthi ent states no longer taking) Active Problems Problem Noted Date Diagnosed Date Primary cardiomyopathy 04/04/2021 Cardiomyopathy 05/12/2019 Allergic rhinitis, cause unspecified 08/10/2007 Screening for lipoid disorders 08/10/2007 Overview (08/10/2007): 02-22-2006 Total-214 LDL-136 HDL-45 Trig-163 Encounters Date Type Department Care Team Description 08/23/2024 3:00 PM CDT Office Visit [facility] [address] [place] [address] [address] [place] [address] Cortes Panda MD Follow Up (Annual f/u. Echo prior. Pt states feeling good. No recent cardiac symptoms.) 08/23/2024 1:21 PM CDT - 08/23/2024 11:59 PM CDT Hospital Encounter [facility] [address] [place] [address] Cortes Panda MD Primary cardiomyopathy (HC); Heart failure, unspecified HF chronicity, unspecified heart failure type (HC) 08/23/2024 Travel 08/19/2024 Travel from Last 3 Months Immunizations Immunization Administration Dates Next Due Td (Age >=7 Years) 04/26/1999 Family History Medical History Relation Name Comments Unknown Father OR age 40 Other Maternal Uncle Kidney Failur e Thyroid Disease Mother Diabetes Paternal Aunt 1 Other Paternal Aunt 2 OR Allergies Sister 2 Relation Name Status Comments [...] on file 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 Procedure: 2D, Color Doppler [...] . This study was interpreted by an [facility] accredited facility. Final Procedure Note Cortes Panda MD - 08/23/2024 ECHOCARDIOGRAM HARVINDER LLANES : 1960 63 years Study Date: 08/23/2024 1:41:52 PM Gender: M BP: 130/92 mmHg Height: 180.00 cm BSA: 2.41 m Weight: 124.00 kg Tech: NB Referring MD: CORTES PANDA Site: [facility] Reading Location: [facility] Patient Location: Outpatient. Procedure: 2D, Color Doppler [...] . This study was interpreted by an [facility] accredited facility. Final us Cortes Panda MD ECHO ORD Final Result from Last 3 [place] [id number] [place] [address] [place] [id number] [facility] ALLSTATE Advance Directives * Full Code (Latest Code Status on File) Date Activated Date Inactivated Comments 12/05/2018 11:59 AM 12/05/2018 3:12 PM Care Teams Draw Off Worker Relationship Specialty Start Date End Date Lawson Bal MD [address] [place] [address] PCP - General Family Practice 06/02/23 Racheal Saldana MD [address] [place] [id number] 12/30/10 [facility] [address] [address] Cardiology - CHF 06/11/22
== END 2024-09-08 13:21 | disposition home or self-care (01) ==
PROVIDERS: Emergency Provider Family Medicine; PCP Family Medicine
DX: S83.92XA Sprain of unspecified site of left knee, initial encounter (principal); R60.9 Edema, unspecified
CPT/HCPCS: 99282; 99283; 99284

== ENCOUNTER 2024-10-25 09:37 | Outpatient (CLI) | payer BC, MEDICARE, SELFPAY ==
--- NOTE | 2024-10-25 10:15 | MR_ITS ---
[address] [address] Phone:?[phone] Fax:?[phone] Referring Physician Information: Freeman Machado M.D. [address] [facility] [place] [address] Phone:?[phone] Fax:?[phone] Patient:Verenice Llanes D.O.B:?1960 Sex:?Male Phone:?[phone] [facility] MRN:?[id number] Exam Date:?10/25/2024 EXAM: MRI of the LEFT KNEE, without contrast CLINICAL INFORMATION: Male, 64 years old, with left knee pain. INDICATION: Evaluate for meniscal tear. PRIOR SURGERY: None reported. PLAIN FILMS: None available. COMPARISONS: No prior MRIs available. TECHNICAL INFORMATION: Using a 1.5T MR scanner and a localizing surface coil: sagittals: PD, PDFS coronals: PD, T2FS axials: PD, PDFS SEDATION: None CONTRAST: None FINDINGS: Knee joint: Effusion: Small left knee effusion. Popliteal cyst: Tiny, unruptured popliteal (Lambert's) cyst. Loose bodies: None. Subcutaneous and extra-articular soft tissues: Unremarkable. Ligaments: ACL: Moderate thickening and abnormal signal throughout the ACL, without ACL tear (sagittal PDFS series 6 image 17 and coronal STIR series 8 image 20) PCL: Intact PCL, without acute or chronic injury. MCL: Abnormal signal and ill-defined full or near full-thickness disruption of the proximal 3rd of the superficial MCL as well as the meniscofemoral component of the deep MCL (coronal STIR series 8 images 16-19 and axial T2FS series 4 images 16-21). LCL: Intact LCL, without injury. Posterolateral corner: No posterolateral corner soft tissue injury. Popliteus, biceps femoris, iliotibial band, popliteofibular ligament and lateral gastrocnemius are intact. Posteromedial corner: Mild semimembranosus tendinopathy without tear. Pes anserine tendons and posterior oblique ligament are without injury, tendinopathy or bursitis. Extensor mechanism: Patellar tendon: Intact, without tendinopathy. Quadriceps tendon: Intact, without tendinopathy. Retinacula: Medial and lateral retinacula are intact. Fat pads: Moderate edema-like signal throughout the suprapatellar fat pad (sagittal PDFS series 6 images 16-22). Medial compartment: Medial meniscus: Abnormal signal and irregularity is present throughout the posterior meniscocapsular junction (sagittal PDFS series 6 images 8-13). Apical free edge and undersurface tearing involving the posterior one half of the body segment measuring 1.3 cm (coronal STIR series 8 images 17-20 and sagittal PDFS series 6 images 8-10). Meniscal extrusion measures 4 mm. No parameniscal cyst. Medial femoral condyle & tibial plateau: Broad-based grade II chondromalacia throughout the central, weightbearing aspect of the medial compartment, with minimal marginal osteophytosis. Lateral compartment: Lateral meniscus: No articular surface, meniscosynovial junction or root tear. No displacement, extrusion or parameniscal cyst. Lateral femoral condyle: No chondromalacia or osteochondral abnormality. Lateral tibial plateau: No chondromalacia or osteochondral abnormality. Patellofemoral joint: Patella: No chondromalacia or osteochondral abnormality. Trochlea: No chondromalacia or osteochondral abnormality. Proximal tibiofibular joint: Unremarkable, without evidence of ligament sprain injury, joint effusion or adjacent marrow edema. Bones: No stress/occult fractures or other marrow edema/pathology. IMPRESSION: 1. Marked sprain and high-grade tearing of the proximal one third of the superficial MCL is well as the meniscofemoral component of the deep MCL. 2. Moderate mucinous degeneration versus marked grade 1 sprain of the ACL, without ACL tear. 3. Posterior meniscocapsular junction sprain of the medial meniscus with apical free edge and undersurface tearing of the body segment measuring 1.3 cm and with 4 mm of meniscal extrusion. 4. Minimal osteoarthritis of the medial compartment. 5. Nonspecific soft tissue edema throughout the suprapatellar fat pad, which could reflect fat pad impingement. 6. Small knee joint effusion with a tiny, unruptured popliteal (Lambert's) cyst. 7. No osteochondral abnormality of the lateral or patellofemoral compartment. BC Electronically signed on 10/25/2024 11:32:00 AM by Perry Ahumada M.D.
== END 2024-10-25 09:38 | disposition home or self-care (01) ==
LOC: MRI 09:39
PROVIDERS: PCP Family Medicine; Visit Provider Orthopaedic Surgery Sports Medicine
DX: M25.562 Pain in left knee (principal); S83.242A Other tear of medial meniscus, current injury, left knee, initial encounter; S83.412A Sprain of medial collateral ligament of left knee, initial encounter; M25.462 Effusion, left knee
CPT/HCPCS: 73721

== ENCOUNTER 2024-10-26 13:46 | Outpatient (CLI) | payer BC, MEDICARE, SELFPAY | END 2024-10-26 13:47 | disposition home or self-care (01) | LOC: NFLDREF 13:49 | PROVIDERS: PCP Family Medicine; Visit Provider Family Medicine | DX: Z12.5 Encounter for screening for malignant neoplasm of prostate (principal) | CPT/HCPCS: G0103 ==

== ENCOUNTER 2025-02-04 16:09 | Emergency (ER) | payer BC, MEDICARE, SELFPAY ==
--- OUTSIDE RECORDS SUMMARY | 2025-02-04 16:11 | XMS_ITS | Clinical Summary ---
Author Organization [employer] [facility] Address [address] [place] [address] Care Team Providers Care Space Control Agent Name Role Phone Racheal Saldana MD Unavailable [phone] [facility] Unavailable [phone] Lawson Bal MD Primary Care Provider [...] daily before a meal. 0 01/30/2013 Active carvediloL 3.125 mg tabletIndication s:Heart failure, unspecified HF chronicity, unspecified heart failure type (HC) Take 1 Tablet (3.125 mg) by mouth two times daily with meals. 180 Tablet 3 09/22/2024 Active rosuvastatin 10 mg tabletIndication s:Dyslipidemia TAKE 1 TABLET(10 MG) BY MOUTH AT BEDTIME 90 Tablet 3 09/26/2024 Active losartan 50 mg tabletIndication s:Chronic HFrEF (heart failure with reduced ejection fraction) (HC) Take 1 Tablet (50 mg) by mouth two times daily. 180 Tablet 3 10/09/2024 Active spironolactone 25 mg tabletIndication s:Heart failure, unspecified HF chronicity, unspecified heart failure type (HC) Take 0.5 Tablets (12.5 mg) by mouth once daily. 45 Tablet 3 10/18/2024 Active Active Problems Problem Noted Date Diagnosed Date Primary cardiomyopathy 04/04/2021 Cardiomyopathy 05/12/2019 Allergic rhinitis, cause unspecified 08/10/2007 Screening for lipoid disorders 08/10/2007 Overview (08/10/2007): 02-22-2006 Total-214 LDL-136 HDL-45 Trig-163 Immunizations Immunization Administration Dates Next Due Td (Age >=7 Years) 04/26/1999 Family History Medical History Relation Name Comments Unknown Father MA age 40 Other Maternal Uncle Kidney Failur e Thyroid Disease Mother Diabetes Paternal Aunt 1 Other Paternal Aunt 2 MA Allergies Sister 2 Relation Name Status Comments [...] on file 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 Gender Identity Not on file Sexual Orientation [...] Health Maintenance Due Date Last Done Comments Depression screening for age 12+ 1970 Hepatitis C screening for age 18-79 1976 Pneumococcal series for age 50+ (1 of 2 - PCV) 1977 Colonoscopy through age 75 10/18/2003 Zoster (shingles) series for age 50+ (1 of 2) 2008 Tetanus booster 04/26/2009 04/26/1999 Lipids for age 45-75 02/22/2011 02/22/2006 (Completed outside of [facility]) COVID-19 vaccine series (2 - 2024- season) 2024 2020 Influenza Vaccine (#1) 2024 BMI (ht and wt on same day) for age 18+ 08/23/2025 08/23/2024, 07/27/2023, 08/06/2022, Additional history exists RSV vaccine for adults or (1 - 1-dose 75+ series) 2033 Hepatitis B series for 19+ Aged Out N o longer eligible based on patient's age to complete [place] [id number] [facility] [id number] [facility] ALLSTATE Advance Directives * Full Code (Latest Code Status on File) Date Activated Date Inactivated Comments 12/05/2018 11:59 AM 12/05/2018 3:12 PM Care Teams Space Control Agent Relationship Specialty Start Date End Date Lawson Bal MD [address] [place] [address] PCP - General Family Practice 06/02/23 Racheal Saldana MD [address] [place] [address] 12/30/10 [facility] [address] [address] Cardiology - CHF 06/11/22
--- OUTSIDE RECORDS SUMMARY | 2025-02-04 16:11 | XMS_ITS | Data Portability ---
Author Organization MD - [facility], [employer] Address [address] [facility] [place] [address] Assessment Encounter Date Assessment Date Assessment LastModified by Organization Details LastModified Time 12/04/2024 12/04/2024 Educated patient on the etiology, prognosis, treatment options for plantar fasciitis. Ordered three weightbearing radiographs of the left foot at [facility] and reviewed my individual findings with patient as noted above. For the diagnosis of left plantar fasciitis, the clinical presentation of post-static dyskinesia, pain localized to the medial calcaneal tubercle, and radiographic evidence of infracalcaneal exostosis and pes planus support this diagnosis. Recommended a six-day oral steroid taper (Medrol dose pack) to address the inflammatory cycle, with prescription sent to the patient s preferred pharmacy. Advised strict avoidance of barefoot walking, slippers, and sandals, and instructed to wear supportive gym shoes at all times, including at home. Discussed the importance of firm arch support; patient was provided with PedPillows and instructed on gradual break-in protocol (increasing wear time by one hour daily). Reinforced the need for daily Achilles and plantar fascia stretching, including wall and stair stretches, with specific instructions on frequency and duration. Advised against running or high-impact activity until symptoms are controlled and new orthotic is acclimated. Scheduled follow-up in two weeks to reassess pain and function. For bilateral pes planus, explained the contribution of flatfoot deformity to plantar fasciitis and the need for ongoing arch support. Discussed the potential for custom orthotics if bxvx-mar-[id number] options are insufficient. For hammer toes and hallux varus, noted as chronic, congenital findings without current pain or functional limitation. No intervention required at this time; will monitor. For history of left fifth toe fracture, no acute findings on exam or imaging. Advised continued observation and protected weightbearing as tolerated. No further intervention required unless symptoms worsen. Patient verbalized understanding and is in agreement with the above treatment plan. Not available 12/05/2024 12:03:03 12/18/2024 12/18/2024 Discussed medica l conditions with patient today. He has responded very well with conservative care. For plantar fasciitis of the left foot, recommended continuation of current conservative measures, including daily stretching exercises and consistent use of arch-supporting inserts. Advised to avoid high-impact activities such as running for at least two more weeks, then to gradually reintroduce jogging with incremental increases in distance and rest days between sessions. Patient was instructed to monitor for any recurrence or worsening of symptoms and to contact the office if pain returns or increases. No further intervention is necessary at this time, and a return visit will be scheduled as needed based on symptoms. Patient verbalized understanding and is in agreement with the above treatment plan. Not available 12/19/2024 12:58:01 Plan of Treatment Reminders Order Date Submit Date Provider Last Modified By Organization Details Last Modified Time Details Appointments None recorded. Lab None recorded. Referral None recorded. Procedures None recorded. Surgeries None recorded. Imaging None recorded. Medication Orders Medrol (Cole) 4 mg tablets in a dose pack 025 025 [id number], [address], [place], [phone], 11:59:39 Patient TargetsNo targets recorded. Patient InstructionsNo instructions recorded. Reason for Referral None Reported. Medical Equipment None Reported. Allergies Allergen ID Allergen Name Allergen Category Reaction Reaction Severity Criticality Documentation Date Start Date Code Code System Note Provider Name and Address Organization Details Recorded Time 44258 cyclobenz aprine medicatio n Not available Not available Not available 12/19/2024 59603 RxNorm Paula smith [facility] 09:53:50 97094 esomepraz ole Not available Not available Not available Not available 12/19/2024 71398 2 RxNorm Paula smith [facility] 09:53:59 74666 Substance with sulfonami de structure and antibacte rial mechanism of action (substanc e) medicatio n Not available Not available Not available 12/19/2024 30282 8003 SNOMED Paula smith, [place] - [facility] 5 09:54:04 78452 amoxicill in medicatio n Not available Not available Not available 12/19/2024 723 RxNorm Paula smith, [place] - [facility] 5 09:54:11 82521 Product containin g penicilli n (product) medicatio n Not available Not available Not available 12/19/2024 78636 8001 SNOMED Paula smith, [place] - [facility] 5 09:54:17 Medications Name Sig Start Date Stop Date Status Note LastModified by Organization Details LastModified Time doxycycline hyclate 100 mg capsule TAKE 1 CAPSULE BY MOUTH TWICE DAILY active Not Available Not Available No t Available azithromyci n 250 mg tablet TAKE 1 TABLET BY MOUTH TWICE DAILY active Not Available Not Available No t Available prednisone 20 mg tablet TAKE 2 TABLETS BY MOUTH EVERY DAY FOR 4 DAYS THEN TAKE 1 TABLET BY MOUTH EVERY DAY FOR 6 DAYS DIRECTED active Not Available Not Available No t Available triamcinolo ne acetonide 0.1 % topical cream APPLY TOPICALLY TO THE AFFECTED AREA TWICE DAILY active Not Available Not Available No t Available tamsulosin 0.4 mg capsule TAKE 1 TO 2 CAPSULES BY MOUTH EVERY NIGHT AT BEDTIME. active Not Available Not Available No t Available zolpidem 10 mg tablet TAKE 1 TABLET BY MOUTH EVERY DAY AT BEDTIME NEEDED FOR INSOMNIA 12/19 completed Not Available Not Available Not Available methylpredn isolone 4 mg tablets in a dose pack FOLLOW PACKAGE DIRECTION S active Not Available Not Available No t Available omeprazole active Not Available Not Av ailable Not Available carvedilol active Not Available Not Av ailable Not Available spironolact one active Not Available Not Available Not Available losartan active Not Available Not Avai lable Not Available rosuvastati n active Not Available Not Available Not Available Vitals None Recorded Social History None recorded. Functional Status None recorded. Mental Status None recorded. Family History Nothing Reported. Medical History No medical history recorded. Past Encounters Encounter ID Performer Location Encounter Start Date Encounter Closed Date Diagnosis/Indication Diagnosis SNOMED-CT Code Diagnosis ICD10 Code Diagnosis IMO Codes Diagnosis Note [id number] SRIRAM ARTIS [facility] [address] [place] [address] 12/04/2024 11:45:00 12/05/2024 13:56:57 Plantar fasciitis M72.2 11185 Contractur e of joint of left ankle [id number] 24310 M24.825 9656385 Contractur e of joint of right ankle [id number] 80865 M24.549 7323865 Congenital bilateral hallux varus 2450359238 9080644 Q66.31 Q66.32 [id number] Hammer toe 440076644 M20 .41 M20.42 11883525 Talipes planus 62383512 M21.41 M21.42 43683181 Pain in left foot 481222 8762 46303 M79.672 737488 [id number] SRIRAM ARTIS [facility] [address] [place] [address] 12/18/2024 10:16:49 12/19/2024 14:25:08 Plantar fasciitis 968567248 M72.2 25238 Contractur e of joint of left ankle 2805705358 01109 M24.176 7477666 Contractur e of joint of right ankle 1099743124 32504 M24.455 8911641 Congenital bilateral hallux varus 2024306487 0993583 Q66.31 Q66.32 [id number] Hammer toe 563050862 M20 .41 M20.42 92784016 Talipes planus 45528021 M21.41 M21.42 33206204 Pain in left foot 293711 5989 15380 M79.672 023314 Health Concerns Section Related Observation LastModified by Organization Detai ls LastModified Time None Recorded Concern Status LastModified by Organization Details LastModified Time None Recorded Advance Directives Directive None Recorded Payers Insurance Date Sequence Insurance Name Policy Number Policy Arredondo Covered Member ID Arredondo Member ID Guarantor Name 12/18/2024 1 [place] [id number] Harvinder Llanes [id number] Harvinder Llanes Notes Date Note Type Note Provider Name and Address Organization Details Recorded Time 12/04/2024 text/html The patient presents with ongoing left plantar heel pain, previously diagnosed as plantar fasciitis by Dr. Bal. They report a history of heart disease and state that running improves their overall well-being, including blood pressure and sleep, but have been unable to run since hernia surgery last year due to worsening foot pain. The pain is localized to the bottom of the left foot, initially more diffuse but now focused on the heel. 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 By Wednesday morning, symptoms are minimal, but pain recurs with the workweek. The right foot is asymptomatic.They have attempted stretching, ice packs (which worsened discomfort), massage (which provides some relief), and use of various jpip-gpj-dinjzpa inserts and new shoes. The patient has tried three different inserts, currently using a foam-based arch support. They also use a compression sock at home for short periods, which helps temporarily but causes discomfort if worn too long. The patient has not used NSAIDs due to cardiac history.Additional ly, the patient reports a history of flat feet, diagnosed in the , and has used hard, supportive inserts in the past with good tolerance. They recently switched to softer inserts, believing cushioning would help, but are open to returning to firmer support. The patient also notes a recent injury to the left fifth toe, sustained 12 days ago, with persistent but improving discomfort and no prior imaging. SRIRAM ARTIS, MAT[address] [place], [address], [facility] - [facility] 12/05/2024 12:04:04 12/18/2024 text/html The patient presents for ongoing management of left foot heel pain, previously diagnosed as plantar fasciitis. They report significant improvement since the last visit, noting that pain has decreased from a level of four to about one, especially on recent days. The discomfort is now minimal and only present occasionally, with the majority of days being pain-free. They continue to perform stretching exercises two to three times daily, more frequently on weekends than during workdays. The patient states that as long as they wear the pedpillow inserts, they are able to walk normally without pain. They recall that the inserts provided immediate relief, even before starting the prescribed steroid pack. No new treatments have been attempted since the last visit, and there are no reports of worsening symptoms. The patient expresses interest in returning to running and inquires about the appropriate timeline for resuming this activity. PRIOR HISTORY:The patient presents with ongoing left plantar heel pain, previously diagnosed as plantar fasciitis by Dr. Bal. They report a history of heart disease and state that running improves their overall well-being, including blood pressure and sleep, but have been unable to run since hernia surgery last year due to worsening foot pain. The pain is localized to the bottom of the left foot, initially more diffuse but now focused on the heel. 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 By Wednesday morning, symptoms are minimal, but pain recurs with the workweek. The right foot is asymptomatic.They have attempted stretching, ice packs (which worsened discomfort), massage (which provides some relief), and use of various ftcm-xif-kkmfdao inserts and new shoes. The patient has tried three different inserts, currently using a foam-based arch support. They also use a compression sock at home for short periods, which helps temporarily but causes discomfort if worn too long. The patient has not used NSAIDs due to cardiac history.Additional ly, the patient reports a history of flat feet, diagnosed in the , and has used hard, supportive inserts in the past with good tolerance. They recently switched to softer inserts, believing cushioning would help, but are open to returning to firmer support. The patient also notes a recent injury to the left fifth toe, sustained 12 days ago, with persistent but improving discomfort and no prior imaging. SRIRAM ARTIS, [address] [place], [address], [facility] - [facility] 12/19/2024 12:58:15
[2025-02-04 16:27] VITALS: BP 147/75; PULSE 64; RESP 22; TEMP 36.3; O2SAT 93; BMI 40.2
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
--- NOTE | 2025-02-04 17:28 | CRLHL7_ITS ---
For Patients: As a result of the Cures Act, medical imaging exams and procedure reports are released immediately into your electronic medical record. You may view this report before your referring provider. If you have questions, please contact your health care provider. INDICATION: Right anterior rib pain. TECHNIQUE: PA chest and right ribs 3 views. COMPARISON: Chest radiograph 09/06/2023. FINDINGS: Cardiovascular: Stable cardiomegaly. Pulmonary vasculature is within normal limits. Tortuous aorta. Lungs and pleural spaces: The lungs are clear. No sign of pleural effusion. No pneumothorax identified. Bones: Detailed oblique views of the ribs demonstrate a possible nondisplaced fracture of the right anterior 10th rib. Soft tissues: Mild elevation of the right hemidiaphragm. Surgical clips right upper quadrant. Small hiatal hernia. IMPRESSION: 1. Possible nondisplaced fracture of the right anterior 10th rib. 2. Stable cardiomegaly. Dictated by Yamilex Gomez MD @ 02/04/2025 7:35:06 PM (Electronically Signed)
[2025-02-04] MEDS: LIDOCAINE 5% PATCH 1 PATCH TRANSDERMA (17:47)
[2025-02-04 18:06] VITALS: BP 135/87; PULSE 61; RESP 16; O2SAT 98
== END 2025-02-04 19:49 | disposition home or self-care (01) ==
PROVIDERS: Emergency Provider Family Medicine; PCP Family Medicine
DX: S20.211A Contusion of right front wall of thorax, initial encounter (principal); W22.09XA Striking against other stationary object, initial encounter; Y93.01 Activity, walking, marching and hiking; Y99.0 Civilian activity done for income or pay
CPT/HCPCS: 71101; 76705; 99284; 99285; A9270

== ENCOUNTER 2025-03-07 13:24 | Outpatient (CLI) | payer BC, MEDICARE, SELFPAY | END 2025-03-07 13:25 | disposition home or self-care (01) | PROVIDERS: PCP Family Medicine; Visit Provider Family Medicine | DX: E78.5 Hyperlipidemia, unspecified (principal); I10 Essential (primary) hypertension | CPT/HCPCS: 80048; 80061 ==